=== PATIENT | female | born 1960 | race Caucasian/White ===

== ENCOUNTER → 2019-08-04 17:06 | Outpatient (CLI) | payer MEDICAID, SELFPAY ==
[2019-08-04 19:30] LABS: Amphetamine/Metha Screen,Urine Positive ng/mL (<1000); Barbiturates Screen,Urine Negative ng/mL (<200); Benzodiazepines Screen,Urine Negative ng/mL (<200); Cannabinoid Screen,Urine Negative ng/mL (<50); Cocaine Screen,Urine Negative ng/mL (<300); Methadone Screen,Urine Negative ng/mL (<300); Opiate Screen,Urine Negative ng/mL (<300); Phencyclidine Screen,Urine Negative ng/mL (<25)
== END ==
PROVIDERS: Visit Provider Emergency Medicine
DX: F90.9 Attention-deficit hyperactivity disorder, unspecified type (principal); G62.9 Polyneuropathy, unspecified
CPT/HCPCS: 80305

== ENCOUNTER → 2019-08-08 09:02 | Outpatient (CLI) | payer MEDICAID, OTHER, SELFPAY ==
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
--- NOTE | 2019-08-08 09:04 | MR_ITS ---
PROCEDURE: MR SHOULDER RT WO CON CLINICAL INDICATION: RIGHT SHOULDER PAIN COMPARISON: Plain radiographs 07/07/2019 TECHNIQUE: Routine multiplanar multisequence exam was performed. FINDINGS: There is a full-thickness tear of the supraspinatus tendon of the rotator cuff. A fluid-filled gap within the tendon is seen over an approximately 12 millimeter segment. Signal abnormality is also seen within the infra spinatus tendon for which partial substance tearing should be considered. There is a thin rim of fluid in the subacromial/subdeltoid bursa. A moderate amount of fluid is seen in the glenohumeral joint space. There is moderate acromioclavicular joint arthropathy and bony hypertrophy is seen projecting inferior to the acromioclavicular joint and there is some inferior lateral tilt of the distal acromion with inferior acromial spurring. Thickening and signal abnormality consistent with tendinosis and/or partial substance tearing of the subscapularis tendon is noted. There is medial subluxation of the bicipital tendon with some overlying fluid/edema without ajylin dislocation. This would raise the question of integrity of the transverse humeral ligament. Disrupted transverse humeral ligament is not excluded. The bicipital tendon appears intact. Glenoid Karina appear intact. IMPRESSION: Full-thickness tear of the supraspinatus tendon of rotator cuff. Partial-thickness tear of infraspinatus tendon appears to be present. Subscapularis tendinosis and/or partial substance tearing with probable disruption of transverse humeral ligament and with some medial subluxation of bicipital tendon as it overlies the superior humeral head Moderate joint effusion. Acromioclavicular joint arthropathy and hypertrophic bony changes which have likely contributed to chronic impingement. Dictated by: Luis Eduardo Fuentes 08/08/2019 13:48 Electronically signed by Luis Eduardo Fuentes in [place] 08/08/2019 13:48
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
== END ==
PROVIDERS: PCP Emergency Medicine; Visit Provider Orthopaedic Surgery Adult Reconstructive Orthopaedic Surgery
DX: M25.511 Pain in right shoulder (principal); M25.562 Pain in left knee; M25.561 Pain in right knee
CPT/HCPCS: 73221; 73721

== ENCOUNTER 2019-12-20 21:14 | Emergency (ER) | payer MEDICAID, SELFPAY ==
[2019-12-20 21:41] VITALS: BP 120/81; PULSE 81; RESP 20; TEMP 36.7; O2SAT 99; BMI 22.1
--- NOTE | 2019-12-20 22:04 | HMH.EDNVD ---
ED Disposition Clinical Impression: SBO (small bowel obstruction), Small bowel ischemia, Cocaine use Disposition: Xfer Short-Term Hosp Condition on Discharge: Critical Instructions: DI for Acute Abdomen Referrals: Provider,Referral, MD [Primary Care Provider] - - Critical Care Critical Care Time: Yes Attestation: On 12/20/19, the high probability of a clinically significant, sudden or life threatening deterioration of the following system(s) required my full and direct attention, intervention and personal management. The time I documented below is in addition to time spent performing reported procedures but includes the following listed in this critical care notation. Total Critical Care Time: 120 Vital system(s) involved:: Metabolic Failure My critical care processes included: Assessment & monitoring of V/S, Initial and Re-exams, Coordinating Care, Medication Orders and management, Documentation Medical Decision Making - Medical Records Medical records reviewed: Yes: I reviewed the patient's medical records. - Pb Inquiry Pt receiving controlled substance: No Vital Signs: 12/20/19 21:41 12/20/19 23:07 12/20/19 23:58 Temperature 98.0 F Temperature Source Oral Pulse Rate [Right] 81 63 66 Respiratory Rate 20 18 18 Blood Pressure [Right Arm] 120/81 128/82 162/91 H Blood Pressure Mean [Right Arm] 94 97 114 Blood Pressure Source [Right Arm] Automatic Cuff 02 Sat by Pulse Oximetry 99 99 100 Oxygen Delivery Method Room Air Room Air Room Air 12/21/19 00:23 12/21/19 00:48 Temperature Temperature Source Pulse Rate [Right] 84 84 Respiratory Rate 18 18 Blood Pressure [Right Arm] 171/95 H 126/83 Blood Pressure Mean [Right Arm] 120 97 Blood Pressure Source [Right Arm] 02 Sat by Pulse Oximetry 100 98 Oxygen Delivery Method Room Air Room Air - Lab Data Lab results reviewed: Yes: I reviewed the patient's lab results. Lab Results 12/20/19 22:25: Urine Opiates Screen Negative, Urine Methadone Screen Negative, Ur Barbituates Screen Negative, Ur Phencyclidine Scrn Negative, Ur Amphetamines Screen Not Reportable, U Benzodiazepines Scrn Negative, Urine Cocaine Screen Positive H, U Marijuana (THC) Screen Negative 12/20/19 22:35: Urine Color Yellow, Urine Appearance Clear, Urine pH 6.0, Ur Specific [place] 1.025, Urine Protein Negative, Urine Glucose (UA) Negative, Urine Ketones Trace, Urine Blood Trace-i, Urine Nitrate Negative, Urine Bilirubin Negative, Urine Urobilinogen 1.0, Ur Leukocyte Esterase Negative, Urine WBC Occasional, Ur Squamous Epith Cells Occasional, Calcium Oxalate Crystal Trace, Urine Bacteria Trace 12/20/19 23:00: WBC 6.3, RBC 4.25, Hgb 13.0, Hct 38.4, MCV 90.4, MCH 30.6, MCHC 33.9, RDW 14.3, Plt Count 253, MPV 7.7, Neut % (Auto) 75.9, Lymph % (Auto) 15.3, [place] % (Auto) 4.8, Eos % (Auto) 3.4, Baso % (Auto) 0.7, Neut # (Auto) 4.8, Lymph # (Auto) 1.0, [place] # (Auto) 0.3, Eos # (Auto) 0.2, Baso # (Auto) 0.1, ESR 38 H 12/20/19 23:00: Sodium 136, Potassium 3.2 L, Chloride 101, Carbon Dioxide 23, Anion Gap 15.2 H, BUN 19 H, Creatinine 0.70, Estimated Creat Clear 93, Estimated GFR 86, Est GFR ( Amer) 104, Glucose 100, Calcium 8.9, Total Bilirubin 0.7, AST 30, ALT 16, Alkaline Phosphatase 87, C-Reactive Protein 35.8 H, Total Protein 7.2, Albumin 4.0, Globulin 3.2, Albumin/Globulin Ratio 1.3, Amylase 53, Lipase 169 12/20/19 23:00: Lactate 1.0 12/20/19 23:00: SARS-CoV-2 IgG Ab (Rapid) Negative, SARS-CoV-2 IgM Ab (Rapid) Negative Result diagrams: 12/20/19 23:00 12/20/19 23:00 Orders (Tests/Meds): ED MEDICATIONS Generic Name Dose Route Start Last Admin Trade Name Freq PRN Reason Stop Dose Admin Sodium Chloride 1,000 mls @ 999 mls/hr 12/20/19 22:15 12/20/19 23:11 Sod Chlor 0.9% 1000ml Bag IV 12/20/19 23:15 999 mls/hr .Q1H1M TRAMAINE Administration Discontinued Medications Generic Name Dose Route Start Last Admin Trade Name Freq PRN Reason Stop Dose Admin Butorphanol Tartrate 1
--- NOTE | 2019-12-20 22:18 | PC.NURSE ---
multiple attempts at IV and Blood draw from lab and Nurses without success, Dr Stuart notified.
[2019-12-20 22:37] LABS: Microscopic, Urine URINE MICROSCOPIC (MICROSCOPIC)
[2019-12-20 22:39] LABS: Appearance,Urine CLEAR (Clear); Bilirubin,Urine Negative (Negative); Blood, Urine TRACE-I (Negative); Color,Urine YELLOW (Yellow); Glucose,Urine (UA) Negative (Negative); Ketones,Urine TRACE (Negative); Leukocyte Esterase,Urine Negative (Negative); Nitrate,Urine Negative (Negative); Protein,Urine Negative (Negative); Specific Gravity, Urine 1.025 (1.005-1.030)
--- NOTE | 2019-12-20 22:45 | PC.NURSE ---
Dr Stuart attempted right femoral central line unable to get placed at this time, Left EJ 18 ga placed.
[2019-12-20 22:51] LABS: Benzodiazepines Screen,Urine Negative ng/ml (<200)
[2019-12-20 22:52] LABS: Barbiturates Screen,Urine Negative ng/ml (<200)
[2019-12-20 22:53] LABS: Cannabinoid Screen,Urine Negative ng/ml (<50)
[2019-12-20 22:54] LABS: Cocaine Screen,Urine Positive ng/ml (<300); Methadone Screen,Urine Negative ng/ml (<300)
[2019-12-20 22:55] LABS: Opiate Screen,Urine Negative ng/ml (<300); Phencyclidine Screen,Urine Negative ng/ml (<25)
[2019-12-20 22:57] LABS: Bacteria,Urine Trace /lpf; Calcium Oxalate Crystals,Urine Trace /lpf; Squamous Epithelial Cell,Urine Occasional #/hpf (0-5); WBC,Urine Occasional #/hpf (0-3)
--- NOTE | 2019-12-20 23:00 | PC.NURSE ---
After multiple attempts by ed nurses, supervisor feed house, and lab, requested set up for a femoral line insertion. Pt was changed into a gown, educated on the procedure and signed consent, and moved to trauma bed 1. Dr Chris was consulted per MD. One failed attempt of femoral line insertion per MD. successfully inserted an 18g EJ on the left side.
[2019-12-20 23:07] VITALS: BP 128/82; PULSE 63; RESP 18; O2SAT 99
--- NOTE | 2019-12-20 23:08 | PC.NURSE ---
Femoral line site checked per RN. No bleeding or bruising noted.
[2019-12-20 23:13] LABS: Basophils # 0.1 K/mm3 (0-0.2); Basophils % 0.7 % (0.1-2.0); Eosinophils # 0.2 K/mm3 (0.0-0.4); Eosinophils % 3.4 % (0.1-12.0); Hematocrit 38.4 % (37.0-47.0); Lymphocytes % 15.3 % (10-50); Mean Corpuscular HGB Conc 33.9 g/dL (31.8-35.4); Mean Corpuscular Hemoglobin 30.6 pg (27.0-31.2); Mean Corpuscular Volume 90.4 fl (81-99); Mean Platelet Volume 7.7 fl (7.4-10.4); Monocytes # 0.3 K/mm3 (0.1-1.0); Monocytes % 4.8 % (1.7-9.3); Neutrophils # 4.8 K/mm3 (1.8-7.8); Neutrophils % 75.9 % (37.0-80.0); Platelet Count 253 K/mm3 (142-424); Red Blood Count 4.25 M/mm3 (4.20-5.40); Red Cell Distribution Width 14.3 % (11.5-17.5); White Blood Count 6.3 K/mm3 (4.8-10.8)
--- NOTE | 2019-12-20 23:14 | XR_ITS ---
PROCEDURE: XR CHEST AP CLINICAL HISTORY: chest pain Chest pain COMPARISON: XR CHEST AP from 05/17/2019 XR CHEST PORTABLE from 07/07/2019 CT CHEST WO CON from 07/07/2019 XR CHEST PORTABLE from 10/25/2019 FINDINGS: Unremarkable cardiovascular structures. There is a left external jugular angiocath present. The tip overlies the 1st rib. No evidence of pneumothorax The lungs are clear without infiltrates, suspicious nodules, or pleural effusions. Minimal atelectatic or fibrotic changes are present in the left lung base. Remaining lungs are clear. No acute bony findings. There is an old left 6th rib fracture IMPRESSION: No acute finding. Left external jugular Angiocath present Dictated by: Homer Mayfield MD 12/21/2019 08:42 Electronically signed by Homer Mayfield MD in [place] 12/21/2019 08:42
[2019-12-20 23:17] LABS: Chloride 101 mmol/L (98-107); Potassium 3.2 mmoL/L (3.5-5.1); Sodium 136 mmol/L (136-145)
[2019-12-20 23:19] LABS: Alanine Aminotransferase 16 U/L (12-78); Amylase 53 U/L (30-110); Aspartate Amino Transferase 30 U/L (14-36); Blood Urea Nitrogen 19 mg/dl (7-17); Creatinine Clearance Estimated 93 mL/min (50-200); Estimated Glomerular Filt Rate 86 ml/min (>60); GFR (African American) 104 ML/MIN (>60)
[2019-12-20 23:20] LABS: Albumin/Globulin Ratio 1.3 (1.1-1.8); Alkaline Phosphatase 87 U/L (38-126); Anion Gap 15.2 mEq/L (5-15); Bilirubin,Total 0.7 mg/dl (0.2-1.3); Calcium 8.9 mg/dl (8.4-10.2); Carbon Dioxide 23 mmol/L (22.0-30.0); Globulin 3.2 g/dL (1.3-3.2); Glucose 100 mg/dl (74-100); Lipase 169 U/L (23-300); Total Protein,Serum 7.2 g/dl (6.3-8.2)
--- NOTE | 2019-12-20 23:20 | CT_ITS ---
PROCEDURE: CT ABDOMEN PELVIS WO CON CLINICAL INDICATION: Abd. pain Generalized abdominal pain COMPARISON: No exams were available for comparison TECHNIQUE: Axial images obtained with sagittal and coronal reformats. All CT scans at the facility use one or more dose reduction, viz: automated exposure control, ma/kV adjustment per patient size (including targeted exams where dose is matched to indication, i.e. head), or iterative reconstruction technique. FINDINGS: LOWER THORAX: There is some patchy density in the right middle lobe and right lower lobe posteriorly nonspecific. There is thickening of the distal esophagus with small hiatal hernia noted. ABDOMEN & PELVIS: There is marked gaseous distention of the stomach. Lack of IV and oral contrast decreases sensitivity and specificity of the exam. The liver, spleen, adrenal glands, pancreas, has an unremarkable appearance. There is a 2.5 cm left renal cyst. A a mixed density lesion involves the right kidney with both hyperdensity and low-density at -16 Hounsfield units. This lesion measures 10 mm and may be due to an angio myelolipoma. There is marked gastric distension. There may have been prior gastric fundoplication. The duodenum is also distended to the 3rd portion of the duodenum. Dilated small bowel loops are present in the upper abdomen with air-fluid levels.. Transition point may be in the mid abdominal region. This is difficult to evaluate without oral contrast. There is questionable pneumatosis of the small bowel in the right lower quadrant. There are some mildly thickened small bowel loops. The colon is decompressed. No portal venous gas is evident. No free air is a apparent. No obvious abscess. Schmidt catheter is present. Gas is present within the soft tissues in the right inguinal area and could be due to recent vascular access attempt. Small amount of gas is also noted in the left gluteal region. No acute bony anomalies. IMPRESSION: 1. There is evidence of high-grade small bowel obstruction with possible pneumatosis suspicious for bowel ischemia. The pattern of the obstruction is unusual and could be in the setting of small-bowel non rotation. There is severe gaseous distention of the stomach and duodenum. 2. Multiple unopacified bowel loops in the abdomen or pelvis which could obscure or mimic pathology. If symptoms persist, consider repeat exam with IV and oral contrast. The Dictated by: Homer Mayfield MD 12/21/2019 10:31 Electronically signed by Homer Mayfield MD in [place] 12/21/2019 10:31
[2019-12-20 23:25] LABS: C-Reactive Protein 35.8 mg/L (0-4)
--- NOTE | 2019-12-20 23:34 | PC.NURSE ---
pt to Radiology.
[2019-12-20 23:53] LABS: Coronavirus 19 IgG Antibody Negative (Negative); Coronavirus 19 IgM Antibody Negative (Negative)
[2019-12-20 23:58] VITALS: BP 162/91; PULSE 66; RESP 18; O2SAT 100
[2019-12-21] LABS: Erythrocyte Sedimentation Rate 38 mm/hr (0-30)
--- NOTE | 2019-12-21 00:07 | ECG_ITS ---
APPROVED REPORT Exam: Resting ECG HR:69 bpm ECG Measurements Heart Rate 69 AXES VT 160 P 65 QRSd 94 QRS 33 QT 442 T 60 QTc 473 <Conclusion> Normal sinus rhythm Prolonged QT NDST-T Changes Abnormal ECG Electronically signed by : Luciano García, 12/22/2019 17:13:40
[2019-12-21 00:23] VITALS: BP 171/95; PULSE 84; RESP 18; O2SAT 100
--- NOTE | 2019-12-21 00:31 | PC.NURSE ---
Pt refused NG tube
[2019-12-21 00:48] VITALS: BP 126/83; PULSE 84; RESP 18; O2SAT 98
--- NOTE | 2019-12-21 01:06 | PC.NURSE ---
Dr Stuart on phone with [facility] for transfer
--- NOTE | 2019-12-21 01:14 | PC.NURSE ---
dr haile accepted pt to . [facility] called for transport. edith,aly calling report at this time
[2019-12-21 01:19] VITALS: BP 104/65; PULSE 78; RESP 18; O2SAT 98
[2019-12-21 02:25] VITALS: BP 113/66; PULSE 78; RESP 14; TEMP 36.7; O2SAT 98
[2019-12-24 17:08] LABS: Amphetamine Positive (.); Amphetamines Positive (.); Methamphetamine Positive (.)
[2019-12-24 20:18] LABS: Amphetamine (GC/MS) 2312 ng/mL (Cutoff=500); Methamphetamine (GC/MS) >4000 ng/mL (Cutoff=500)
== END 2019-12-21 02:28 | disposition short-term general hospital (02) ==
PROVIDERS: Emergency Provider Emergency Medicine
DX: K56.609 Unspecified intestinal obstruction, unspecified as to partial versus complete obstruction (principal); K55.9 Vascular disorder of intestine, unspecified; F14.10 Cocaine abuse, uncomplicated; J44.9 Chronic obstructive pulmonary disease, unspecified; K21.9 Gastro-esophageal reflux disease without esophagitis; F33.1 Major depressive disorder, recurrent, moderate; G43.709 Chronic migraine without aura, not intractable, without status migrainosus; F17.210 Nicotine dependence, cigarettes, uncomplicated; Z88.0 Allergy status to penicillin; Z79.899 Other long term (current) drug therapy; Z90.09 Acquired absence of other part of head and neck
CPT/HCPCS: 36556; 71045; 74176; 80053; 80305; 80324; 81001; 82150; 83605; 83690; 85025; 85651; 86140; 86328; 93005; 96365; 96366; 96372; 96375; 99285; C1751; J0595; J2405

== ENCOUNTER 2020-11-12 11:38 | Emergency (ER) | payer MEDICAID, SELFPAY ==
[2020-11-12 11:41] VITALS: BP 116/70; PULSE 55; RESP 16; TEMP 36.8; O2SAT 99; BMI 19.9
--- NOTE | 2020-11-12 12:02 | PC.NURSE ---
While preparing to start pts IV she asked how long before the Dr would be in and I stated that I did not know. Pt stated she was leaving and going to .
[2020-11-12 12:07] VITALS: BP 112/74; PULSE 74; RESP 16; TEMP 36.8; O2SAT 98
== END 2020-11-12 12:53 | disposition left against medical advice (07) ==
LOC: ER 12:52
PROVIDERS: Emergency Provider Emergency Medicine
DX: Z53.21 Procedure and treatment not carried out due to patient leaving prior to being seen by health care provider (principal)
CPT/HCPCS: 99211

== ENCOUNTER 2021-01-10 15:58 | Emergency (ER) | payer MEDICAID, SELFPAY ==
[2021-01-10 16:03] VITALS: BP 112/68; PULSE 83; RESP 14; TEMP 36.6; O2SAT 100; BMI 19.9
--- NOTE | 2021-01-10 16:24 | XR_ITS ---
PROCEDURE: XR FOREARM RT 2V CLINICAL INDICATION: dog bite COMPARISON: No exams were available for comparison FINDINGS: No fracture or dislocation. No lytic or blastic change. There is normal mineralization. There is extensive soft tissue gas along mostly the lateral aspect of elbow and forearm. No radiopaque foreign bodies are apparent. There is mild spurring along the distal and medial aspect of the ulna. Other findings:None. IMPRESSION: Soft tissue gas. No radiopaque foreign body or fracture. Dictated by: Homer Mayfield MD 01/10/2021 16:47 Homer Mayfield MD in [place] 01/10/2021 16:47
[2021-01-10 17:07] VITALS: BP 119/69; PULSE 85; RESP 16; TEMP 36.6
--- NOTE | 2021-01-10 17:09 | HMH.EDUTC ---
[facility] [place] Clinical Impression: Dog bite of right forearm Qualifiers: Encounter type: initial encounter Qualified Code(s): S51.851A - Open bite of right forearm, initial encounter Disposition: Home, Self-Care Condition on Discharge: Good Instructions: DI for Dog Bite Additional Instructions: Keep the wounds clean and dry. Follow up with your regular doctor. Take the antibiotics as directed and apply the topical antibiotics as directed. Make sure you stay in contact with the health department regarding the health of the dog. Watch the puncture wounds for signs of worsening infection, such as worsening redness, drainage, swelling, etc. GO TO THE ER FOR ANY WORSENING SYMPTOMS Prescriptions: Ibuprofen [Ibuprofen 600mg Tablet] 600 mg PO Q6HP PRN #30 tab PRN Reason: Mild Pain Transmission Status: Received by [employer]: [facility] #[id number] Sulfamethoxazole/Trimethoprim [Bactrim DS tablet] 1 each PO BID 10 Days #20 tab Transmission Status: Received by [employer]: [facility] #[id number] Mupirocin [Bactroban 2% Ointment 22gm tube] 1 applicatio TP TID 7 Days #1 tube Transmission Status: Received by [employer]: [facility] #[id number] clindamycin HCL [Cleocin HCl] 300 mg PO Q8H 10 Days #30 cap Transmission Status: Received by [employer]: [facility] #[id number] Levothyroxine Sodium [Levothyroxine 125mcg (0.125mg) Tab] 125 mcg PO DAILY 30 Days #30 tab Transmission Status: Received by [employer]: [facility] #[id number] Referrals: Marianna James MD [Primary Care Provider] - Time of Disposition: 17:16 Medical Decision Making - Medical Records Medical records reviewed: No: I reviewed the patient's medical records. - Pb Inquiry Pt receiving controlled substance: No Vital Signs: 01/10/21 16:03 01/10/21 17:07 Temperature 98 F 98 F Temperature Source Oral Pulse Rate 85 Pulse Rate [Right] 83 Respiratory Rate 14 16 Blood Pressure 119/69 Blood Pressure [Right Arm] 112/68 Blood Pressure Mean [Right Arm] 82 Blood Pressure Source [Right Arm] Automatic Cuff Blood Pressure Position [Right Arm] Sitting 02 Sat by Pulse Oximetry 100 Oxygen Delivery Method Room Air Orders (Tests/Meds): ED MEDICATIONS Discontinued Medications Generic Name Dose Route Start Last Admin Trade Name Tara PRN Reason Stop Dose Admin Tetanus/Reduced Diphtheria/Acell Pertussis 0.5 ml 01/10/21 16:25 01/10/21 16:37 Tet/Diphth/Pert-Adult 0.5ml Syringe IM 01/10/21 16:26 0.5 ml .ONCE ONE Administration Medical Decision Narrative: It was too late to suture the 2 puncture alex. Antibiotic ointment and a dressing was applied [facility] [place] - General Stated complaint: AO 01/10@0100Bite by dog R Arm Time Seen by Provider: 01/10/21 17:09 Mode of Arrival: Ambulatory Source of Information: Patient Limitations: No Limitations Description of Symptoms (Recalled from Triage Doc. by RN): pt was bit by one of her dogs last night as they were playing. pt has two lacs on her upper R forearm. HEENT Symptoms (Recalled from RN notes): No Resp Symptoms (Recalled from RN notes): No Skin Symptoms (Recalled from RN notes): Yes (lac on upper R forearm) MS Symptoms (Recalled from RN notes): No Functional Status (Recalled from RN notes): na - History of Present Illness Provider Complaint: She states that last night she was accidentily bit by one of her dogs. She has 2 dogs and she is unsure which one bit her. They both have had rabies vaccination. She states that they were beside her play fighting when one of them accidentily bumped into here and she recieved the bite to her right forearm. She has 2 puncture wounds on that arm. She is not sure if her tetanum immunization is up to date. She denies any other injury. - Related Data Home Medications Medication Instructions Recorded Confirmed hydroxyzine pamoate 50 mg capsule 50 mg PO DAILY #60 cap 05/15/19 01/01/20 duloxetine 60 mg capsule,delayed 60 mg PO DAILY #30 cap MDD . 06/09/19
== END 2021-01-10 17:37 | disposition home or self-care (01) ==
PROVIDERS: Emergency Provider Nurse Practitioner Family; PCP Family Medicine
DX: S51.851A Open bite of right forearm, initial encounter; Y92.019 Unspecified place in single-family (private) house as the place of occurrence of the external cause; W54.0XXA Bitten by dog, initial encounter; Z23 Encounter for immunization; J44.9 Chronic obstructive pulmonary disease, unspecified; K21.9 Gastro-esophageal reflux disease without esophagitis; F17.210 Nicotine dependence, cigarettes, uncomplicated; G43.709 Chronic migraine without aura, not intractable, without status migrainosus; Z79.899 Other long term (current) drug therapy; Z88.0 Allergy status to penicillin
CPT/HCPCS: 73090; 90715; 96372; 99202; G0463

== ENCOUNTER 2021-03-10 10:46 | Emergency (ER) | payer MEDICAID, SELFPAY ==
--- NOTE | 2021-03-10 10:31 | ECG_ITS ---
APPROVED REPORT Exam: Resting ECG HR:79 bpm ECG Measurements Heart Rate [address] 158 P 76 QRSd 90 QRS 22 QT 406 T 76 QTc 465 Conclusion Normal sinus rhythm Normal ECG Electronically signed by : Teddy Collier MD 03/10/2021 18:01:24
[2021-03-10 10:47] VITALS: BP 125/84; PULSE 83; RESP 18; TEMP 36.7; O2SAT 97; BMI 20.7
--- NOTE | 2021-03-10 10:48 | XR_ITS ---
PROCEDURE: XR CHEST PORTABLE CLINICAL HISTORY: chest pain COMPARISON: CR XR CHEST PORTABLE from 07/07/[address] CHEST WO CON from 07/07/2019 CR XR CHEST PORTABLE from 10/25/2019 CR XR CHEST AP from 12/20/2019 FINDINGS: The cardiomediastinal silhouette and pulmonary vascularity are within normal limits. There is mild left basilar atelectasis. Remaining lungs are clear. Old left 6th rib fracture. IMPRESSION: Mild left basilar atelectasis Dictated by: Homer Mayfield MD 03/10/2021 11:51 Homer Mayfield MD in [place] 03/10/2021 11:51
[2021-03-10 10:59] LABS: Basophils % 0.7 % (0.1-2.0); Eosinophils # 0.2 K/mm3 (0.0-0.4); Eosinophils % 3.4 % (0.1-12.0); Hematocrit 40.8 % (37.0-47.0); Hemoglobin 13.1 g/dL (12.2-16.2); Lymphocytes # 1.3 K/mm3 (0.7-4.5); Lymphocytes % 25.5 % (10-50); Mean Corpuscular HGB Conc 32.2 g/dL (31.8-35.4); Mean Corpuscular Hemoglobin 30.7 pg (27.0-31.2); Mean Corpuscular Volume 95.2 fl (81-99); Mean Platelet Volume 8.2 fl (7.4-10.4); Monocytes # 0.3 K/mm3 (0.1-1.0); Monocytes % 5.2 % (1.7-9.3); Neutrophils # 3.2 K/mm3 (1.8-7.8); Neutrophils % 65.1 % (37.0-80.0); Platelet Count 234 K/mm3 (142-424); Red Blood Count 4.28 M/mm3 (4.20-5.40); Red Cell Distribution Width 13.6 % (11.5-17.5); White Blood Count 4.9 K/mm3 (4.8-10.8)
[2021-03-10 11:01] LABS: Chloride 103 mmol/L (98-107); Sodium 140 mmol/L (136-145)
[2021-03-10 11:02] LABS: Potassium 3.9 mmoL/L (3.5-5.1)
[2021-03-10 11:04] LABS: Blood Urea Nitrogen 16 mg/dl (7-17); Creatinine Clearance Estimated 59 mL/min (50-200); Estimated Glomerular Filt Rate 102 ml/min (>60); GFR (African American) 123 ML/MIN (>60)
[2021-03-10 11:05] LABS: Anion Gap 13.9 mEq/L (5-15); Calcium 9.2 mg/dl (8.4-10.2); Carbon Dioxide 27 mmol/L (22.0-30.0); Glucose 100 mg/dl (74-100)
--- NOTE | 2021-03-10 11:11 | HMH.EDCP ---
ED Disposition Clinical Impression: Chest wall pain Disposition: Home, Self-Care Condition on Discharge: Good Instructions: DI for Chest Pain Referrals: Monika Garcia [Primary Care Provider] - Noe Zuleta MD [Staff Physician] - - Critical Care Critical Care Time: No Attestation: On 03/10/21, the high probability of a clinically significant, sudden or life threatening deterioration of the following system(s) required my full and direct attention, intervention and personal management. The time I documented below is in addition to time spent performing reported procedures but includes the following listed in this critical care notation. Medical Decision Making - Medical Records Medical records reviewed: Yes: I reviewed the patient's medical records. - Pb Inquiry Pt receiving controlled substance: No Vital Signs: 03/10/21 10:47 03/10/21 11:15 03/10/21 12:00 Temperature 98.1 F Temperature Source Oral Pulse Rate 76 84 Pulse Rate [Right] 83 Respiratory Rate 18 18 18 Blood Pressure 121/82 125/80 Blood Pressure [Right Arm] 125/84 Blood Pressure Mean 93 Blood Pressure Mean [Right Arm] 97 Blood Pressure Source Automatic Cuff Blood Pressure Position Sitting 02 Sat by Pulse Oximetry 97 98 96 Oxygen Delivery Method Room Air Room Air - Lab Data Lab Results 03/10/21 10:50: WBC 4.9, RBC 4.28, Hgb 13.1, Hct 40.8, MCV 95.2, MCH 30.7, MCHC 32.2, RDW 13.6, Plt Count 234, MPV 8.2, Neut % (Auto) 65.1, Lymph % (Auto) 25.5, [place] % (Auto) 5.2, Eos % (Auto) 3.4, Baso % (Auto) 0.7, Neut # (Auto) 3.2, Lymph # (Auto) 1.3, [place] # (Auto) 0.3, Eos # (Auto) 0.2, Baso # (Auto) 0.0 03/10/21 10:50: Sodium 140, Potassium 3.9, Chloride 103, Carbon Dioxide 27, Anion Gap 13.9, BUN 16, Creatinine 0.60, Estimated Creat Clear 59, Estimated GFR 102, Est GFR ( Amer) 123, Glucose 100, Calcium 9.2, Troponin I < 0.01 Result diagrams: 03/10/21 10:50 03/10/21 10:50 Orders (Tests/Meds): ED MEDICATIONS Generic Name Dose Route Start Last Admin Trade Name Freq PRN Reason Stop Dose Admin Sodium Chloride 10 ml 03/10/21 12:42 Sodium Chloride 0.9% 10ml Vial IV 04/09/21 12:41 NEEDED PRN to Dilute Lorazepam inj Discontinued Medications Generic Name Dose Route Start Last Admin Trade Name Freq PRN Reason Stop Dose Admin Hydrocodone Bitart/Acetaminophen 1 tab 03/10/21 11:05 03/10/21 11:19 Hydrocodone/Apap 5/325 Mg Tablet PO 03/10/21 11:06 1 tab ONCE ONE Administration Ketorolac Tromethamine 30 mg 03/10/21 11:04 03/10/21 11:20 Ketorolac 30mg/Ml Vial IV 03/10/21 11:05 30 mg ONCE ONE Administration Lorazepam 1 mg 03/10/21 12:42 03/10/21 12:58 Lorazepam 2mg/Ml Vial IV 03/10/21 12:43 1 mg ONCE ONE Administration ORDERS Category Date Time Status Troponin I Q3H Lab 03/10/21 14:00 Ordered Troponin I Q3H Lab 03/10/21 17:00 Ordered - Radiology Data #1 Image(s): Chest Image Reviewed: Yes I reviewed the patient's radiology results, Yes I reviewed the patient's radiology image, Yes I have reviewed radiologist's interpretation IMPRESSION: Mild left basilar atelectasis - ECG Data Tracing #1 I reviewed this ECG and interpreted as documented below: ECG initial impression date: 03/10/21 ECG initial impression time: 10:31 ECG normal with no acute: arrhythmias, ischemia, conduction abnormalities, chamber hypertrophy Normal Sinus Rhythm: Yes - Reevaluation(s) Time: 13:29 Reevaluation #1: On reevaluation, patient is feeling much better. Pain is improved. EKG normal. No significant changes on physical examination or chest x-ray. Patient will follow up with PCP. Given strict return precautions. Verbalized understanding. - ANGIE Score for Non-Stemi Age of Patient: 60-69 years old Heart Rate: 70-89 bpm Systolic Blood Pressure: 120-139 mmhg Serum Creatinine: <0.40 mg/dl CHF [place] Class: I-No CHF Other Risk Factors: None Non-
[2021-03-10 11:15] VITALS: BP 121/82; PULSE 76; RESP 18; O2SAT 98
[2021-03-10 11:18] LABS: Troponin I < 0.01 ng/ml (0.00-0.034)
[2021-03-10 12:00] VITALS: BP 125/80; PULSE 84; RESP 18; O2SAT 96
[2021-03-10 13:30] VITALS: BP 134/75; PULSE 76; RESP 18; TEMP 36.8; O2SAT 98
== END 2021-03-10 13:40 | disposition home or self-care (01) ==
PROVIDERS: Emergency Provider Emergency Medicine; PCP Family Medicine Sports Medicine
DX: R07.89 Other chest pain (principal); J44.9 Chronic obstructive pulmonary disease, unspecified; K21.9 Gastro-esophageal reflux disease without esophagitis; G43.709 Chronic migraine without aura, not intractable, without status migrainosus; E03.9 Hypothyroidism, unspecified; Z79.899 Other long term (current) drug therapy; Z88.0 Allergy status to penicillin
CPT/HCPCS: 71045; 80048; 84484; 85025; 93005; 99283

== ENCOUNTER 2021-03-24 10:22 | Emergency (ER) | payer MEDICAID, SELFPAY ==
[2021-03-24 10:23] VITALS: BP 116/74; PULSE 97; RESP 14; TEMP 36.9; O2SAT 96; BMI 19.9
--- NOTE | 2021-03-24 10:35 | XR_ITS ---
PROCEDURE INFORMATION: Exam: XR Soft Tissue Neck Exam date and time: 03/24/2021 10:35 AM Age: 61 years old Clinical indication: Other: PT states she swallowed stick pin, alleges that it is lodged in throat. ; Patient HX: Allegedly has stick pin lodged in throat TECHNIQUE: Imaging protocol: XR of the soft tissues of the neck. COMPARISON: CT CERVICAL SPINE WO CON 07/07/2019 1:06 PM FINDINGS: Airway: There is a focal calcification of the thyroid projected over the trachea on the lateral projection. Soft tissues: There is no radiopaque foreign body. Bones/joints: There are degenerative changes throughout the cervical spine. IMPRESSION: There is no retained radiopaque foreign body.
--- NOTE | 2021-03-24 10:36 | HMH.EDSKAF ---
ED Disposition Clinical Impression: Sensation of foreign body Disposition: Home, Self-Care Condition on Discharge: Good Instructions: DI for Skin Abscess Additional Instructions: Please return to the emergency department if you develop a fever or feel worse in any way. Referrals: Provider,Referral, [Primary Care Provider] - As needed - Critical Care Critical Care Time: No Attestation: On , the high probability of a clinically significant, sudden or life threatening deterioration of the following system(s) required my full and direct attention, intervention and personal management. The time I documented below is in addition to time spent performing reported procedures but includes the following listed in this critical care notation. Medical Decision Making - Medical Records Medical records reviewed: Yes: I reviewed the patient's medical records. - Pb Inquiry Pt receiving controlled substance: No Vital Signs: 03/24/21 10:23 03/24/21 11:03 Temperature 98.4 F Temperature Source Oral Pulse Rate 91 H Pulse Rate [Right] 97 H Respiratory Rate 14 16 Blood Pressure 101/46 L Blood Pressure [Right Arm] 116/74 Blood Pressure Mean 69 Blood Pressure Mean [Right Arm] 88 Blood Pressure Source [Right Arm] Automatic Cuff 02 Sat by Pulse Oximetry 96 95 Oxygen Delivery Method Room Air Orders (Tests/Meds): ED MEDICATIONS Discontinued Medications Generic Name Dose Route Start Last Admin Trade Name Freq PRN Reason Stop Dose Admin Diphenhydramine HCl 50 mg 03/24/21 10:56 03/24/21 11:05 Diphenhydramine 25mg Capsule PO 03/24/21 10:57 50 mg ONCE ONE Administration - Radiology Data #1 Image(s): Other (Soft Tissue Neck) Image Reviewed: Yes I reviewed the patient's radiology results, Yes I reviewed the patient's radiology image, Yes I have reviewed radiologist's interpretation Preliminary Findings: Normal/NAD Medical Decision Narrative: The patient presents to the emergency department stating that she inadvertently aspirated a sewing needle yesterday evening. She states that she can feel it in her throat. She states that she could actually touch it with her fingers in her throat. The patient's work-up in the emergency department shows no evidence of foreign body in her neck. Radiographs were obtained. They have been interpreted by the radiologist and looked at by me. I feel that the patient can be safely discharged home with instructions to follow-up with her primary care physician as needed. Skin/Abscess/FB HPI - General Chief complaint: Skin/Abscess/Foreign Body Stated complaint: swallowed pin needle Time Seen by Provider: 03/24/21 10:36 Mode of Arrival: Ambulatory Limitations: No Limitations Description of Symptoms (Recalled from ER Triage Doc. by RN): patient was sewing last night when she placed a stick pen/needle in her mouth and inhaled the needle. patient states that she feels the needle in her throat at this time, but it is not affecting her airway. no SOB at this time - History of Present Illness HPI narrative: Patient presents to the emergency department complaining of having a needle stuck in her throat. This apparently happened last night. The patient states that she had the needle in her hand and was laughing and aspirated it into her throat. She denies any coughing or shortness of breath. Onset (ago): day(s) (1) Tetanus up to date: yes - Related Data Home Medications Medication Instructions Recorded Confirmed hydroxyzine pamoate 50 mg capsule 50 mg PO DAILY #60 cap 05/15/19 01/01/20 duloxetine 60 mg capsule,delayed 60 mg PO DAILY #30 cap MDD . 06/09/19 01/01/20 release Diclofenac Sodium [Voltaren 100gm 2 g TOPICAL QID 10/25/19 01/01/20 Topical Gel] Fluticasone Propionate 2 spray INTRANASAL DAILY 10/25/19 01/01/20 Lidocaine 1 patch TRANSDERMAL DAILY 10/25/19 01/01/20 Omeprazole 20 mg PO DAILY 10/25/19 01/01/20 Topiramate 100 mg PO BID
[2021-03-24 11:03] VITALS: BP 101/46; PULSE 91; RESP 16; O2SAT 95
[2021-03-24 11:30] VITALS: BP 97/56; PULSE 81; RESP 18; O2SAT 98
[2021-03-24 12:01] VITALS: BP 103/74; PULSE 91; RESP 16; TEMP 36.8; O2SAT 98
== END 2021-03-24 12:05 | disposition home or self-care (01) ==
PROVIDERS: Emergency Provider Emergency Medicine
DX: R09.89 Other specified symptoms and signs involving the circulatory and respiratory systems (principal); T17.298A Other foreign object in pharynx causing other injury, initial encounter; J44.9 Chronic obstructive pulmonary disease, unspecified; K21.9 Gastro-esophageal reflux disease without esophagitis; F33.1 Major depressive disorder, recurrent, moderate; F17.210 Nicotine dependence, cigarettes, uncomplicated; Z88.0 Allergy status to penicillin
CPT/HCPCS: 70360; 99282

== ENCOUNTER → 2021-04-14 15:01 | Outpatient (CLI) | payer MEDICAID, SELFPAY | PROVIDERS: Visit Provider Nurse Practitioner | DX: Z20.822 Contact with and (suspected) exposure to COVID-19 (principal); U07.1 COVID-19 | CPT/HCPCS: C9803; U0003; U0005 ==

== ENCOUNTER → 2021-04-21 17:21 | Outpatient (CLI) | payer MEDICAID, SELFPAY | PROVIDERS: Visit Provider Nurse Practitioner | DX: Z20.822 Contact with and (suspected) exposure to COVID-19 (principal) | CPT/HCPCS: C9803; U0003; U0005 ==

== ENCOUNTER 2021-07-25 20:36 | Emergency (ER) | payer MEDICAID, SELFPAY ==
[2021-07-25 20:56] VITALS: BP 141/91; PULSE 67; RESP 19; TEMP 37.1; O2SAT 98; BMI 22.7
--- NOTE | 2021-07-25 21:02 | HMH.EDUTC ---
[facility] – [place], [place] Disposition Clinical Impression: Bronchitis, Medication refill Disposition: Home, Self-Care Condition on Discharge: Good Instructions: Acute Bronchitis, DI for Acute Bronchitis, Azithromycin, DI for COVID-19 (Suspected or Confirmed ) Additional Instructions: *Monitor Temp, Over the counter Motrin or Tylenol as directed/as needed Tylenol every 4 hours and Motrin every 6 hours (as long as your family doctor has told you that you can take it) for fever or pain. and straight to ER if unable to lower temp less than 101.0 after medication given *Warm salt water gargles may help to soothe the throat *Throat Lozenges *Warm fluids like tea with honey may help to soothe the throat *Sleep elevated *Humidifier/Vaporizer *Take medication as prescribed find family doctor to prescribe your daily medications Follow up IMMEDIATELY for new or worsening symptoms or no Noticeable improvement over the next 48-72 hours. 911 for difficulty breathing or swallowing You were tested for today for COVID19 your test result should be back in the next 24-48 hours, you may check the [facility] portal for your results if you have trouble logging on or seeing your results you may call You was given a handout with instructions for Self Quarantine and Self isolation for while you wait on test results and what to do if they are positive If you are positive the Health Dept will be contacting you also Make sure to take your Vitamins Vit. C Vit D and Zinc if you can take them Prescriptions: predniSONE [Deltasone 10mg tablet] 10 mg PO BID 5 Days #10 tab Transmission Status: Pending to [facility] #[id number] Levothyroxine Sodium [Levothyroxine 125mcg (0.125mg) Tab] 125 mcg PO DAILY 30 Days #30 tab Transmission Status: Pending to [facility] #[id number] Azithromycin [Z-Paulino 250mg Tab] 250 mg PO DIRECTED #6 tab Transmission Status: Pending to [facility] #[id number] Ondansetron [Zofran 4mg ODT] 4 mg PO TIDP PRN #12 tab PRN Reason: Nausea Transmission Status: Pending to [facility] #[id number] Referrals: Provider,Referral, MD [Primary Care Provider] - As needed Time of Disposition: 21:16 Medical Decision Making - Pb Inquiry Pt receiving controlled substance: No Pb was queried for this patient: No Vital Signs: 07/25/21 20:56 Temperature 98.7 F Temperature Source Oral Pulse Rate [Right Brachial] 67 Respiratory Rate 19 Blood Pressure [Right Arm] 141/91 H Blood Pressure Mean [Right Arm] 107 Blood Pressure Source [Right Arm] Automatic Cuff Blood Pressure Position [Right Arm] Sitting 02 Sat by Pulse Oximetry 98 Orders (Tests/Meds): ORDERS Category Date Time Status Covid-19 Nasal PCR ([facility]) Routine Lab 07/25/21 21:02 Ordered [facility] [place], [place] HPI - General Stated complaint: cough,congestion Time Seen by Provider: 07/25/21 21:04 Description of Symptoms (Recalled from Triage Doc. by RN): PT STATES THAT SHE STARTED HAVING A PRODUCTIVE COUGH ALONG WITH CHEST CONGESTION X'S 3 DAYS AND STATES SHE ALSO WANTS A MEDICATION REFILL ON HER THYROID MEDICATION HEENT Symptoms (Recalled from RN notes): No Resp Symptoms (Recalled from RN notes): Yes Skin Symptoms (Recalled from RN notes): No MS Symptoms (Recalled from RN notes): No Functional Status (Recalled from RN notes): WNL - History of Present Illness Provider Complaint: Patient states that she gets bronchitis about this time every year and she has to get medication for it before it turns into pneumonia States that she also has COPD States that she was recently around her grandson that was sick and she was wanted to get tested for COVID States also she is out of her thyroid medicaiton and wanted to see if she could get a refill until she can get into see her new PCP - Related Data Home Medications Medication Instructions Recorded Confirmed hydroxyzine pamoate 50 mg capsule 50 mg PO DAILY #60 cap 05/15/19 01/01/20 duloxetine 60 mg capsule,delayed 60 mg PO DAILY #30
[2021-07-25 21:17] VITALS: BP 141/91; PULSE 67; RESP 19; TEMP 37.1; O2SAT 98
== END 2021-07-25 21:28 | disposition home or self-care (01) ==
PROVIDERS: Emergency Provider Nurse Practitioner
DX: J20.9 Acute bronchitis, unspecified (principal); J44.9 Chronic obstructive pulmonary disease, unspecified; K21.9 Gastro-esophageal reflux disease without esophagitis; Z88.0 Allergy status to penicillin; Z76.0 Encounter for issue of repeat prescription
CPT/HCPCS: 99202; C9803; G0463; U0003; U0005

== ENCOUNTER 2021-08-08 19:53 | Emergency (ER) | payer MEDICAID, SELFPAY ==
--- NOTE | 2021-08-08 | CT_ITS ---
PROCEDURE INFORMATION: Exam: CT Angiography Head With Contrast, Arteriography Exam date and time: 08/08/2021 12:00 AM Age: 61 years old Clinical indication: Weakness and other: Lethargic; Additional info: Weakness lethargic TECHNIQUE: Imaging protocol: Computed tomography angiography of the head with contrast. Exam focused on the arteries. 3D rendering (Not supervised by radiologist): MIP and/or 3D reconstructed images were created by the technologist. Radiation optimization: All CT scans at this facility use at least one of these dose optimization techniques: automated exposure control; mA and/or kV adjustment per patient size (includes targeted exams where dose is matched to clinical indication); or iterative reconstruction. Contrast material: ISOVUE 370; Contrast volume: 100 ml; Contrast route: INTRAVENOUS (IV); COMPARISON: CT ANGIO HEAD 08/08/2021 11:05 PM FINDINGS: ANTERIOR CIRCULATION: Right internal carotid artery: Unremarkable. Intracranial segment is patent with no significant stenosis. No aneurysm. Right middle cerebral artery: Unremarkable. No occlusion or significant stenosis. No aneurysm. Right anterior cerebral artery: Unremarkable. No occlusion or significant stenosis. No aneurysm. Left internal carotid artery: Unremarkable. Intracranial segment is patent with no significant stenosis. No aneurysm. Left middle cerebral artery: Unremarkable. No occlusion or significant stenosis. No aneurysm. Left anterior cerebral artery: Unremarkable. No occlusion or significant stenosis. No aneurysm. POSTERIOR CIRCULATION: Right vertebral artery: Unremarkable. No occlusion or significant stenosis. No aneurysm. Left vertebral artery: Unremarkable. No occlusion or significant stenosis. No aneurysm. Basilar artery: Unremarkable. No occlusion or significant stenosis. No aneurysm. Right posterior cerebral artery: Unremarkable. No occlusion or significant stenosis. No aneurysm. Left posterior cerebral artery: Unremarkable. No occlusion or significant stenosis. No aneurysm. Brain: No definite mass, mass effect, or midline shift. Cerebral ventricles: No ventriculomegaly. Bones/joints: Unremarkable. No acute fracture. Soft tissues: Unremarkable. Paranasal sinuses: Small air-fluid level involving the left maxillary sinus. Moderate ethmoid sinus mucosal thickening is present. Lungs: Dependent bilateral lung base opacities favor atelectasis. IMPRESSION: No large vessel stenosis or occlusion.
[2021-08-08 20:25] VITALS: BP 121/57; PULSE 84; RESP 20; TEMP 36.8; O2SAT 95; BMI 25.7
--- NOTE | 2021-08-08 20:42 | HMH.EDUTC ---
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 - Lab Data Lab results reviewed: Yes: I reviewed the patient's lab results. Result diagrams: 08/08/21 20:54 08/08/21 20:54 - Radiology Data #1 Image(s): Chest Image Reviewed: Yes I have reviewed radiologist's interpretation Preliminary Findings: Abnormal - CT Data CT Scan: Head, C-Spine Time Received: 23:[address] Reviewed: Yes: I have viewed the radiologist's interpretation Preliminary Findings: Normal/NAD (cta head/neck -ok ) - ECG Data Tracing #1 Normal Sinus Rhythm: Yes Ischemic changes: non-specific ST-T wave changes <Dakota Stuart - Last Filed: 08/09/21 00:01> Vital Signs: 08/08/21 20:25 08/08/21 20:55 Temperature 98.2 F 98.2 F Temperature Source Oral Oral Pulse Rate [Right Brachial] 84 98 H Respiratory Rate 20 16 Blood Pressure [Right Arm] 121/57 L 127/94 H Blood Pressure Mean [Right Arm] 78 105 Blood Pressure Source [Right Arm] Automatic Cuff Blood Pressure Position [Right Arm] Sitting 02 Sat by Pulse Oximetry 95 97 Oxygen Delivery Method Room Air - Lab Data Lab Results 08/08/21 20:54: WBC 4.7 L, RBC 4.06 L, Hgb 12.5, Hct 40.1, MCV 98.9, MCH 30.9, MCHC 31.2 L, RDW 14.7, Plt Count 231, MPV 7.9, Neut % (Auto) 79.9, Lymph % (Auto) 8.4 L, [place] % (Auto) 5.3, Eos % (Auto) 2.7, Baso % (Auto) 3.8 H, Neut # (Auto) 3.8, Lymph # (Auto) 0.4 L, [place]upe # (Auto) 0.3, Eos # (Auto) 0.1, Baso # (Auto) 0.2, ESR 15 08/08/21 20:54: Sodium 137, Potassium 4.2, Chloride 105, Carbon Dioxide 24, Anion Gap 12.2, BUN 29 H, Creatinine 0.80, Estimated Creat Clear 61, Estimated GFR 73, Est GFR ( Amer) 88, Glucose 96, Calcium 8.9, Magnesium 1.8, Total Bilirubin 0.4, Direct Bilirubin 0.2, Conjugated Bilirubin 0.0, Indirect Bilirubin 0.2, Unconjugated Bilirubin 0.3, AST 41 H, ALT 20, Alkaline Phosphatase 56, Troponin I < 0.01, C-Reactive Protein 0.5, NT-Pro-B Natriuret Pep 79.9, Total Protein 7.7, Albumin 4.6, Procalcitonin 0.052 08/08/21 20:54: TSH 11.30 H, Thyroxine (T4) 12.0 H 08/08/21 20:55: Specimen Source Right radial, O2 % Room air, ABG pH 7.31 L, ABG pCO2 43.3, ABG pO2 84.7, ABG HCO3 21.1 L, ABG Total CO2 22.4 L, ABG O2 Saturation 95, ABG Base Excess -5.3 L, Homer Test Acceptable Orders (Tests/Meds): ED MEDICATIONS Discontinued Medications Generic Name Dose Route Start Last Admin Trade Name Freq PRN Reason Stop Dose Admin Iopamidol 100 ml 08/08/21 23:25 08/08/21 23:26 Iopamidol-370 (76%);100ml Bottle IV 08/08/21 23:26 100 ml ONCE ONE Administration Sodium Chloride 40 ml 08/08/21 23:25 08/08/21 23:26 0.9 % Sodium Chloride 50 Ml Vial IV 08/08/21 23:26 40 ml ONCE ONE Administration Sodium Chloride 10 ml 08/08/21 23:25 08/08/21 23:26 Sodium Chloride 0.9% 10ml Syr (Rad Only) IV 08/08/21 23:26 10 ml ONCE ONE Administration ORDERS Category Date Time Status Drug Screen,Urine Stat Lab 08/08/21 20:55 Ordered Rapid PCR Covid and Flu A/B Stat Lab 08/08/21 20:54 Received Troponin I Q3H Lab 08/09/21 02:56 Ordered Urinalysis and Microscopic Stat Lab 01
[2021-08-08 20:55] VITALS: BP 127/94; PULSE 98; RESP 16; TEMP 36.8; O2SAT 97; BMI 25.7
[2021-08-08 20:57] LABS: ABG Base Excess -5.3 mmol/L (-2.4-2.3); ABG HCO3 21.1 mmhg (22.0-26.0); ABG Oxygen Saturation 95 % (90-100); ABG PCO2 43.3 mmhg (35.0-45.0); ABG PH 7.31 mmol/L (7.35-7.45); ABG PO2 84.7 mmhg (80-100); ABG TCO2 22.4 mmhg (23-27)
[2021-08-08 20:58] LABS: Allen's Test Acceptable; Oxygen ROOM AIR %; Source Right Radial
--- NOTE | 2021-08-08 20:58 | CT_ITS ---
PROCEDURE INFORMATION: Exam: CT Cervical Spine Without Contrast Exam date and time: 08/08/2021 8:58 PM Age: 61 years old Clinical indication: Weakness and other: Lethargic; Additional info: Weakness lethargic TECHNIQUE: Imaging protocol: Computed tomography images of the cervical spine without contrast. Radiation optimization: All CT scans at this facility use at least one of these dose optimization techniques: automated exposure control; mA and/or kV adjustment per patient size (includes targeted exams where dose is matched to clinical indication); or iterative reconstruction. COMPARISON: CT CERVICAL SPINE WO CON 07/07/2019 1:06 PM FINDINGS: Bones/joints: No acute fracture. Normal alignment. Discs/Spinal canal/Neural foramina: Moderate loss of intervertebral disc space with degenerative changes at C3 through C7 greatest at C4-C5 with moderate bilateral neural foraminal stenosis from C3 through C5. Sinuses: Small air-fluid level of the left maxillary sinus. Lungs: Lung apices are normal. Soft tissues: Unremarkable. IMPRESSION: No CT evidence of acute osseous abnormality.
--- NOTE | 2021-08-08 20:58 | CT_ITS ---
PROCEDURE INFORMATION: Exam: CT Head Without Contrast Exam date and time: 08/08/2021 8:58 PM Age: 61 years old Clinical indication: Other: Generalized weakness and lethargic TECHNIQUE: Imaging protocol: Computed tomography of the head without contrast. Radiation optimization: All CT scans at this facility use at least one of these dose optimization techniques: automated exposure control; mA and/or kV adjustment per patient size (includes targeted exams where dose is matched to clinical indication); or iterative reconstruction. COMPARISON: CT HEAD/BRAIN WO CON 07/07/2019 1:06 PM FINDINGS: Brain: Normal. No hemorrhage. Unremarkable white matter. No mass effect. Cerebral ventricles: No ventriculomegaly. Paranasal sinuses: Small air-fluid level involving the left maxillary sinus. Moderate ethmoid sinus mucosal thickening is present. Mastoid air cells: Visualized mastoid air cells are well aerated. Bones/joints: Unremarkable. No acute fracture. Soft tissues: Unremarkable. IMPRESSION: No acute intracranial abnormality.
--- NOTE | 2021-08-08 21:03 | PC.NURSE ---
PATIENT SENT TO ER PER Kavon TROTTER APRN FOR FURTHER EVALUATION. REPORT GIVEN TO Dee ZAVALA RN BY Kavon TROTTER APRN
[2021-08-08 21:07] LABS: Basophils # 0.2 K/mm3 (0-0.2); Basophils % 3.8 % (0.1-2.0); Eosinophils # 0.1 K/mm3 (0.0-0.4); Eosinophils % 2.7 % (0.1-12.0); Hematocrit 40.1 % (37.0-47.0); Hemoglobin 12.5 g/dL (12.2-16.2); Lymphocytes # 0.4 K/mm3 (0.7-4.5); Lymphocytes % 8.4 % (10-50); Mean Corpuscular HGB Conc 31.2 g/dL (31.8-35.4); Mean Corpuscular Hemoglobin 30.9 pg (27.0-31.2); Mean Corpuscular Volume 98.9 fl (81-99); Mean Platelet Volume 7.9 fl (7.4-10.4); Monocytes # 0.3 K/mm3 (0.1-1.0); Monocytes % 5.3 % (1.7-9.3); Neutrophils # 3.8 K/mm3 (1.8-7.8); Neutrophils % 79.9 % (37.0-80.0); Platelet Count 231 K/mm3 (142-424); Red Blood Count 4.06 M/mm3 (4.20-5.40); Red Cell Distribution Width 14.7 % (11.5-17.5); White Blood Count 4.7 K/mm3 (4.8-10.8)
--- NOTE | 2021-08-08 21:09 | ECG_ITS ---
APPROVED REPORT Exam: Resting ECG HR:74 bpm ECG Measurements Heart Rate 74 AXES ME 161 P 63 QRSd 98 QRS 40 QT 404 T 66 QTc 431 Conclusion SINUS RHYTHM NORMAL ECG UNCONFIRMED REPORT Electronically signed by : Teddy Collier MD 08/09/2021 13:45:30
[2021-08-08 21:23] LABS: Alanine Aminotransferase 20 U/L (12-78); Albumin Level 4.6 g/dl (3.5-5.0); Alkaline Phosphatase 56 U/L (38-126); Anion Gap 12.2 mEq/L (5-15); Aspartate Amino Transferase 41 U/L (14-36); Bilirubin,Direct 0.2 mg/dl (0.0-0.4); Bilirubin,Indirect 0.2 mg/dL (0.0-0.9); Bilirubin,Total 0.4 mg/dl (0.2-1.3); Bilirubin,Unconjugated 0.3 mg/dL (0.0-1.1); Blood Urea Nitrogen 29 mg/dl (7-17); Calcium 8.9 mg/dl (8.4-10.2); Carbon Dioxide 24 mmol/L (22.0-30.0); Chloride 105 mmol/L (98-107); Creatinine Clearance Estimated 61 mL/min (50-200); Estimated Glomerular Filt Rate 73 ml/min (>60); GFR (African American) 88 ML/MIN (>60); Glucose 96 mg/dl (74-100); Magnesium 1.8 mg/dl (1.6-2.3); Potassium 4.2 mmoL/L (3.5-5.1); Sodium 137 mmol/L (136-145); Total Protein,Serum 7.7 g/dl (6.3-8.2)
[2021-08-08 21:28] LABS: C-Reactive Protein 0.5 mg/L (0-4)
[2021-08-08 21:31] LABS: Erythrocyte Sedimentation Rate 15 mm/hr (0-30)
--- NOTE | 2021-08-08 21:31 | PC.NURSE ---
Patient taken to restroom for urine sample, unable to void. Patient refused both in and out catheter and rivera catheter.
[2021-08-08 21:37] LABS: NT Pro Brain Natriuretic Pep. 79.9 pg/mL (0-125)
[2021-08-08 21:38] LABS: Troponin I < 0.01 ng/ml (0.00-0.034)
[2021-08-08 21:42] LABS: Procalcitonin 0.052 ng/mL (0.0-2.0)
--- NOTE | 2021-08-08 22:01 | XR_ITS ---
PROCEDURE INFORMATION: Exam: XR Chest Exam date and time: 08/08/2021 10:01 PM Age: 61 years old Clinical indication: Other: Weakness, lethargic; Additional info: Weak lethargic TECHNIQUE: Imaging protocol: XR of the chest. Views: 1 view. COMPARISON: CR XR CHEST PORTABLE 03/10/2021 10:50 AM FINDINGS: Lungs: Irregular densities in the left lower lobe and minimally in the right lung base. These findings could indicate atelectasis or pneumonia. Emphysema. Pleural spaces: Unremarkable. No pleural effusion. No pneumothorax. Heart/Mediastinum: Unremarkable. No cardiomegaly. Bones/joints: Unremarkable. IMPRESSION: Atelectasis versus developing pneumonia in the lung bases.
--- NOTE | 2021-08-08 22:47 | CT_ITS ---
PROCEDURE INFORMATION: Exam: CT Angiography Neck With Contrast Exam date and time: 08/08/2021 10:47 PM Age: 61 years old Clinical indication: Weakness and other: Lethargic; Additional info: Weakness lethargic TECHNIQUE: Imaging protocol: Computed tomography angiography of the neck with contrast. 3D rendering (Not supervised by radiologist): MIP and/or 3D reconstructed images were created by the technologist. Radiation optimization: All CT scans at this facility use at least one of these dose optimization techniques: automated exposure control; mA and/or kV adjustment per patient size (includes targeted exams where dose is matched to clinical indication); or iterative reconstruction. Contrast material: ISOVUE 370; Contrast volume: 100 ml; Contrast route: INTRAVENOUS (IV); COMPARISON: CT CERVICAL SPINE WO CON 08/08/2021 10:04 PM FINDINGS: Right common carotid artery: No stenosis. No dissection or occlusion. Right internal carotid artery: No stenosis of the extracranial segment. No dissection or occlusion. Right external carotid artery: No occlusion or stenosis of the origin. Left common carotid artery: No stenosis. No dissection or occlusion. Left internal carotid artery: No stenosis of the extracranial segment. No dissection or occlusion. Left external carotid artery: No occlusion or stenosis of the origin. Right vertebral artery: No stenosis. No dissection or occlusion. Left vertebral artery: No stenosis. No dissection or occlusion. Aortic arch: Aberrant right subclavian incidentally noted. Soft tissues: Normal. No significant soft tissue swelling. Bones/joints: No acute fracture. IMPRESSION: No stenosis or occlusion. REFERENCES: NASCET CRITERIA. The degree of internal carotid artery stenosis is based on NASCET criteria. Normal is no stenosis. Mild is less than 50% stenosis. Moderate is 50-69% stenosis. Severe is 70% to 99% stenosis. Total occlusion is no detectable patent lumen.
[2021-08-08 23:05] LABS: Influenza A, PCR Not Detected (NotDetected); Influenza B, PCR Not Detected (NotDetected)
[2021-08-08 23:55] LABS: Coronavirus 19, PCR Detected (NotDetected)
[2021-08-09 02:54] VITALS: BP 125/95; PULSE 95; RESP 20; TEMP 36.8; O2SAT 99
== END 2021-08-09 02:57 | disposition home or self-care (01) ==
LOC: UTC 20:50 → ER 20:54
PROVIDERS: Emergency Provider Emergency Medicine
DX: U07.1 COVID-19 (principal); G47.429 Narcolepsy in conditions classified elsewhere without cataplexy; K21.9 Gastro-esophageal reflux disease without esophagitis; J45.909 Unspecified asthma, uncomplicated; J44.9 Chronic obstructive pulmonary disease, unspecified
CPT/HCPCS: 70450; 70496; 70498; 71045; 72125; 80048; 80076; 82803; 83735; 83880; 84145; 84436; 84443; 84484; 85025; 85651; 86140; 93005; 99283; C9803; Q9967; U0003; U0005

== ENCOUNTER → 2021-08-15 16:17 | Outpatient (CLI) | payer MEDICAID, SELFPAY | PROVIDERS: Visit Provider Nurse Practitioner | DX: U07.1 COVID-19 (principal) | CPT/HCPCS: C9803; U0003; U0005 ==

== ENCOUNTER 2021-10-30 20:04 | Emergency (ER) | payer MEDICAID, SELFPAY ==
--- NOTE | 2021-10-30 20:01 | ECG_ITS ---
APPROVED REPORT Exam: Resting ECG HR:80 bpm ECG Measurements Heart Rate 80 AXES LA 167 P 74 QRSd 103 QRS 24 QT 385 T 59 QTc 421 Conclusion SINUS RHYTHM NORMAL ECG UNCONFIRMED REPORT Electronically signed by : Teddy Collier MD 10/31/2021 16:20:40
[2021-10-30 20:06] VITALS: BP 115/72; PULSE 83; RESP 18; TEMP 36.9; O2SAT 97; BMI 20.5
--- NOTE | 2021-10-30 20:16 | HMH.EDCP ---
ED Disposition Clinical Impression: Pleurisy Contusion of rib on left side Qualifiers: Encounter type: initial encounter Qualified Code(s): S20.212A - Contusion of left front wall of thorax, initial encounter Disposition: Home, Self-Care Condition on Discharge: Good Instructions: DI for Rib Contusion Additional Instructions: use meds and call pcp for follow up Prescriptions: predniSONE [Prednisone 20mg Tab] 20 mg PO BID #10 tab Transmission Status: Pending to [id number] Referrals: Provider,Referral, [Referring] - - Critical Care Critical Care Time: No Attestation: On 10/30/21, the high probability of a clinically significant, sudden or life threatening deterioration of the following system(s) required my full and direct attention, intervention and personal management. The time I documented below is in addition to time spent performing reported procedures but includes the following listed in this critical care notation. Medical Decision Making - Medical Records Medical records reviewed: Yes: I reviewed the patient's medical records. - Pb Inquiry Pt receiving controlled substance: No Vital Signs: 10/30/21 20:06 10/30/21 21:01 10/30/21 21:30 Temperature 98.4 F Temperature Source Oral Pulse Rate 73 70 Pulse Rate [Left Radial] 83 Respiratory Rate 18 15 15 Blood Pressure 98/57 L 105/67 L Blood Pressure [Right Arm] 115/72 Blood Pressure Mean [Right Arm] 86 Blood Pressure Position [Right Arm] Sitting 02 Sat by Pulse Oximetry 97 97 99 Oxygen Delivery Method Room Air Room Air Room Air - Lab Data Lab results reviewed: Yes: I reviewed the patient's lab results. Lab Results 10/30/21 20:00: WBC 5.3, RBC 3.76 L, Hgb 11.5 L, Hct 36.3 L, MCV 96.5, MCH 30.7, MCHC 31.8, RDW 14.3, Plt Count 248, MPV 8.2, Neut % (Auto) 46.3, Lymph % (Auto) 39.9, [place] % (Auto) 6.7, Eos % (Auto) 5.1, Baso % (Auto) 2.0, Neut # (Auto) 2.5, Lymph # (Auto) 2.1, [place] # (Auto) 0.4, Eos # (Auto) 0.3, Baso # (Auto) 0.1 10/30/21 20:00: Sodium 139, Potassium 3.7, Chloride 110 H, Carbon Dioxide 24, Anion Gap 8.7, BUN 11, Creatinine 0.90, Estimated Creat Clear 57, Estimated GFR 64, Est GFR ( Amer) 77, Glucose 53 L, Calcium 8.1 L, Total Bilirubin 0.5, Direct Bilirubin 0.5 H, Conjugated Bilirubin 0.0, Indirect Bilirubin 0.0, Unconjugated Bilirubin 0.0, AST 39 H, ALT 24, Alkaline Phosphatase 57, Troponin I < 0.01, Total Protein 6.8, Albumin 4.0 Result diagrams: 10/30/21 20:00 10/30/21 20:00 Orders (Tests/Meds): ED MEDICATIONS Generic Name Dose Route Start Last Admin Trade Name Freq PRN Reason Stop Dose Admin Sodium Chloride 1,000 mls @ 999 mls/hr 10/30/21 20:45 10/30/21 20:39 Sod Chlor 0.9% 1000ml Bag IV 10/30/21 21:45 999 mls/hr .Q1H1M TRAMAINE Administration Discontinued Medications Generic Name Dose Route Start Last Admin Trade Name Freq PRN Reason Stop Dose Admin Iopamidol 70 ml 10/30/21 21:11 10/30/21 21:17 Iopamidol-370 (76%);100ml Bottle IV 10/30/21 21:12 70 ml ONCE ONE Administration Ketorolac Tromethamine 30 mg 10/30/21 22:21 Ketorolac 30mg/Ml Vial IV 10/30/21 22:22 ONCE ONE Methylprednisolone Sodium Succinate 125 mg 10/30/21 22:20 Methylprednisolone Sod Succ 125mg Vial IV 10/30/21 22:21 ONCE ONE Sodium Chloride 50 ml 10/30/21 21:11 10/30/21 21:17 0.9 % Sodium Chloride 50 Ml Vial IV 10/30/21 21:12 50 ml ONCE ONE Administration Sodium Chloride 10 ml 10/30/21 21:11 10/30/21 21:17 Sodium Chloride 0.9% 10ml Syr (Rad Only) IV 10/30/21 21:12 10 ml ONCE ONE Administration ORDERS Category Date Time Status Troponin I Q3H Lab 10/30/21 23:30 Ordered Troponin I Q3H Lab 10/31/21 02:30 Ordered - Radiology Data #1 Image(s): Chest Image Reviewed: Yes I have reviewed radiologist's interpretation Preliminary Findings: Normal/NAD - CT Data CT Scan: Chest Time Received: 22:[address] Reviewed: Yes: I have
--- NOTE | 2021-10-30 20:20 | XR_ITS ---
PROCEDURE INFORMATION: Exam: XR Chest Exam date and time: 10/30/2021 8:17 PM Age: 61 years old Clinical indication: Other: Lethargic; Sternal or substernal pain; Additional info: Chest pain TECHNIQUE: Imaging protocol: XR of the chest. Views: 2 views. COMPARISON: CR XR CHEST PORTABLE 08/08/2021 10:10 PM FINDINGS: Lungs: Streaky basilar airspace opacities likely atelectatic. No lobar consolidation. Pleural spaces: Unremarkable. No pleural effusion. No pneumothorax. Heart/Mediastinum: Unremarkable. No cardiomegaly. Bones/joints: Unremarkable. IMPRESSION: No acute cardiopulmonary process.
--- NOTE | 2021-10-30 20:26 | PC.NURSE ---
PT TO RADIOLOGY VIA WHEELCHAIR.
--- NOTE | 2021-10-30 20:51 | CT_ITS ---
PROCEDURE INFORMATION: Exam: CTA Chest With Contrast Exam date and time: 10/30/2021 9:10 PM Age: 61 years old Clinical indication: Sternal or substernal pain; Patient HX: Chest pain, left arm pain, former smoker. TECHNIQUE: Imaging protocol: Computed tomographic angiography of the chest with contrast. 3D rendering (Not supervised by radiologist): MIP and/or 3D reconstructed images were created by the technologist. Radiation optimization: All CT scans at this facility use at least one of these dose optimization techniques: automated exposure control; mA and/or kV adjustment per patient size (includes targeted exams where dose is matched to clinical indication); or iterative reconstruction. Contrast material: ISOVUE 370; Contrast volume: 70 ml; Contrast route: INTRAVENOUS (IV); COMPARISON: CT CHEST WO CON 07/07/2019 10:27 AM FINDINGS: Pulmonary arteries: Normal. No pulmonary emboli. Aorta: Calcified atherosclerosis. No aortic aneurysm. No aortic dissection. Thyroid: Multiple coarse thyroid calcifications measuring to 8 mm. Lungs: There are hypoventalitory changes at the lung bases. Pleural spaces: No pneumothorax. No pleural effusion. Heart: No cardiomegaly. No pericardial effusion. Lymph nodes: No enlarged lymph nodes. Diaphragm: Small hiatal hernia. Liver: Scattered hepatic calcifications. Spleen: There are multiple splenic calcifications likely on the basis of prior granulomatous exposure. Kidneys and ureters: Renal cysts measuring up to 3 cm. 7 mm right renal hyperdensity which is indeterminate and for which ultrasound was previously recommended. Bones/joints: No acute fracture. Soft tissues: No significant swelling. IMPRESSION: No acute cardiopulmonary process. Multiple coarse thyroid calcifications measuring to 8 mm which can be further evaluated with ultrasound on a nonemergent basis if it has not been previously. 7 mm right renal hyperdensity which is indeterminate and for which ultrasound was previously recommended also on a nonemergent basis.
--- NOTE | 2021-10-30 20:51 | PC.NURSE ---
ASSISTED PATIENT TO BATHROOM
[2021-10-30 20:52] LABS: Basophils # 0.1 K/mm3 (0-0.2); Eosinophils # 0.3 K/mm3 (0.0-0.4); Eosinophils % 5.1 % (0.1-12.0); Hematocrit 36.3 % (37.0-47.0); Hemoglobin 11.5 g/dL (12.2-16.2); Lymphocytes # 2.1 K/mm3 (0.7-4.5); Lymphocytes % 39.9 % (10-50); Mean Corpuscular HGB Conc 31.8 g/dL (31.8-35.4); Mean Corpuscular Hemoglobin 30.7 pg (27.0-31.2); Mean Corpuscular Volume 96.5 fl (81-99); Mean Platelet Volume 8.2 fl (7.4-10.4); Monocytes # 0.4 K/mm3 (0.1-1.0); Monocytes % 6.7 % (1.7-9.3); Neutrophils # 2.5 K/mm3 (1.8-7.8); Neutrophils % 46.3 % (37.0-80.0); Platelet Count 248 K/mm3 (142-424); Red Blood Count 3.76 M/mm3 (4.20-5.40); Red Cell Distribution Width 14.3 % (11.5-17.5); White Blood Count 5.3 K/mm3 (4.8-10.8)
[2021-10-30 20:53] LABS: Chloride 110 mmol/L (98-107); Potassium 3.7 mmoL/L (3.5-5.1); Sodium 139 mmol/L (136-145)
[2021-10-30 20:55] LABS: Blood Urea Nitrogen 11 mg/dl (7-17); Creatinine Clearance Estimated 57 mL/min (50-200); Estimated Glomerular Filt Rate 64 ml/min (>60); GFR (African American) 77 ML/MIN (>60)
[2021-10-30 20:56] LABS: Alanine Aminotransferase 24 U/L (12-78); Alkaline Phosphatase 57 U/L (38-126); Anion Gap 8.7 mEq/L (5-15); Aspartate Amino Transferase 39 U/L (14-36); Bilirubin,Direct 0.5 mg/dl (0.0-0.4); Bilirubin,Total 0.5 mg/dl (0.2-1.3); Calcium 8.1 mg/dl (8.4-10.2); Carbon Dioxide 24 mmol/L (22.0-30.0); Glucose 53 mg/dl (74-100); Total Protein,Serum 6.8 g/dl (6.3-8.2)
[2021-10-30 21:01] VITALS: BP 98/57; PULSE 73; RESP 15; O2SAT 97
[2021-10-30 21:15] LABS: Troponin I < 0.01 ng/ml (0.00-0.034)
[2021-10-30 21:30] VITALS: BP 105/67; PULSE 70; RESP 15; O2SAT 99
[2021-10-30 22:00] VITALS: BP 94/59; PULSE 70; RESP 12; O2SAT 94
[2021-10-30 22:35] VITALS: BP 93/57; PULSE 88; RESP 18; TEMP 36.6; O2SAT 95
== END 2021-10-30 22:39 | disposition home or self-care (01) ==
PROVIDERS: Emergency Provider Emergency Medicine; PCP Emergency Medicine
DX: S20.212A Contusion of left front wall of thorax, initial encounter (principal); R07.81 Pleurodynia; K21.9 Gastro-esophageal reflux disease without esophagitis; M54.9 Dorsalgia, unspecified; G89.29 Other chronic pain; G43.909 Migraine, unspecified, not intractable, without status migrainosus; J44.9 Chronic obstructive pulmonary disease, unspecified; F32.A Depression, unspecified; Z79.51 Long term (current) use of inhaled steroids; Z79.52 Long term (current) use of systemic steroids; Z79.899 Other long term (current) drug therapy; Z88.0 Allergy status to penicillin; Z80.9 Family history of malignant neoplasm, unspecified; Z82.49 Family history of ischemic heart disease and other diseases of the circulatory system; Z83.3 Family history of diabetes mellitus
CPT/HCPCS: 71046; 71275; 80048; 80076; 84484; 85025; 93005; 96361; 96365; 96374; 96375; 99285; Q9967

== ENCOUNTER 2022-03-16 13:55 | Emergency (ER) | payer MEDICAID, SELFPAY ==
--- NOTE | 2022-03-16 14:05 | PC.NURSE ---
Pt reporting R shoulder pain, reports pain began after lifting a gallon of milk. Pt reports she felt something pop in her shoulder. No obvious deformity noted. Pt reports has hx of torn rotator cuff on in R shoulder and is supposed to be having surgery on it. BP 104/70 HR 91 SaO2 98% RA RR 18 Temp 98.4 oral
--- NOTE | 2022-03-16 14:07 | PC.NURSE ---
pt in lobby waiting room at this time until a bed in ER is available. Pt notified of this and verbalized understanding.
[2022-03-16 14:17] VITALS: BMI 19.9
--- NOTE | 2022-03-16 14:18 | XR_ITS ---
FINAL REPORT CLINICAL HISTORY: pain when picking up a gallon of milk COMPARISON: July 07, 2019 FINDINGS: RIGHT SHOULDER: 3 views of the right shoulder were obtained. There is no acute fracture or dislocation. There are mild degenerative changes of the acromioclavicular and the glenohumeral joints. There is no soft tissue abnormality. IMPRESSION: Mild degenerative change, worse. Reviewed, Interpreted and Dictated by Freddy Amaya III, MD Transcribed by Nj Epperson Authenticated and [facility]
--- NOTE | 2022-03-16 14:19 | PC.NURSE ---
rad notified of xray order.
--- NOTE | 2022-03-16 14:22 | PC.NURSE ---
pt to xray
[2022-03-16 16:01] VITALS: BP 103/74; PULSE 64; RESP 16; TEMP 37; O2SAT 98; BMI 19.9
--- NOTE | 2022-03-16 16:37 | PC.NURSE ---
RICH ROE at
--- NOTE | 2022-03-16 16:50 | HMH.EDGENADL ---
Discharge Plan Disposition Patient Disposition: Home, Self-Care Condition: Good Chief Complaint: PAIN Prescriptions Prescriptions: No Action albuterol sulfate [Ventolin HFA] 90 mcg/actuation HFA aerosol inhaler 2 puff INHALATION Q6H PRN (Reason: shortness of breath or wheezing) Qty: 18 2RF levothyroxine 125 mcg capsule 125 mcg PO DAILY Qty: 90 0RF topiramate 100 mg tablet 100 mg PO BID Qty: 60 2RF Breo Ellipta 100-25 mcg/dose blister with device 1 inh IH DAILY Qty: 60 2RF bupropion HCl 75 mg tablet 75 mg PO BID Qty: 60 2RF duloxetine [Cymbalta] 60 mg capsule,delayed release(DR/EC) 60 mg PO DAILY Qty: 30 2RF buprenorphine-naloxone 8-2 mg tablet, sublingual 2 tab SL Label Comments: PLACE 2 TABLETS UNDER THE TONGUE DAILY. naloxone 4 mg/actuation spray,non-aerosol 4 mg NS buspirone 5 mg tablet 5 mg PO BID Qty: 60 1RF ibuprofen 600 mg tablet 600 mg PO BID PRN (Reason: pain) Qty: 60 0RF lidocaine 5 % adhesive patch,medicated 1 patch TP DAILY Qty: 30 0RF Rx Instructions: leave on most painful area for up to 12 hrs diclofenac sodium 1 % gel 2 gm TP QID Qty: 100 0RF Rx Instructions: apply to single elbow, wrist or hand; for hand includes palm/fingers/back of hand gabapentin 600 mg tablet 600 mg PO QID Qty: 120 1RF dextroamphetamine-amphetamine [Adderall] 20 mg tablet 20 mg PO BID Qty: 60 0RF Rx Instructions: administer doses at least 4-6 hours apart loratadine 10 MG tablet 10 mg PO DAILY Referrals Follow up/Referrals: Dakota Stuart MD [Primary Care Provider] - See instructions Activity Restrictions/Add. Instructions Additional Instructions/Restrictions: Follow-up for your MRI as scheduled. If you have any other trauma, numbness/tingling/weakness in your arm, or any other concerning history, return to the emergency department for further evaluation. Clinical Impressions Clinical Impression: Injury of right shoulder Stand Alone Forms Stand Alone Forms: Work/School Release Instructions Patient Instructions: DI for Acute Pain -- Adult Discharge ED Provider: Ankit Strong General Adult HPI General Chief complaint: PAIN Stated complaint: pain in R arm Time Seen by Provider: 03/16/22 14:10 Mode of Arrival: Ambulatory Source of Information: Patient Limitations: No Limitations Description of Symptoms (Recalled from ER Triage Doc. 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 History of Present Illness HPI narrative: This is a 62-year-old female with history of right rotator cuff injury, right biceps tendon injury who is presenting with right shoulder pain. Patient states that approximately 3 hours prior to arrival, she was picking up a gallon of milk when she heard a pop and pain in her right shoulder. Since that time, she has had difficulty moving it in all planes with significant pain, 8 out of 10 pain when she is moving, 4 out of 10 at rest. She has not tried any Tylenol, ibuprofen, or noticed any interventions that make it better. Nothing in particular other than movement makes it worse. Denies any acute trauma, numbness/tingling/weakness in the upper extremity, or any other concerning symptoms. Related Data Home Medications Medication Instructions Recorded Confirmed loratadine 10 mg tablet 10 mg PO DAILY ALLERGIES 10/30/21 02/27/22 buprenorphine 8 mg-naloxone 2 mg 2 tab sublingual 02/27/22 02/27/22 sublingual tablet naloxone 4 mg/actuation nasal spray 4 mg intranasal 02/27/22 02/27/22 Previous Rx's Medication Instructions Recorded albuterol sulfate 90 mcg/actuation 2 puff inhalation Q6H PRN 12/02/21 aerosol inhaler (Ventolin HFA) shortness of breath or wheezing #18 grams bupropion HCl 75 mg tablet 75 mg PO BID #60 tabs 12/02/21 duloxetine 60 mg capsule,delayed 60 mg P
[2022-03-16 18:39] VITALS: BP 112/74; PULSE 98; RESP 16; TEMP 36.6; O2SAT 98
== END 2022-03-16 17:45 | disposition home or self-care (01) ==
PROVIDERS: Emergency Provider Emergency Medicine; PCP Emergency Medicine
DX: M25.511 Pain in right shoulder (principal)
CPT/HCPCS: 73030; 96372; 99283

== ENCOUNTER → 2022-04-06 14:11 | Outpatient (CLI) | payer MEDICAID, SELFPAY ==
--- NOTE | 2022-04-06 14:11 | MR_ITS ---
FINAL REPORT CLINICAL HISTORY: neck pain. right shoulder pain. symptoms xyears. no recent injury or trauma. intermittent right arm pain, numbness, and tingling, headache. patient had a hard time staying still. repeated scans and sent best images. FINDINGS: Multiplanar MR imaging of the cervical spine was performed without contrast. On the sagittal T2-weighted images, decreased signal seen throughout. There is moderate loss of height at C4-5, C5-6 and C6-7. There is no evidence of fracture. The vertebral alignment is normal. The cervical spinal cord has an unremarkable appearance without evidence of mass, edema or syrinx. The cervicomedullary junction is normal. C2-3: There is no significant canal stenosis or neural foraminal narrowing. C3-4: Moderate diffuse disc bulge with endplate hypertrophy and moderate bilateral neural foraminal narrowing. C4-5: Moderate diffuse disc bulge with endplate hypertrophy. There is moderate central canal stenosis and high-grade bilateral neural foraminal narrowing. C5-6: Moderate diffuse disc bulge with endplate hypertrophy. There is moderate central canal stenosis and high-grade bilateral neural foraminal narrowing. C6-7: Endplate hypertrophy, eccentric to the left with moderate to high-grade left neural foraminal narrowing. C7-T1: There is no significant canal stenosis or neural foraminal narrowing. IMPRESSION: Multilevel degenerative disc disease with disc bulges and endplate hypertrophy most evident at C4-5, C5-6 and C6-7 with high-grade neural foraminal narrowing. Reviewed, Interpreted and Dictated by Kobe Ackerman MD Transcribed by Mora Armendariz Authenticated and [facility]
== END ==
PROVIDERS: PCP Emergency Medicine; Visit Provider Emergency Medicine
DX: M54.2 Cervicalgia (principal)
CPT/HCPCS: 72141; 76376

== ENCOUNTER → 2022-04-15 12:55 | Outpatient (POV) | payer MEDICAID, SELFPAY ==
[2022-04-15 13:10] VITALS: BP 127/88; PULSE 91; RESP 18; TEMP 36.8; O2SAT 99; BMI 19.9
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
== END ==
PROVIDERS: PCP Emergency Medicine; Visit Provider Nurse Practitioner Family
DX: M50.30 Other cervical disc degeneration, unspecified cervical region (principal); M54.16 Radiculopathy, lumbar region; M25.551 Pain in right hip; M79.604 Pain in right leg; M25.511 Pain in right shoulder
CPT/HCPCS: 99202; G0463

== ENCOUNTER → 2022-04-29 10:27 | Outpatient (CLI) | payer MEDICAID, SELFPAY ==
[2022-04-29 18:31] LABS: Barbiturates Screen,Urine Negative ng/ml (<200); Benzodiazepines Screen,Urine Negative ng/ml (<200)
[2022-04-29 18:32] LABS: Cannabinoid Screen,Urine Negative ng/ml (<50)
[2022-04-29 18:33] LABS: Cocaine Screen,Urine Negative ng/ml (<300); Methadone Screen,Urine Negative ng/ml (<300)
[2022-04-29 18:34] LABS: Opiate Screen,Urine Negative ng/ml (<300)
[2022-04-29 18:35] LABS: Phencyclidine Screen,Urine Negative ng/ml (<25)
[2022-04-29 19:48] LABS: Amphetamine/Metha Screen,Urine Positive ng/ml (<1000)
== END ==
PROVIDERS: PCP Emergency Medicine; Visit Provider Emergency Medicine
DX: Z79.899 Other long term (current) drug therapy (principal)
CPT/HCPCS: 80305

== ENCOUNTER → 2022-06-23 11:00 | Outpatient (CLI) | payer MEDICAID, SELFPAY ==
[2022-06-23 15:19] LABS: Amphetamine/Metha Screen,Urine Negative ng/ml (<1000)
[2022-06-23 15:20] LABS: Barbiturates Screen,Urine Negative ng/ml (<200)
[2022-06-23 15:21] LABS: Benzodiazepines Screen,Urine Negative ng/ml (<200); Cannabinoid Screen,Urine Negative ng/ml (<50)
[2022-06-23 15:22] LABS: Cocaine Screen,Urine Negative ng/ml (<300); Methadone Screen,Urine Negative ng/ml (<300)
[2022-06-23 15:23] LABS: Opiate Screen,Urine Negative ng/ml (<300)
[2022-06-23 15:24] LABS: Phencyclidine Screen,Urine Negative ng/ml (<25)
== END ==
PROVIDERS: PCP Emergency Medicine; Visit Provider Emergency Medicine
DX: Z79.899 Other long term (current) drug therapy (principal)
CPT/HCPCS: 80305

== ENCOUNTER → 2022-08-25 23:00 | Outpatient (CLI) | payer BC, SELFPAY ==
[2022-08-26 16:58] LABS: Amphetamine/Metha Screen,Urine Negative ng/ml (<1000); Barbiturates Screen,Urine Negative ng/ml (<200); Benzodiazepines Screen,Urine Negative ng/ml (<200); Cannabinoid Screen,Urine Negative ng/ml (<50); Cocaine Screen,Urine Negative ng/ml (<300); Methadone Screen,Urine Negative ng/ml (<300); Opiate Screen,Urine Negative ng/ml (<300); Phencyclidine Screen,Urine Negative ng/ml (<25)
== END ==
PROVIDERS: PCP Emergency Medicine; Visit Provider Emergency Medicine
DX: Z79.899 Other long term (current) drug therapy (principal)
CPT/HCPCS: 80305

== ENCOUNTER → 2022-09-04 15:37 | Outpatient (CLI) | payer BC, SELFPAY ==
[2022-09-07 09:18] LABS: Amphetamine/Metha Screen,Urine Negative ng/ml (<1000); Barbiturates Screen,Urine Negative ng/ml (<200)
[2022-09-07 09:19] LABS: Benzodiazepines Screen,Urine Negative ng/ml (<200)
[2022-09-07 09:20] LABS: Cocaine Screen,Urine Negative ng/ml (<300)
[2022-09-07 09:21] LABS: Methadone Screen,Urine Negative ng/ml (<300)
[2022-09-07 09:22] LABS: Cannabinoid Screen,Urine Negative ng/ml (<50); Opiate Screen,Urine Negative ng/ml (<300)
[2022-09-07 09:23] LABS: Phencyclidine Screen,Urine Negative ng/ml (<25)
== END ==
PROVIDERS: PCP Emergency Medicine; Visit Provider Emergency Medicine
DX: Z79.899 Other long term (current) drug therapy (principal)
CPT/HCPCS: 80305

== ENCOUNTER → 2022-10-21 23:34 | Outpatient (CLI) | payer BC, SELFPAY ==
[2022-10-21 19:56] LABS: Amphetamine/Metha Screen,Urine Negative ng/ml (<1000)
[2022-10-21 19:57] LABS: Barbiturates Screen,Urine Negative ng/ml (<200); Benzodiazepines Screen,Urine Negative ng/ml (<200)
[2022-10-21 19:58] LABS: Cannabinoid Screen,Urine Negative ng/ml (<50)
[2022-10-21 19:59] LABS: Cocaine Screen,Urine Negative ng/ml (<300); Methadone Screen,Urine Negative ng/ml (<300)
[2022-10-21 20:00] LABS: Opiate Screen,Urine Negative ng/ml (<300)
[2022-10-21 20:01] LABS: Phencyclidine Screen,Urine Negative ng/ml (<25)
== END ==
PROVIDERS: PCP Emergency Medicine; Visit Provider Emergency Medicine
DX: F90.9 Attention-deficit hyperactivity disorder, unspecified type (principal)
CPT/HCPCS: 80305

== ENCOUNTER 2022-12-04 17:03 | Emergency (ER) | payer BC, SELFPAY ==
--- NOTE | 2022-12-04 17:03 | ECG_ITS ---
APPROVED REPORT Exam: Resting ECG HR:85 bpm ECG Measurements Heart Rate 85 AXES SC 165 P 55 QRSd 90 QRS 21 QT 371 T 77 QTc 413 Conclusion SINUS RHYTHM NORMAL ECG UNCONFIRMED REPORT Electronically signed by : Teddy Collier MD 12/05/2022 07:44:25
[2022-12-04 17:07] VITALS: BP 112/71; PULSE 88; RESP 17; TEMP 37; O2SAT 97; BMI 19.2
--- NOTE | 2022-12-04 17:21 | HMH.EDGENADL ---
Discharge Plan Disposition Patient Disposition: Home, Self-Care Prescriptions Prescriptions: New doxycycline hyclate 100 mg capsule 100 mg PO BID 10 Days Qty: 20 0RF prednisone 20 mg tablet 60 mg PO DAILY 7 Days Qty: 21 0RF albuterol sulfate 90 mcg/actuation HFA aerosol inhaler 4 inh inhalation Q4H PRN (Reason: shortness of breath or wheezing) Qty: 8.5 0RF Rx Instructions: 4 puffs every 4 hours for 48 hours then as needed for shortness of breath or wheezing following No Action naloxone 4 mg/actuation spray,non-aerosol 4 mg NS NEEDED PRN (Reason: N/A) diclofenac sodium 1 % gel See Rx Instructions .ROUTE .COMPLEX Qty: 100 0RF Dose Instruction: APPLY 2 GRAMS TOPICALLY TO SINGLE ELBOW, WRIST OR HAND; HAND INCLUDES PALM/FINGERS/BACK OF HAND ONCE A DAY Rx Instructions: APPLY 2 GRAMS TOPICALLY TO SINGLE ELBOW, WRIST OR HAND; HAND INCLUDES PALM/FINGERS/BACK OF HAND ONCE A DAY gabapentin 600 mg tablet 600 mg PO QID Qty: 120 1RF acetaminophen-codeine 300-30 mg tablet 1 tab PO BID Qty: 20 0RF fluticasone propionate [Flonase Allergy Relief] 50 mcg/actuation spray,suspension 1 spray intranasal DAILY Qty: 16 2RF Rx Instructions: administer into each nostril dextroamphetamine-amphetamine [Adderall] 20 mg tablet 20 mg PO BID Qty: 60 0RF Rx Instructions: administer doses at least 4-6 hours apart topiramate 100 mg tablet 100 mg PO BID 90 Days Qty: 180 0RF lidocaine 5 % adhesive patch,medicated See Rx Instructions .ROUTE .COMPLEX Qty: 30 1RF Dose Instruction: APPLY 1 PATCH TOPICALLY TO THE SKIN DAILY. LEAVE ON MOST PAINFUL AREA FOR UP TO 12 HOURS THEN REMOVE FOR 12 HOURS Rx Instructions: APPLY 1 PATCH TOPICALLY TO THE SKIN DAILY. LEAVE ON MOST PAINFUL AREA FOR UP TO 12 HOURS THEN REMOVE FOR 12 HOURS ibuprofen 600 mg tablet See Rx Instructions .ROUTE .COMPLEX Qty: 60 0RF Dose Instruction: TAKE ONE TABLET BY MOUTH 2 TIMES A DAY NEEDED FOR PAIN Rx Instructions: TAKE ONE TABLET BY MOUTH 2 TIMES A DAY NEEDED FOR PAIN ondansetron 8 mg tablet,disintegrating See Rx Instructions .ROUTE .COMPLEX Qty: 30 1RF Dose Instruction: DISSOLVE 1 TABLET ON THE TONGUE EVERY 12 HOURS NEEDED FOR NAUSEA OR VOMITING Rx Instructions: DISSOLVE 1 TABLET ON THE TONGUE EVERY 12 HOURS NEEDED FOR NAUSEA OR VOMITING buspirone 10 mg tablet See Rx Instructions .ROUTE .COMPLEX Qty: 90 1RF Dose Instruction: TAKE ONE TABLET BY MOUTH 3 TIMES A DAY Rx Instructions: TAKE ONE TABLET BY MOUTH 3 TIMES A DAY loratadine 10 mg tablet See Rx Instructions .ROUTE .COMPLEX Qty: 30 1RF Dose Instruction: TAKE ONE TABLET BY MOUTH ONCE A DAY FOR ALLERGIES Rx Instructions: TAKE ONE TABLET BY MOUTH ONCE A DAY FOR ALLERGIES levothyroxine 125 mcg tablet See Rx Instructions .ROUTE .COMPLEX Qty: 30 1RF Dose Instruction: TAKE 1 TABLET BY MOUTH DAILY FOR THYROID Rx Instructions: TAKE 1 TABLET BY MOUTH DAILY FOR THYROID bupropion HCl 75 mg tablet See Rx Instructions .ROUTE .COMPLEX Qty: 60 1RF Dose Instruction: TAKE ONE TABLET BY MOUTH 2 TIMES A DAY FOR MOOD Rx Instructions: TAKE ONE TABLET BY MOUTH 2 TIMES A DAY FOR MOOD albuterol sulfate 90 mcg/actuation HFA aerosol inhaler See Rx Instructions .ROUTE .COMPLEX Qty: 18 1RF Dose Instruction: INHALE 2 PUFFS BY MOUTH EVERY6 HOURS NEEDED FOR SHORTNESS OF BREATH OR WHEEZING Rx Instructions: INHALE 2 PUFFS BY MOUTH EVERY6 HOURS NEEDED FOR SHORTNESS OF BREATH OR WHEEZING nystatin 100,000 unit/gram cream See Rx Instructions .ROUTE .COMPLEX Qty: 30 1RF Dose Instruction: APPLY TOPICALLY TO AFFECTED AREA(S) 2 TIMES A DAY FOR 10 DAYS Rx Instructions: APPLY TOPICALLY TO AFFECTED AREA(S) 2 TIMES A DAY FOR 10 DAYS duloxetine [Cymbalta] 60 mg capsule,delayed release(DR/EC) 60 mg PO DAILY flu
--- NOTE | 2022-12-04 17:23 | PC.NURSE ---
Dr. Conde at BS
--- NOTE | 2022-12-04 17:25 | XR_ITS ---
PROCEDURE INFORMATION: Exam: XR Chest Exam date and time: 12/04/2022 5:36 PM Age: 62 years old Clinical indication: Shortness of breath; Additional info: Dyspnea TECHNIQUE: Imaging protocol: Radiologic exam of the chest. Views: 1 view. COMPARISON: 1. CR XR CHEST 2V and CT 2. 10/30/2021 8:17 PM FINDINGS: Lungs: Interval development of left basilar and retrocardiac opacities and associated volume loss with elevation left hemidiaphragm. Lungs otherwise clear. Pleural spaces: Unremarkable. No pleural effusion. No pneumothorax. Heart/Mediastinum: Unremarkable. No cardiomegaly. Bones/joints: Unremarkable. IMPRESSION: 1. Left basilar opacities with associated elevation left hemidiaphragm suggesting volume loss. Findings may reflect a combination of pneumonic infiltrates and atelectasis.. The possibility of a occult central obstructing mass or lesion can not be totally excluded on this single view portable chest. 2. If clinical findings are consistent with infection then follow-up chest x-ray in 4-6 weeks advised to ensure improvement with continued follow-up until completely resolved. If clinical findings are not consistent with infection then CT scan of the chest with contrast at the current time to assess for possible occult obstructing mass or lesion should be considered.
[2022-12-04 17:30] VITALS: BP 109/65; PULSE 85; O2SAT 97
[2022-12-04 17:40] LABS: Coronavirus 19, PCR Not Detected (NotDetected); Influenza A, PCR Not Detected (NotDetected); Influenza B, PCR Not Detected (NotDetected)
[2022-12-04 17:44] LABS: Basophils % 0.3 % (0.1-2.0); Chloride 92 mmol/L (98-107); Eosinophils # 0.1 K/mm3 (0.0-0.4); Eosinophils % 1.9 % (0.1-12.0); Hematocrit 39.1 % (37.0-47.0); Hemoglobin 13.2 g/dL (12.2-16.2); Lymphocytes # 1.1 K/mm3 (0.7-4.5); Lymphocytes % 15.7 % (10-50); Mean Corpuscular HGB Conc 33.8 g/dL (31.8-35.4); Mean Corpuscular Hemoglobin 31.7 pg (27.0-31.2); Mean Corpuscular Volume 93.8 fl (81-99); Mean Platelet Volume 8.5 fl (7.4-10.4); Monocytes # 0.5 K/mm3 (0.1-1.0); Monocytes % 6.6 % (1.7-9.3); Neutrophils # 5.2 K/mm3 (1.8-7.8); Neutrophils % 75.6 % (37.0-80.0); Platelet Count 168 K/mm3 (142-424); Red Blood Count 4.17 M/mm3 (4.20-5.40); Red Cell Distribution Width 13.3 % (11.5-17.5); Sodium 132 mmol/L (136-145); White Blood Count 6.8 K/mm3 (4.8-10.8)
[2022-12-04 17:46] LABS: Alanine Aminotransferase 24 U/L (12-78); Aspartate Amino Transferase 30 U/L (14-36); Blood Urea Nitrogen 10 mg/dl (7-17); Creatinine Clearance Estimated 54 mL/min (50-200); Estimated Glomerular Filt Rate 101 ml/min (>60); GFR (African American) 123 ML/MIN (>60)
[2022-12-04 17:47] LABS: Albumin Level 4.1 g/dl (3.5-5.0); Albumin/Globulin Ratio 1.3 (1.1-1.8); Alkaline Phosphatase 64 U/L (38-126); Bilirubin,Total 0.5 mg/dl (0.2-1.3); Calcium 9.1 mg/dl (8.4-10.2); Carbon Dioxide 29 mmol/L (22.0-30.0); Globulin 3.1 g/dL (1.3-3.2); Glucose 89 mg/dl (74-100); Total Protein,Serum 7.2 g/dl (6.3-8.2)
[2022-12-04 18:00] VITALS: BP 117/78; PULSE 81; O2SAT 99
[2022-12-04 18:01] LABS: Troponin I < 0.01 ng/ml (0.00-0.034)
[2022-12-04 18:49] VITALS: BP 117/78; PULSE 81; RESP 16; TEMP 36.6
== END 2022-12-04 18:53 | disposition home or self-care (01) ==
PROVIDERS: Emergency Provider Student in an Organized Health Care Education/Training Program; PCP Emergency Medicine
DX: J44.1 Chronic obstructive pulmonary disease with (acute) exacerbation (principal); R07.89 Other chest pain; R50.9 Fever, unspecified
CPT/HCPCS: 71045; 80053; 84484; 85025; 87635; 87636; 93005; 96361; 96374; 99285; C9803; U0003; U0005

== ENCOUNTER → 2023-01-05 08:28 | Outpatient (CLI) | payer BC, SELFPAY ==
--- NOTE | 2023-01-05 08:38 | CA_ITS ---
FINAL REPORT TECHNIQUE: Multiple transverse and longitudinal images were performed of right the femoral-popliteal deep venous system with augmentation and compression maneuvers. CLINICAL HISTORY: RLE edema, erythema, ASA 81mg FINDINGS: Right lower extremity duplex ultrasound demonstrates normal flow in the deep venous system. There is no abnormal echogenicity to suggest thrombus. There is normal compression and augmentation. IMPRESSION: No evidence of right lower extremity DVT. Reviewed, Interpreted and Dictated by Kobe Ackerman MD Transcribed by Nj Epperson Authenticated and [facility]
== END ==
PROVIDERS: PCP Emergency Medicine; Visit Provider Student in an Organized Health Care Education/Training Program
DX: L53.9 Erythematous condition, unspecified (principal); R60.0 Localized edema
CPT/HCPCS: 93971

== ENCOUNTER → 2023-03-24 12:00 | Outpatient (CLI) | payer BC, SELFPAY ==
[2023-03-24 20:18] LABS: Amphetamine/Metha Screen,Urine Positive ng/ml (<1000)
[2023-03-24 20:20] LABS: Barbiturates Screen,Urine Negative ng/ml (<200); Cannabinoid Screen,Urine Negative ng/ml (<50)
[2023-03-24 20:21] LABS: Benzodiazepines Screen,Urine Negative ng/ml (<200)
[2023-03-24 20:22] LABS: Opiate Screen,Urine Negative ng/ml (<300)
[2023-03-24 20:23] LABS: Cocaine Screen,Urine Negative ng/ml (<300)
[2023-03-24 20:24] LABS: Methadone Screen,Urine Negative ng/ml (<300)
[2023-03-24 20:25] LABS: Phencyclidine Screen,Urine Negative ng/ml (<25)
== END ==
PROVIDERS: PCP Emergency Medicine; Visit Provider Emergency Medicine
DX: Z79.899 Other long term (current) drug therapy (principal)
CPT/HCPCS: 80305

== ENCOUNTER → 2023-04-01 15:05 | Outpatient (CLI) | payer BC, SELFPAY | PROVIDERS: PCP Emergency Medicine | DX: J44.9 Chronic obstructive pulmonary disease, unspecified (principal); R06.02 Shortness of breath | CPT/HCPCS: 94060; 94618; 94726; 94729 ==

== ENCOUNTER → 2023-04-01 15:58 | Outpatient (CLI) | payer BC, SELFPAY ==
[2023-04-01 14:27] LABS: Amphetamine/Metha Screen,Urine Negative ng/ml (<1000); Barbiturates Screen,Urine Negative ng/ml (<200)
[2023-04-01 14:28] LABS: Benzodiazepines Screen,Urine Negative ng/ml (<200)
[2023-04-01 14:29] LABS: Cannabinoid Screen,Urine Negative ng/ml (<50)
[2023-04-01 14:30] LABS: Cocaine Screen,Urine Negative ng/ml (<300)
[2023-04-01 14:31] LABS: Methadone Screen,Urine Negative ng/ml (<300)
[2023-04-01 14:32] LABS: Opiate Screen,Urine Negative ng/ml (<300)
[2023-04-01 14:34] LABS: Phencyclidine Screen,Urine Negative ng/ml (<25)
== END ==
PROVIDERS: PCP Emergency Medicine; Visit Provider Emergency Medicine
DX: M54.16 Radiculopathy, lumbar region (principal)
CPT/HCPCS: 80305

== ENCOUNTER → 2023-05-05 23:11 | Outpatient (CLI) | payer BC, SELFPAY ==
[2023-05-05 21:00] LABS: Barbiturates Screen,Urine Negative ng/ml (<200)
[2023-05-05 21:01] LABS: Amphetamine/Metha Screen,Urine Negative ng/ml (<1000)
[2023-05-05 21:02] LABS: Benzodiazepines Screen,Urine Negative ng/ml (<200); Cannabinoid Screen,Urine Negative ng/ml (<50)
[2023-05-05 21:07] LABS: Methadone Screen,Urine Negative ng/ml (<300)
[2023-05-05 21:08] LABS: Cocaine Screen,Urine Negative ng/ml (<300)
[2023-05-05 21:09] LABS: Opiate Screen,Urine Negative ng/ml (<300); Phencyclidine Screen,Urine Negative ng/ml (<25)
== END ==
PROVIDERS: PCP Emergency Medicine; Visit Provider Emergency Medicine
DX: Z79.899 Other long term (current) drug therapy (principal)
CPT/HCPCS: 80305

== ENCOUNTER → 2023-06-02 08:36 | Outpatient (CLI) | payer BC, SELFPAY ==
[2023-06-02 23:49] LABS: Amphetamine/Metha Screen,Urine Positive ng/ml (<1000)
[2023-06-02 23:50] LABS: Barbiturates Screen,Urine Negative ng/ml (<200); Benzodiazepines Screen,Urine Negative ng/ml (<200)
[2023-06-02 23:51] LABS: Cannabinoid Screen,Urine Negative ng/ml (<50)
[2023-06-02 23:52] LABS: Cocaine Screen,Urine Negative ng/ml (<300)
[2023-06-02 23:53] LABS: Opiate Screen,Urine Negative ng/ml (<300); Phencyclidine Screen,Urine Negative ng/ml (<25)
[2023-06-03 00:06] LABS: Methadone Screen,Urine Negative ng/ml (<300)
== END ==
PROVIDERS: PCP Emergency Medicine; Visit Provider Emergency Medicine
DX: Z79.899 Other long term (current) drug therapy (principal)
CPT/HCPCS: 80305

== ENCOUNTER 2023-07-27 18:34 | Outpatient (CLI) | payer BC, SELFPAY ==
[2023-07-27 20:10] LABS: Barbiturates Screen,Urine Negative ng/ml (<200); Benzodiazepines Screen,Urine Negative ng/ml (<200); Cannabinoid Screen,Urine Negative ng/ml (<50); Cocaine Screen,Urine Negative ng/ml (<300); Methadone Screen,Urine Negative ng/ml (<300); Opiate Screen,Urine Negative ng/ml (<300); Phencyclidine Screen,Urine Negative ng/ml (<25)
[2023-07-28 15:13] LABS: Amphetamine/Metha Screen,Urine Positive ng/ml (<1000)
[2023-07-31 08:44] LABS: Amphetamine Positive (.); Amphetamine (GC/MS) >3000 ng/mL (Cutoff=500); Amphetamines Positive (.); Methamphetamine Negative (Cutoff=500)
[2023-08-01 19:25] LABS: Gabapentin,Urine 54.8 ug/mL (.)
== END 2023-07-27 23:59 ==
LOC: LAB.DROPOF 18:35
PROVIDERS: PCP Nurse Practitioner Family; Visit Provider Nurse Practitioner Family
DX: F41.9 Anxiety disorder, unspecified (principal); Z79.899 Other long term (current) drug therapy
CPT/HCPCS: 80307; 80324

== ENCOUNTER 2023-10-05 20:34 | Outpatient (CLI) | payer BC, SELFPAY ==
[2023-10-05 21:00] LABS: Basophils % 1.1 % (0.1-2.0); Eosinophils # 0.3 K/mm3 (0.0-0.4); Eosinophils % 6.2 % (0.1-12.0); Hematocrit 42.6 % (37.0-47.0); Hemoglobin 13.6 g/dL (12.2-16.2); Lymphocytes # 1.5 K/mm3 (0.7-4.5); Lymphocytes % 37.4 % (10-50); Mean Corpuscular Volume 96.9 fl (81-99); Mean Platelet Volume 9.6 fl (7.4-10.4); Monocytes # 0.3 K/mm3 (0.1-1.0); Monocytes % 7.1 % (1.7-9.3); Neutrophils # 1.9 K/mm3 (1.8-7.8); Neutrophils % 48.2 % (37.0-80.0); Platelet Count 221 K/mm3 (142-424); Red Cell Distribution Width 13.6 % (11.5-17.5)
[2023-10-05 21:09] LABS: Albumin Level 4.4 g/dl (3.5-5.0); Albumin/Globulin Ratio 1.8 (1.1-1.8); Blood Urea Nitrogen 10 mg/dl (7-17); Calcium 9.3 mg/dl (8.4-10.2); Chloride 102 mmol/L (98-107); Estimated Glomerular Filt Rate 101 ml/min (>60); GFR (African American) 122 ML/MIN (>60); Globulin 2.5 g/dL (1.3-3.2); Glucose 110 mg/dl (74-100); HDL Cholesterol 70 mg/dl (40-60); Potassium 3.7 mmoL/L (3.5-5.1); Sodium 138 mmol/L (136-145); Total Protein,Serum 6.9 g/dl (6.3-8.2)
[2023-10-05 21:11] LABS: Alanine Aminotransferase 43 U/L (12-78); Alkaline Phosphatase 61 U/L (38-126); Anion Gap 12.7 mEq/L (5-15); Aspartate Amino Transferase 43 U/L (14-36); Bilirubin,Total 0.2 mg/dl (0.2-1.3); Carbon Dioxide 27 mmol/L (22.0-30.0); Chol/HDL Ratio 2.7 (1-3.5); Cholesterol 186 mg/dl (140-200); Triglycerides 65 mg/dl (30-150); VLDL Cholesterol 13 mg/dL (0-40)
[2023-10-05 21:26] LABS: 25-OH Vitamin D, Total 22.7 ng/mL (30-100)
[2023-10-05 21:38] LABS: Hemoglobin A1C 5.7 % (4.0-6.0)
[2023-10-05 21:39] LABS: Thyroid Stimulating Hormone < 0.02 uIU/mL (0.465-4.68)
== END 2023-10-05 23:59 ==
PROVIDERS: PCP Internal Medicine; Visit Provider Internal Medicine
DX: R53.83 Other fatigue (principal); G47.30 Sleep apnea, unspecified; Z79.899 Other long term (current) drug therapy; E03.9 Hypothyroidism, unspecified; J44.9 Chronic obstructive pulmonary disease, unspecified
CPT/HCPCS: 80053; 80061; 82306; 83036; 84443; 85025

== ENCOUNTER 2023-11-30 18:59 | Emergency (ER) | payer BC, SELFPAY ==
[2023-11-30 19:20] VITALS: BP 129/81; PULSE 91; RESP 19; TEMP 37.2; O2SAT 99; BMI 22.4
[2023-11-30 19:48] LABS: UTC Strep Screen (Rapid) Negative (Negative)
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
[2023-11-30 20:09] VITALS: BP 129/81; PULSE 91; RESP 18; TEMP 37.2; O2SAT 99
== END 2023-11-30 20:09 | disposition home or self-care (01) ==
PROVIDERS: Emergency Provider Nurse Practitioner Family; PCP Internal Medicine
DX: J44.1 Chronic obstructive pulmonary disease with (acute) exacerbation (principal); J02.9 Acute pharyngitis, unspecified; R51.9 Headache, unspecified; R11.0 Nausea; R09.81 Nasal congestion; R53.83 Other fatigue; F17.210 Nicotine dependence, cigarettes, uncomplicated
CPT/HCPCS: 87880; 99212; 99214; G0463

== ENCOUNTER 2023-12-26 03:42 | Emergency (ER) | payer BC, SELFPAY ==
[2023-12-26 03:42] VITALS: BP 131/94; PULSE 88; RESP 18; TEMP 36.5; O2SAT 98; BMI 19.5
--- NOTE | 2023-12-26 03:55 | PC.NURSE ---
Pt has no medical concerns with the exception of right shoulder pain from injury that required surgery on her bicep tendon. Hand cuffs are currently in position behind her back, asked officer to reposition them to the front to see if pain subsides.
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
[2023-12-26] MEDS: ACETAMINOPHEN 500MG TAB 1000 MG PO (04:01)
[2023-12-26 04:02] VITALS: BP 131/94; PULSE 84; RESP 16; TEMP 36.5; O2SAT 98
== END 2023-12-26 04:06 ==
PROVIDERS: Emergency Provider Emergency Medicine
DX: M25.511 Pain in right shoulder (principal); F17.210 Nicotine dependence, cigarettes, uncomplicated
CPT/HCPCS: 99283

== ENCOUNTER 2024-01-25 15:00 | Outpatient (CLI) | payer BC, SELFPAY ==
[2024-01-25 19:43] LABS: Thyroid Stimulating Hormone 7.64 uIU/mL (0.465-4.68)
== END 2024-01-25 23:59 | disposition home or self-care (01) ==
LOC: LAB.DROPOF 01-26 10:48
PROVIDERS: PCP Internal Medicine; Visit Provider Internal Medicine
DX: R53.83 Other fatigue (principal)
CPT/HCPCS: 84443

== ENCOUNTER 2024-10-01 04:40 | Emergency (ER) | payer MEDICAID, SELFPAY ==
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
[2024-10-01 04:50] VITALS: BP 119/84; PULSE 80; RESP 16; TEMP 36.6; O2SAT 98; BMI 22.1
[2024-10-01] MEDS: BELLADONNA ALKALOIDS 60 ML ML PO (04:58)
[2024-10-01] MEDS: ONDANSETRON 4MG ODT 4 MG SL (04:59)
[2024-10-01 05:14] VITALS: PULSE 69; PULSE 74
[2024-10-01] MEDS: IPRATROPIUM/ALBUTEROL 3 ML NEB IH (05:14)
[2024-10-01 05:30] VITALS: BP 90/57; PULSE 75; O2SAT 93
[2024-10-01 05:36] LABS: Coronavirus 19, PCR Not Detected (NotDetected); Influenza A, PCR Not Detected (NotDetected); Influenza B, PCR Not Detected (NotDetected)
[2024-10-01] MEDS: OXYMETAZOLINE NASAL SPRAY 0.05% 15ML NS (06:31)
[2024-10-01] MEDS: SODIUM CHLORIDE 0.9% 3ML NEB SOLN 3 ML IH (06:32)
[2024-10-01 06:34] VITALS: BP 101/64; PULSE 76; RESP 18; TEMP 36.7; O2SAT 95
== END 2024-10-01 06:36 | disposition home or self-care (01) ==
PROVIDERS: Emergency Provider Emergency Medicine; PCP Internal Medicine
DX: R11.2 Nausea with vomiting, unspecified (principal)
CPT/HCPCS: 87636; 99283; J7620; Q0162

== ENCOUNTER 2025-01-05 13:00 | Emergency (ER) | payer MEDICAID, SELFPAY ==
--- NOTE | 2025-01-05 13:07 | ECG_ITS ---
APPROVED REPORT Exam: Resting ECG HR:98 bpm ECG Measurements Heart Rate 98 AXES MI 153 P 43 QRSd 90 QRS -7 QT 365 T 43 QTc 420 Conclusion SINUS RHYTHM NORMAL ECG UNCONFIRMED REPORT Electronically signed by : Bessy Alexander, 01/05/2025 15:39:28
--- OUTSIDE RECORDS SUMMARY | 2025-01-05 13:07 | XMS_ITS | Encounter Summary ---
Author Organization [employer] Address [address] [place] [id number] Care Team Providers Care Laundry Operator Finishing Name Role Phone Unavailable Primary Care Provider Unavailabl e Encounter Details Date Type Department Care Team (Late st Contact Info) Description 04/18/2021 Transcribed Document [facility] [place] [address] [place] [address] ProviderKentrell MD [address] [place] [address] Social History Tobacco Use Types Packs/Day Years Used Date Smoking Tobacco: Never Assessed Comments Unknown Sex and Gender Information Value Date Recorded Sex Assigned at Female 01/13/2022 1:46 PM CDT Legal Sex Female 1:46 PM CDT Gender Identity Female 01/13/2022 1:46 PM CDT Sexual Orientation Not on file documented as of this encounter Miscellaneous Notes * Cerner Conversion Note - Historical ProviderMD - 04/18/2021 8:57 PM CDT Broset Violence Assessment Entered On: 04/18/2021 21:51 EDT Performed On: 04/18/2021 21:49 EDT by DIXON CARDENAS RN Broset Violence Assessment Broset Violence Checklist of Symptoms : None Broset Violence Symptoms Subtotal : 0 Broset Violence Symptoms Indicator : Low risk (0) DIXON CARDENAS RN - 04/18/2021 21:49 EDT documented in this encounter Plan of Treatment Not on file documented as of this encounter Visit Diagnoses Not on filedocumented in this encounter
--- OUTSIDE RECORDS SUMMARY | 2025-01-05 13:07 | XMS_ITS | Encounter Summary ---
Author Organization [employer] Address [address] [place] [address] Care Team Providers Care Fire Tower Keeper Name Role Phone Unavailable Primary Care Provider Unavailabl e Encounter Details Date Type Department Care Team (Late st Contact Info) Description 06/20/2021 Transcribed Document [facility] [place] [facility] [place] [address] ProviderKentrell MD [facility] [place] [id number] Social History Tobacco Use Types Packs/Day Years Used Date Smoking Tobacco: Never Assessed Comments Unknown Sex and Gender Information Value Date Recorded Sex Assigned at Female 01/13/2022 1:46 PM CDT Legal Sex Female 1:46 PM CDT Gender Identity Female 01/13/2022 1:46 PM CDT Sexual Orientation Not on file documented as of this encounter Miscellaneous Notes * Cerner Conversion Note - Historical ProviderMD - 06/20/2021 10:45 PM [facility] ED Discharge Entered On: 06/20/2021 22:51 EST Performed On: 06/20/2021 22:45 EST by PENNY MICHELE RN Discharge Process Patient Disposition : Discharge Personal Belongings With Patient : Yes Patient Education Completed : Yes Teaching Evaluation : Verbalizes understanding Link to Valuables and Belongings form : No IV Discontinued : Not applicable Nursing Documentation Completed : Yes PENNY MICHELE RN - 06/20/2021 22:49 EST ED Discharge Discharge To : Home with ambulatory/outpatient follow-up Mode Of Departure : Ambulatory Accompanied By : Responsible adult Discharge Instructions Reviewed With, Opportunity For Questions Given : Patient Prescriptions Given to Patient : Electronically sent PENNY MICHELE RN - 06/20/2021 22:49 EST documented in this encounter Plan of Treatment Not on file documented as of this encounter Visit Diagnoses Not on filedocumented in this encounter
--- OUTSIDE RECORDS SUMMARY | 2025-01-05 13:07 | XMS_ITS | Encounter Summary ---
Author Organization [employer] Address [address] [place] [address] Care Team Providers Care Casino Operations Supervisor Name Role Phone Unavailable Primary Care Provider Unavailabl e Encounter Details Date Type Department Care Team (Late st Contact Info) Description 04/18/2021 Transcribed Document [facility] [place] [facility] [place] [address] ProviderKentrell MD [address] [id number] Social History Tobacco Use Types Packs/Day Years [...] Historical ProviderMD - 04/18/2021 8:57 PM CDT ED Assessment Entered On: 04/18/2021 21:51 EDT Performed On: 04/18/2021 21:49 EDT by DIXON CARDENAS RN ED Quick Look Assessment Level of Consciousness : Alert, Awake Affect/Behavior : Appropriate, Calm, Cooperative Orientation : Oriented x 4 Skin Temperature : Warm Skin Description : Normal for ethnicity, Dry DIXON CARDENAS RN - 04/18/2021 21:49 EDT ED General-Functional Assess Information Obtained From : Patient Communication Barrier : None Primary Language : Moroccan Any Spiritual/Cultural Needs or Requests : No Currently in Unsafe Situation : No DIXON CARDENAS RN - 04/18/2021 21:49 EDT Social Habits Smoking Status : 10 or more cigarettes (1/2 pack or more)/day in last 30 days Smokeless Tobacco Status : Never Desires Tobacco Cessation Medication : No Reason for No Tobacco Cessation Medication : ED/procedural patient only Desires Tobacco Cessation Calc : 1 DIXON CARDENAS RN - 04/18/2021 21:49 EDT Social History (As Of: 04/18/2021 21:51:29 EDT) Tobacco: Smoking Status Current every day smoker. (Last Updated: 09/26/2016 16:47:35 EST by JESSICA AGUILAR PA) Alcohol: Alcohol Use History Yes. Use in Last 12 Months: Yes. Alcohol Use Frequency Rarely. (Last Updated: 04/18/2021 21:09:21 EDT by INGRIS CARVER RN) Substance Abuse: Drug Use Hx: No. Use in Last 12 Months: No. (Last Updated: 04/18/2021 21:10:24 EDT by INGRIS CARVER RN) Home/Environment: Living situation: Home/Independent. (Last Updated: 09/26/2016 16:47:40 EST by JESSCIA AGUILAR PA) Cardiovascular ASMT, ED Cardiovascular Assessment WDL : WDL with exceptions (Comment: pt. stated COVID + dx on 04/15/2021. stated for last few weeks hasnt been able to take previously prescribed medications due to being out of medications and having no PCP. currently c/o fatigue, lethargy, headache, chills, SOA with exertion. [DIXON CARDENAS RN - 04/18/2021 21:49 EDT] ) Cardiovascular Symptoms : Dyspnea with activity, Fatigue at rest, Fatigue with activity Heart Rhythm : Regular Nail Bed Color : Alvan Chest Pain : No DIXON CARDENAS RN - 04/18/2021 21:49 EDT Pulses Grid Brachial Pulse, Left : 2+ normal Brachial Pulse, Right : 2+ normal Carotid Pulse, Left : 2+ normal Carotid Pulse, Right : 2+ normal Radial Pulse, Left : 2+ normal Radial Pulse, Right : 2+ normal DIXON CARDENAS RN - 04/18/2021 21:49 EDT Capillary Refill, Left Hand : Less than/Equal to (</=) 2 seconds Capillary Refill, Right Hand : Less than/Equal to (</=) 2 seconds Clubbing Present : No Heart Sounds : S1/S2 PETTELL, DIXON P, RN - 04/18/2021 21:49 EDT Respiratory Breath Sounds Auscultated : Posterior, Anterior Respiratory Assessment WDL : WDL with exceptions (Comment: COVID + dx on 04/15/2021 [DIXON CARDENAS RN - 04/18/2021 21:49 EDT] ) Cough : None DIXON CARDENAS RN - 04/18/2021 21:49 EDT Breath Sounds Assessment Grid All Lobes Breath Sounds : Clear KRAIG : Clear LLL : Clear RUL : Clear RML : Clear RLL : Clear DIXON CARDENAS RN - 04/18/2021 21:49 EDT Respiratory Pattern Description : Regular DIXON CARDENAS RN - 04/18/2021 21:49 EDT Oxygen Therapy Oxygen Therapy Mode : Room air DIXON CARDENAS RN - 04/18/2021 21:49 EDT Neurologic ASMT, ED Neurologic Assessment WDL : WDL DIXON CARDENAS RN - 04/18/2021 21:49 EDT documented in this encounter Plan of Treatment Not on file documented as of this encounter Visit Diagnoses Not on filedocumented in this encounter
--- OUTSIDE RECORDS SUMMARY | 2025-01-05 13:07 | XMS_ITS | Encounter Summary ---
Author Organization [employer] Address [address] [place] [id number] Care Team Providers Care Console Manager Name Role Phone Unavailable Primary Care Provider Unavailabl e Encounter Details Date Type Department Care Team (Late st Contact Info) Description 04/18/2021 Transcribed Document [facility] Family Medicine [facility] [place] [address] ProviderKentrell MD [address], [place] [id number] Social History Tobacco Use Types Packs/Day Years [...] ProviderMD - 04/18/2021 8:57 PM CDT ED Triage Entered On: 04/18/2021 21:09 EDT Performed On: 04/18/2021 21:04 EDT by INGRIS CARVER RN ED Triage Across the Room Chief Complaint : c/o ran out of her medications (thyroid meds and the rest); states she switched PMD. also c/o SOA since yesterday- dx with Covid19 this past Wednesday- thinks it was a false positive. Triage Date/Time : 04/18/2021 21:04 EDT INGRIS CARVER RN - 04/18/2021 21:04 EDT DCP GENERIC CODE Tracking Acuity : 3 - Urgent Tracking Group : [facility] [place] INGRIS CARVER RN - 04/18/2021 21:04 EDT Mode of Arrival : Ambulatory Transported to ED by : Private vehicle To Room Via : Ambulate Accompanied By : Significant other ED Vital Signs : Document Height & Weight : Document ED Allergies : Document ED Reason for Visit : Document INGRIS CARVER RN - 04/18/2021 21:04 EDT Infectious Disease History Does patient have symptoms of COVID-19? : No Has the Patient Been Tested for COVID-19 in the last 14 days? : Yes, Patient stated results Positive Where and When was COVID19 testing completed? : this past Wednesday Does the Patient state known exposure to a COVID-19 positive case in the last 14 days? : Yes, under quarantine Patient Vaccinated for COVID-19 : Fully vaccinated INGRIS CARVER RN - 04/18/2021 21:04 EDT Infectious Disease Risk Screening Grid Cough < 2 wks of unknown origin : NO Cough > 2 weeks : NO Blood in Sputum : NO Fever or self-reported Fever : NO Rash of unknown origin : NO Headache : NO Stiff neck : NO Night Sweats : NO Unexplained Weight Loss : NO Diarrhea (3 episode per day) : NO INGRIS CARVER RN - 04/18/2021 21:04 EDT Physical contact outside [place] in the last 30 days : No Hospitalized in Foreign Country : No Infectious Disease History : Chicken pox/Shingles, Hepatitis C, Influenza, Measles INF Disease TB Screening Calc : 0 INF Disease Recent Travel Calc : 0 INGRIS CARVER RN - 04/18/2021 21:04 EDT Vital Signs ED Temperature Source : Oral Temperature Mode : Fahrenheit Temperature, Fahrenheit : 97 Deg F ED Pain : Yes Clinical Temperature, C : 36.1 Deg C Oxygen Therapy Mode : Room air Peripheral Pulse Rate : 84 bpm Respiratory Rate : 19 Breaths/Min Blood Pressure Location : Arm, left upper Blood Pressure Source : Non-Invasive BP Device Systolic Blood Pressure : 130 mmHg Diastolic Blood Pressure : 66 mmHg INGRIS CARVER RN - 04/18/2021 21:04 EDT Allergy (As Of: 04/18/2021 21:09:01 EDT) Allergies (Active) codeine Estimated Onset Date: Unspecified ; Created By: Contributor_system, HIST_CERAARON; Reaction Status: Active ; Category: Drug ; Substance: codeine ; Type: Allergy ; Updated By: Contributor_system, HIST_CERAARON; Reviewed Date: 04/18/2021 21:04 EDT penicillin Estimated Onset Date: Unspecified ; Created By: Contributor_systemARLEN; Reaction Status: Active ; Category: Drug ; Substance: penicillin ; Type: Allergy ; Updated By: ARLEN Kaplan; Reviewed Date: 04/18/2021 21:04 EDT Diagnosis Control ED (As Of: 04/18/2021 21:09:01 EDT) Problems(Active) GERD (gastroesophageal reflux disease) (SNOMED CT :3020462494 ) Name of Problem: GERD (gastroesophageal reflux disease) ; Recorder: JESSICA AGUILAR PA; Confirmation: Confirmed ; Classification: Medical ; Code: [id number] ; Contributor System: [employer] ; Last Updated: 09/26/2016 16:47 EST ; Life Cycle Date: 09/26/2016 ; Life Cycle Status: Active ; Responsible Provider: JESSICA AGUILAR PA; Vocabulary: SNOMED CT Hepatitis C (SNOMED CT :3852762142 ) Name of Problem: Hepatitis C ; Recorder: JESSICA AGUILAR PA; Confirmation: Confirmed ; Classification: Medical ; Code: [id number] ; Contributor System: [employer] ; Last Updated: 09/26/2016 16:48 EST ; Life Cycle Date: 09/26/2016 ; Life Cycle Status: Active ; Responsible Provider: JESSICA AGUILAR PA; Vocabulary: SNOMED CT Nausea (SNOMED CT :2433094995 ) Name of Problem: Nausea ; Recorder: CARLOS WEIR RN; Confirmation: Confirmed ; Classification: Medical ; Code: [id number] ; Contributor System: [employer] ; Last Updated: 09/26/2016 16:28 EST ; Life Cycle Date: 09/26/2016 ; Life Cycle Status: Active ; Vocabulary: SNOMED CT Peripheral neuropathy (SNOMED CT :9479606023 ) Name of Problem: Peripheral neuropathy ; Recorder: JESSICA AGUILAR PA; Confirmation: Confirmed ; Classification: Medical ; Code: [id number] ; Contributor System: [employer] ; Last Updated: 09/26/2016 16:48 EST ; Life Cycle Date: 09/26/2016 ; Life Cycle Status: Active ; Responsible Provider: JESSICA AGUILAR PA; Vocabulary: SNOMED CT Diagnoses(Active) Medication refill Date: 04/18/2021 ; Diagnosis Type: Reason For Visit ; Confirmation: Complaint of ; Clinical Dx: Medication refill ; Classification: Medical ; Clinical Service: Emergency medicine ; Code: PNED ; Probability: 0 ; Diagnosis Code: [id number] SOA - Shortness of Air Date: 04/18/2021 ; Diagnosis Type: Reason For Visit ; Confirmation: Complaint of ; Clinical Dx: SOA - Shortness of Air ; Classification: Medical ; Clinical Service: Emergency medicine ; Code: PNED ; Probability: 0 ; Diagnosis Code: [id number] ED Height and Weight Height Source : Measured Height Entry Format : [place] Height, Feet : 5 ft(Converted to: 152 cm, 60 Inch) Height, Inches : 9 Inch(Converted to: 0 ft 9 Inch, 22.86 cm) Clinical Height : 175.26 cm Weight Source, ED : Standing scale Weight Entry Format : [place] Weight, Pounds : 135 lb Clinical Dosing Weight : 61.36 kg Body Surface Area (BSA) : 1.75 m2 Body Mass Index : 20 kg/m2 [place] Body Weight (IBW) : 65.73 kg INGRIS CARVER RN - 04/18/2021 21:04 EDT Pain Assessment Pain Assessment : Initial assessment Pain Scale Used : 0-10 Scale Location : Neck Quality : Aching INGRIS CARVER RN - 04/18/2021 21:04 EDT Pain Scale Intensity : 5 INGRIS CARVER RN - 04/18/2021 21:04 EDT Image 4 - Images currently included in the form version of this document have not been included in the text rendition version of the form. ED Influenza/Pneumoccocal Vaccine Influenza Immunization, Current Season : No Previous Vaccines from Immunization Schedule : No qualifying data available. INGRIS CARVER RN - 04/18/2021 21:04 EDT documented in this encounter Plan of Treatment Not on file documented as of this encounter Visit Diagnoses Not on filedocumented in this encounter
--- OUTSIDE RECORDS SUMMARY | 2025-01-05 13:07 | XMS_ITS | Encounter Summary ---
Author Organization [employer] Address [address] [place] [id number] Care Team Providers Care Relationship Advisor Name Role Phone Unavailable Primary Care Provider Unavailabl e Encounter Details Date Type Department Care Team (Late st Contact Info) Description 04/18/2021 Transcribed Document [facility] Family Medicine [facility] [place] [address] ProviderKentrell MD [address] [place] [address] Social History Tobacco Use Types Packs/Day Years Used Date Smoking Tobacco: Never Assessed Comments Unknown Sex and Gender Information Value Date Recorded Sex Assigned at Female 01/13/2022 1:46 PM CDT Legal Sex Female 1:46 PM CDT Gender Identity Female 01/13/2022 1:46 PM CDT Sexual Orientation Not on file documented as of this encounter Miscellaneous Notes * Cerner Conversion Note - Kentrell ProviderMD - 04/18/2021 10:48 PM CDT [place] [id number] ESSENCE ANDUJAR :1960 Visit Time:04/18/2021 Your Visit Summary Your Care Team Primary Provider: ANDRIA RIVAS APRN Secondary Provider: Your Diagnosis Cough COVID Medication refill Medication refill SOA - Shortness of Air Medical Information You may obtain a copy of your Emergency Department visit from Medical Records by calling the hospital phone number listed above and asking to be directed to the Medical Records Department. If you had special tests, such as EKG???s or X-rays, the interpretation of your tests given to you by the Emergency Department Physician is a preliminary report. Some fractures and illnesses fail to show up on preliminary tests. These will be reviewed again and we will call you if there are any new suggestions. If your symptoms continue notify your physician. After you leave, you should follow the instructions provided. What to do next Follow-Up Appointments Follow Up with DAPHNIE ARGUETA When Within 2 to 3 days Comments Keep your appointment with your PCP. Return to ER to any new or worsening symptoms: Chest pain, increasing shortness of breath, dizziness, fainting etc. Prescriptions (1) Active levothyroxine 125 mcg (0.125 mg) oral tablet 125 mcg = 1 Tab, Tab, Daily, Oral, 30 Day(s), 30 Tab, 0 refill(s), Route to Pharmacy Electronically, [facility]/pharmacy #[id number] Where: [address] [place] [address]- Business (1) Follow Up with Return to emergency department When Within 2 to 3 days Follow Up with [facility] (Find a Doc) When Within 2 to 3 days Where: [address] [place] [address]- Business (1) Allergies codeine penicillin Immunizations This Visit No Immunizations Found Medications What How Much When Instructions Next Dose levothyroxine (levothyroxine 125 mcg (0.125 mg) oral tablet) 1 Tablet(s) Oral Every Day Duration: 30 Day(s) Pickup at [facility]/pharmacy #[id number] albuterol (albuterol 90 mcg/ inh inhalation powder) 2 Puff(s) Inhalation Every 6 Hours amphetamine-dextroamphetamine (Adderall 30 mg oral tablet) 2 Tablet(s) Oral Two Times A Day gabapentin (gabapentin 800 mg oral tablet) 1 Tablet(s) Oral Four Times A Day lidocaine topical (lidocaine 1.8% patch) 1 Patch(es) Topical Every 12 hours loratadine (loratadine 10 mg oral tablet) 1 Tablet(s) Oral Every Day meclizine (meclizine 25 mg oral tablet) 1 Tablet(s) Oral Every Day omeprazole 40 Milligram(s) Oral Every Day ondansetron (Zofran 8 mg oral tablet) 1 Tablet(s) Oral Three Times A Day as needed for Nausea topiramate (Topamax 100 mg oral tablet) 1 Tablet(s) Oral Two Times A Day Pharmacy Information [facility]/pharmacy #[id number]: [address] [place], [place] [id number] [phone] The home medications listed are only as accurate as the information you provided. Please continue taking all of your medications prescribed by your Primary Care Provider unless specifically told to change or discontinue the medication. Please direct any questions regarding your home medications to your Primary Care Provider. Take your medications faithfully. Do NOT skip medication. Do NOT stop taking medications without the direction of a physician. Carry a list of your medications with you at all times, and take this medication list with you to your first follow up visit. Report any side effects. Avoid herbal remedies unless discussed with your physician. As part of your treatment plan, your physician may have prescribed a limited course of a controlled substance. This medication may be given to help people with moderate or severe pain or for other medical conditions, but there are risks involved with treatment. Common side effects may include nausea, constipation, drowsiness, sweating, itching, dry mouth, and rash. More serious side effects may include cognitive and motor impairment, like problems with thinking, concentrating, alertness, and movement (e.g. slowed reflexes), and driving and operating heavy machinery can be dangerous. It is important for you to talk to your physician if you have these side effects or questions. These controlled substances can produce physical dependence and be habit-forming if taken for an extended period of time, which means that the body has gotten used to them and may experience withdrawal symptoms if they are abruptly stopped. Withdrawal symptoms can include runny nose, sweating, goose bumps, diarrhea, abdominal cramping, rapid heartbeat, difficulty sleeping, and nervousness. Please dispose of unused and medications per pharmacy guidance. Test Results Laboratory or Other Results This Visit (last charted value for your 04/18/2021 visit) No Laboratory or Other Results This Visit Education Materials COVID-19: What to Do if You Are Sick If you have a fever, cough or other symptoms, you might have COVID-19. Most people have mild illness and are able to recover at home. If you think you may have been exposed to COVID-19, contact your healthcare provider. ??? Keep track of your symptoms. ??? If you have an emergency warning sign (including trouble breathing), get emergency medical care immediately. Self-hot box checker A tool to help you make decisions and seek appropriate medical care About the Tool Steps to help prevent the spread of COVID-19 if you are sick If you are sick with COVID-19 or think you might have COVID-19, follow the steps below to care for yourself and to help protect other people in your home and community. Stay home except to get medical care ??? Stay home. Most people with COVID-19 have mild illness and can recover at home without medical care. Do not leave your home, except to get medical care. Do not visit public areas. ??? Take care of yourself. Get rest and stay hydrated. Take pwvv-xlo-ezcjxux medicines, such as acetaminophen, to help you feel better. ??? Stay in touch with your doctor. Call before you get medical care. Be sure to get care if you have trouble breathing, or have any other emergency warning signs, or if you think it is an emergency. ??? Avoid public transportation, ride-sharing, or taxis. Separate yourself from other people As much as possible, stay in a specific room and away from other people and pets in your home. If possible, you should use a separate bathroom. If you need to be around other people or animals in or outside of the home, wear a mask. Tell your close contacts that they may have been exposed to COVID-19. An infected person can spread COVID-19 starting 48 hours (or 2 days) before the person has any symptoms or tests positive. By letting your close contacts know they may have been exposed to COVID-19, you are helping to protect everyone. ??? Additional guidance is available for those living in close quarters and shared housing. ??? See COVID-19 and Animals if you have questions about pets. ??? If you are diagnosed with COVID-19, someone from the health department may call you. Answer the call to slow the spread. Monitor your symptoms ??? Symptoms of COVID-19 include fever, cough, or other symptoms. ??? Follow care instructions from your healthcare provider and local health department. Your local health authorities may give instructions on checking your symptoms and reporting information. When to seek emergency medical attention Look for emergency warning signs* for COVID-19. If someone is showing any of these signs, seek emergency medical care immediately: ??? Trouble breathing ??? Persistent pain or pressure in the chest ??? New confusion ??? Inability to wake or stay awake ??? Bluish lips or face *This list is not all possible symptoms. Please call your medical provider for any other symptoms that are severe or concerning to you. Call 911 or call ahead to your local emergency facility: Notify the charger operator that you are seeking care for someone who has or may have COVID-19. Call ahead before visiting your doctor ??? Call ahead. Many medical visits for routine care are being postponed or done by phone or telemedicine. ??? If you have a medical appointment that cannot be postponed, call your doctor's office, and tell them you have or may have COVID-19. This will help the office protect themselves and other patients. If you are sick, wear a mask over your nose and mouth ??? You should wear a mask over your nose and mouth if you must be around other people or animals, including pets (even at home). ??? You don't need to wear the mask if you are alone. If you can't put on a mask (because of trouble breathing, for example), cover your coughs and sneezes in some other way. Try to stay at least 6 feet away from other people. This will help protect the people around you. ??? Masks should not be placed on young children under age 2 years, anyone who has trouble breathing, or anyone who is not able to remove the mask without help. Note: During the COVID-19 pandemic, medical grade facemasks are reserved for healthcare workers and some first responders. Cover your coughs and sneezes ??? Cover your mouth and nose with a tissue when you cough or sneeze. ??? Throw away used tissues in a lined trash can. ??? Immediately wash your hands with soap and water for at least 20 seconds. If soap and water are not available, clean your hands with an alcohol-based hand night coordinator that contains at least 60% alcohol. Clean your hands often ??? Wash your hands often with soap and water for at least 20 seconds. This is especially important after blowing your nose, coughing, or sneezing; going to the bathroom; and before eating or preparing food. ??? Use hand night coordinator if soap and water are not available. Use an alcohol-based hand night coordinator with at least 60% alcohol, covering all surfaces of your hands and rubbing them together until they feel dry. ??? Soap and water are the best option, especially if hands are visibly dirty. ??? Avoid touching your eyes, nose, and mouth with unwashed hands. ??? Handwashing Tips Avoid sharing personal household items ??? Do not share dishes, drinking glasses, cups, eating utensils, towels, or bedding with other people in your home. ??? Wash these items thoroughly after using them with soap and water or put in the literacy tutor. Clean all high-touch surfaces everyday ??? Clean and disinfect high-touch surfaces in your sick room and bathroom; wear disposable gloves. Let someone else clean and disinfect surfaces in common areas, but you should clean your bedroom and bathroom, if possible. ??? If a caregiver or other person needs to clean and disinfect a sick person's bedroom or bathroom, they should do so on an as-needed basis. The caregiver/other person should wear a mask and disposable gloves prior to cleaning. They should wait as long as possible after the person who is sick has used the bathroom before coming in to clean and use the bathroom. High-touch surfaces include phones, remote controls, counters, tabletops, doorknobs, bathroom fixtures, toilets, keyboards, tablets, and bedside tables. ??? Clean and disinfect areas that may have blood, stool, or body fluids on them. ??? Use household stage setting painter apprentice and disinfectants. Clean the area or item with soap and water or another detergent if it is dirty. Then, use a household disinfectant. ? Be sure to follow the instructions on the label to ensure safe and effective use of the product. Many products recommend keeping the surface wet for several minutes to ensure germs are killed. Many also recommend precautions such as wearing gloves and making sure you have good ventilation during use of the product. ? Use a product from EPA's List N: Disinfectants for Coronavirus (COVID-19). ? Complete Disinfection Guidance When you can be around others after being sick with COVID-19 Deciding when you can be around others is different for different situations. Find out when you can safely end home isolation. For any additional questions about your care, contact your healthcare provider or state or local health department. 07/18/2020 Content source: National Center for Immunization and Respiratory Diseases (NCIRD),Division of Viral Diseases This information is not intended to replace advice given to you by your health care provider. Make sure you discuss any questions you have with your health care provider. Document Revised: 10/31/2020 Document Reviewed: 10/31/2020 Elsevier Patient Education ?? 2020 [employer] Cough, Adult Coughing is a reflex that clears your throat and your airways (respiratory system). Coughing helps to heal and protect your lungs. It is normal to cough occasionally, but a cough that happens with other symptoms or lasts a long time may be a sign of a condition that needs treatment. An acute cough may only last 2???3 weeks, while a chronic cough may last 8 or more weeks. Coughing is commonly caused by: ??? Infection of the respiratory systemby viruses or bacteria. ??? Breathing in substances that irritate your lungs. ??? Allergies. ??? Asthma. ??? Mucus that runs down the back of your throat (postnasal drip). ??? Smoking. ??? Acid backing up from the stomach into the esophagus (gastroesophageal reflux). ??? Certain medicines. ??? Chronic lung problems. ??? Other medical conditions such as heart failure or a blood clot in the lung (pulmonary embolism). Follow these instructions at home: Medicines ??? Take suzl-hyl-anatwrd and prescription medicines only as told by your health care provider. ??? Talk with your health care provider before you take a cough suppressant medicine. Lifestyle ??? Avoid cigarette smoke. Do not use any products that contain nicotine or tobacco, such as cigarettes, e-cigarettes, and chewing tobacco. If you need help quitting, ask your health care provider. ??? Drink enough fluid to keep your urine pale yellow. ??? Avoid caffeine. ??? Do not drink alcohol if your health care provider tells you not to drink. General instructions ??? Pay close attention to changes in your cough. Tell your health care provider about them. ??? Always cover your mouth when you cough. ??? Avoid things that make you cough, such as perfume, candles, cleaning products, or campfire or tobacco smoke. ??? If the air is dry, use a cool mist vaporizer or humidifier in your bedroom or your home to help loosen secretions. ??? If your cough is worse at night, try to sleep in a semi-upright position. ??? Rest as needed. ??? Keep all follow-up visits as told by your health care provider. This is important. Contact a health care provider if you: ??? Have new symptoms. ??? Cough up pus. ??? Have a cough that does not get better after 2???3 weeks or gets worse. ??? Cannot control your cough with cough suppressant medicines and you are losing sleep. ??? Have pain that gets worse or pain that is not helped with medicine. ??? Have a fever. ??? Have unexplained weight loss. ??? Have night sweats. Get help right away if: ??? You cough up blood. ??? You have difficulty breathing. ??? Your heartbeat is very fast. These symptoms may represent a serious problem that is an emergency. Do not wait to see if the symptoms will go away. Get medical help right away. Call your local emergency services (911 in the [place] Do not drive yourself to the hospital. Summary ??? Coughing is a reflex that clears your throat and your airways. It is normal to cough occasionally, but a cough that happens with other symptoms or lasts a long time may be a sign of a condition that needs treatment. ??? Take rsnd-vnk-xjdgvdw and prescription medicines only as told by your health care provider. ??? Always cover your mouth when you cough. ??? Contact a health care provider if you have new symptoms or a cough that does not get better after 2???3 weeks or gets worse. This information is not intended to replace advice given to you by your health care provider. Make sure you discuss any questions you have with your health care provider. Document Revised: 07/24/2019 Document Reviewed: 07/24/2019 [employer] Patient Education ?? 2020 [employer] Hypothyroidism Hypothyroidism is when the thyroid gland does not make enough of certain hormones (it is underactive). The thyroid gland is a small gland located in the lower front part of the neck, just in front of the windpipe (trachea). This gland makes hormones that help control how the body uses food for energy (metabolism) as well as how the heart and brain function. These hormones also play a role in keeping your bones strong. When the thyroid is underactive, it produces too little of the hormones thyroxine (T4) and triiodothyronine (T3). What are the causes? This condition may be caused by: ??? Cleveland's disease. This is a disease in which the body's disease-fighting system (immune system) attacks the thyroid gland. This is the most common cause. ??? Viral infections. ??? . ??? Certain medicines. ??? defects. ??? Past radiation treatments to the head or neck for cancer. ??? Past treatment with radioactive iodine. ??? Past exposure to radiation in the environment. ??? Past surgical removal of part or all of the thyroid. ??? Problems with a gland in the center of the brain (pituitary gland). ??? Lack of enough iodine in the diet. What increases the risk? You are more likely to develop this condition if: ??? You are female. ??? You have a family history of thyroid conditions. ??? You use a medicine called lithium. ??? You take medicines that affect the immune system (immunosuppressants). What are the signs or symptoms? Symptoms of this condition include: ??? Feeling as though you have no energy (lethargy). ??? Not being able to tolerate cold. ??? Weight gain that is not explained by a change in diet or exercise habits. ??? Lack of appetite. ??? Dry skin. ??? Coarse hair. ??? Menstrual irregularity. ??? Slowing of thought processes. ??? Constipation. ??? Sadness or depression. How is this diagnosed? This condition may be diagnosed based on: ??? Your symptoms, your medical history, and a physical exam. ??? Blood tests. You may also have imaging tests, such as an ultrasound or MRI. How is this treated? This condition is treated with medicine that replaces the thyroid hormones that your body does not make. After you begin treatment, it may take several weeks for symptoms to go away. Follow these instructions at home: ??? Take cnco-hbr-cvxbthm and prescription medicines only as told by your health care provider. ??? If you start taking any new medicines, tell your health care provider. ??? Keep all follow-up visits as told by your health care provider. This is important. ? As your condition improves, your dosage of thyroid hormone medicine may change. ? You will need to have blood tests regularly so that your health care provider can monitor your condition. Contact a health care provider if: ??? Your symptoms do not get better with treatment. ??? You are taking thyroid replacement medicine and you: ? Sweat a lot. ? Have tremors. ? Feel anxious. ? Lose weight rapidly. ? Cannot tolerate heat. ? Have emotional swings. ? Have diarrhea. ? Feel weak. Get help right away if you have: ??? Chest pain. ??? An irregular heartbeat. ??? A rapid heartbeat. ??? Difficulty breathing. Summary ??? Hypothyroidism is when the thyroid gland does not make enough of certain hormones (it is underactive). ??? When the thyroid is underactive, it produces too little of the hormones thyroxine (T4) and triiodothyronine (T3). ??? The most common cause is Cleveland's disease, a disease in which the body's disease-fighting system (immune system) attacks the thyroid gland. The condition can also be caused by viral infections, medicine, , or past radiation treatment to the head or neck. ??? Symptoms may include weight gain, dry skin, constipation, feeling as though you do not have energy, and not being able to tolerate cold. ??? This condition is treated with medicine to replace the thyroid hormones that your body does not make. This information is not intended to replace advice given to you by your health care provider. Make sure you discuss any questions you have with your health care provider. Document Revised: 06/17/2018 Document Reviewed: 06/15/2018 Elsevier Patient Education ?? 2020 [employer] Emergency Awareness and Preventative Care STROKE is an EMERGENCY Every Minute Counts Act FAST and Check for these signs: FACE Does the face look uneven? ARM Does one arm drift down? SPEECH Does their speech sound strange? TIME Call at any sign of stroke Stroke Risk Factors Atrial Fibrillation (irregular heartbeat) Diabetes Family history of stroke Heart Disease Heavy alcohol use High Blood Pressure High Cholesterol Physical inactivity and obesity Smoking Cigarette Smoking The facts are clear, cigarette smoking will shorten your life. Smoking can cause many illnesses along the way. As a healthcare provider, we recommend that you stop smoking. Assistance with quitting is available by contacting 5-032-YCPRNOW. This is a free resource providing counseling, support, and referral. Or you may contact your personal physician. [place] Suicide Prevention Lifeline: The National Suicide Prevention Lifeline is a national network of local crisis centers that provides free and confidential emotional support to people in suicidal crisis or emotional distress 24 hours a day, 7 days a week. Don't Wait! Stop a Heart Attack Before it Starts What is a heart attack? A heart attack is damage or to a part of the heart from severely decreased or lack of blood flow to the heart. Over time, arteries can become narrow from the buildup of fat and cholesterol, which is called plaque. The plaque can rupture causing a blood clot to form. When the blood clot forms, the artery can become severely narrowed or completely blocked, causing a heart attack. Heart attack is the leading cause of in the [place]. 85% of muscle damage occurs within the first 2 hours. Delay in the recognition of heart attack symptoms increases the chances of . Know the early symptoms of a heart attack: Nausea Feeling of fullness in chest Jaw Pain Pain that travels down one or both arms Fatigue/being tired Anxiety Back Pain Chest pressure, squeezing, or discomfort Shortness of breath Sweating, or a cold sweat Feeling of impending doom There are unusual signs of a heart attack, too! Women, the elderly, and diabetics may present with atypical symptoms: Fainting/dizziness Weakness Confusion Risk Factors for a Heart Attack Some heart disease risk factors, such as age and family history, cannot be changed. Others, like smoking and lack of exercise, can be changed. Smoking High Cholesterol High Blood Pressure Family History Obesity Age Gender (Males are at higher risk) Lack of Exercise Diabetes Diet Stress Excessive Alcohol Intake If you or someone you know is experiencing the signs and symptoms of a heart attack, DON???T DELAY. Call immediately and seek help. If someone collapses, perform CPR! Do not attempt to drive if you are having symptoms of heart attack. Hands-Only CPR Why Hands-Only CPR? Hands-Only CPR has been shown to be as effective as conventional CPR for cardiac arrests that occur outside of a hospital. Survival depends on immediately receiving CPR from someone nearby. How do you perform Hands-Only CPR? There are two easy steps: Call 9-1-1 if you see a teen or adult collapse Push hard and fast in the center of the chest at a beat of 100 beats per minute. Save a life! 4 WAYS TO GET AHEAD OF SEPSIS SEPSIS is a MEDICAL EMERGENCY. Time matters! Infections put you and your family at risk for a life-threatening condition called sepsis. Sepsis is the body's extreme response to an infection. It is life-threatening, and without timely treatment, sepsis can rapidly lead to tissue damage, organ failure, and . Sepsis happens when an infection you already have-in your skin, lungs, urinary tract or somewhere else-triggers a chain reaction throughout your body. 1 PREVENT INFECTIONS Take good care of chronic conditions. Talk to your doctor about getting the recommended vaccines. 2 PRACTICE GOOD HYGIENE Wash your hands frequently. Keep cuts or open sores clean and covered until they are healed. 3 KNOW THE SYMPTOMS Confusion or disorientation Shortness of breath High heart rate Fever, shivering, or feeling very cold Extreme pain or discomfort Clammy or sweaty skin 4 ACT FAST Get medical care IMMEDIATELY if you suspect sepsis or if you have an infection that is not getting better or is getting worse. To learn more about sepsis and how to prevent infections, visit www.cdc.gov/sepsis. The examination and treatment you have received in the Emergency Department has been done to provide an appropriate evaluation and stabilizing treatment on an emergency basis only. Given the limited resources, it is not meant to be a substitute for complete medical care. The follow-up doctor you named will receive a copy of your records and all test reports. IT IS IMPORTANT THAT YOU SCHEDULE A FOLLOW-UP APPOINTMENT AND ARE RE-EVALUATED. You should report any new complaints, symptoms, or remaining problems at that time. IT IS IMPOSSIBLE FOR THE EMERGENCY DEPARTMENT TO RECOGNIZE AND TREAT ALL ELEMENTS OF INJURY OR ILLNESS IN A SINGLE VISIT. If you have been referred to a specialist physician, it means that we believe you may have a condition that requires the expertise of a specialist. These physicians work in partnership with the hospital and have agreed to see referred patients in their office for further evaluation. KEEP IN MIND THAT THE SPECIALIST HAS HIS/HER OWN OFFICE POLICIES WHICH MAY REQUIRE PROPER INSURANCE OR PAYMENT UP FRONT BEFORE THE SPECIALIST WILL SEE YOU. It is your responsibility to call the specialist physician to make an appointment. We do not have the ability to refer patients to specialists/physicians that work with specific insurance companies. Please be advised that all financial charges or billing practices are determined by that practice, not the hospital. If your insurance company requires that you see a specialist from their approved list, it is your responsibility to contact your insurance company to make those arrangements. It is also your responsibility to follow any other requirements of your insurance company necessary to obtain coverage for claims submitted. We will bill your insurance; however, you are responsible today for any co-pay amounts. You will receive a separate bill for any services you may have received including: emergency, radiology, or pathology physicians. Patient Name:ESSENCE ANDUJAR I have received this information and was given the opportunity to ask questions. Patient/Trimmer Meat Name: Patient/Trimmer Meat Signature: Relationship to Patient: Clinician/Hospital Trimmer Meat Signature: Please Provide a Telephone Number Where You Can Be Reached: Is it Permissible To Leave a Message? Date: Electronically signed by Interface, [facility] Conversion Body Shop Supervisor Any at 11/06/2022 10:41 AM CDT documented in this encounter Plan of Treatment Not on file documented as of this encounter Visit Diagnoses Not on filedocumented in this encounter
--- OUTSIDE RECORDS SUMMARY | 2025-01-05 13:07 | XMS_ITS | Encounter Summary ---
Author Organization [facility] [employer] [employer] Address [address] [place] [address] Care Team Providers Care Virology Teacher Name Role Phone Unavailable Primary Care Provider Unavailabl e Encounter Details Date Type Department Care Team (Late st Contact Info) Description 04/18/2021 Transcribed Document [facility] [place] Medicine [address] [place] [address] ProviderKentrell MD [address] [place] [address] Social History Tobacco Use Types Packs/Day Years [...] Historical ProviderMD - 04/18/2021 8:57 PM CDT Dickson Suicide Severity Rating Scale (C-SSRS) Entered On: 04/18/2021 21:51 EDT Performed On: 04/18/2021 21:49 EDT by DIXON CARDENAS RN Dickson Suicide Severity Rating Scale (C-SSRS) CSSRS Past Month Wish to be : No CSSRS Past Month Suicidal Thoughts : No CSSRS Lifetime Suicide Behavior : No Suicide Severity Rating Score : 0 Suicide Severity Rating : No Additional Care Required at this time DIXON CARDENAS RN - 04/18/2021 21:49 EDT Electronically signed by Helen Sorensen Conversion Window Unit Air Conditioning Mechanic Cerner at 11/06/2022 10:41 AM CDT documented in this encounter Plan of Treatment Not on file documented as of this encounter Visit Diagnoses Not on filedocumented in this encounter
--- OUTSIDE RECORDS SUMMARY | 2025-01-05 13:07 | XMS_ITS | Encounter Summary ---
Author Organization [employer] Address [address] [place] [address] Care Team Providers Care Package Wrapper Name Role Phone Unavailable Primary Care Provider Unavailabl e Encounter Details Date Type Department Care Team (Late st Contact Info) Description 04/18/2021 Transcribed Document [facility] [place] Medicine [facility] [place] [address] ProviderKentrell MD [address] [place] [address] Social History Tobacco Use Types Packs/Day Years [...] Conversion Note - Historical ProviderMD - 04/18/2021 10:45 PM CDT Electronically signed by Franchesca [facility] Conversion Cvt Rn Cerner at 11/06/2022 10:38 AM CDT documented in this encounter Plan of Treatment Not on file documented as of this encounter Visit Diagnoses Not on filedocumented in this encounter
--- OUTSIDE RECORDS SUMMARY | 2025-01-05 13:07 | XMS_ITS | Encounter Summary ---
Author Organization [employer] [facility] Address [address] [place] [address] Care Team Providers Care Water Resources Technical Officer Name Role Phone Unavailable Primary Care Provider Unavailabl e Encounter Details Date Type Department Care Team (Late st Contact Info) Description 06/20/2021 Transcribed Document [facility] [place] [facility] [place] [address] ProviderKentrell MD [address] [place] [address] Social History Tobacco Use Types [...] Cerner Conversion Note - Kentrell ProviderMD - 06/20/2021 10:29 PM CREWMAN ARMOURED PERSONNEL CARRIER [address] [place] [id number] ESSENCE ANDUJAR :1960 Visit Time:06/20/2021 Your Visit Summary Your Care Team Primary Provider: ANDRIA RIVAS APRN Secondary Provider: Your Diagnosis Dental abscess Dental caries Dental pain Medical Information You may obtain a copy [...] do next Follow-Up Appointments Follow Up with Pete Balderas When Within 2 to 3 days Comments Call in the AM follow-up with dentist, return to ER for increasing pain, fever, facial swelling, difficulty swallowing Where: [address] [place] [address]- [facility] (1) Follow Up with NO [facility] DR VU When Within 2 to 3 days Allergies codeine penicillin Immunizations This Visit No Immunizations Found Medications What How Much When Instructions Next Dose clindamycin (clindamycin 150 mg oral capsule) 3 Capsule(s) Oral Every 8 Hours Duration: 10 Day(s) Pickup at [facility][id number] saccharomyces boulardii lyo (Florastor 250 mg oral capsule) 1 Capsule(s) Oral Every Day Duration: 10 Day(s) Pickup at [facility] #[id number] albuterol (albuterol 90 mcg/ inh inhalation powder) 2 Puff(s) Inhalation Every 6 Hours amphetamine-dextroamphetamine (Adderall 30 mg oral tablet) 2 Tablet(s) Oral Two Times A Day gabapentin (gabapentin 800 mg oral tablet) 1 Tablet(s) Oral Four Times A Day levothyroxine (levothyroxine 125 mcg (0.125 mg) oral tablet) 1 Tablet(s) Oral Every Day Duration: 30 Day(s) lidocaine topical (lidocaine 1.8% patch) 1 Patch(es) [...] Oral Two Times A Day Pharmacy Information [facility][id number]: [address], [place] [id number] [phone] The home medications listed are only as [...] This Visit (last charted value for your 06/20/2021 visit) No Laboratory or Other Results This Visit Education Materials Dental Pain Dental pain may be caused by many things, including: ??? Tooth decay (cavities or caries). Cavities expose the nerve of your tooth to air and to hot or cold temperatures. This can cause pain or discomfort. ??? Abscess or infection. A dental abscess is a collection of pus from a bacterial infection in the inner part of the tooth (pulp). It usually occurs at the end of the root of a tooth. ??? Injury. ??? An unknown reason (idiopathic). Your pain may be mild or severe. It may occur when you are: ??? Chewing. ??? Exposed to hot or cold temperatures. ??? Eating or drinking sugary foods or beverages, such as soda or candy. Your pain may be constant, or it may come and go without cause. Follow these instructions at home: Watch your dental pain for any changes. The following actions may help to lessen any discomfort that you are feeling: Medicines ??? Take ggvn-dqk-cqyeffx and prescription medicines only as told by your health care provider. ??? If you were prescribed an antibiotic medicine, take it as told by your health care provider. Do not stop taking the antibiotic even if you start to feel better. Eating and drinking ??? Avoid foods or drinks that cause you pain, such as: ? Very hot or very cold foods or drinks. ? Sweet or sugary foods or drinks. Managing pain and swelling ??? Apply ice to the painful area of your face: ? Put ice in a plastic bag. ? Place a towel between your skin and the bag. ? Leave the ice on for 20 minutes, 2???3 times a day. Brushing your teeth ??? To keep your mouth and gums healthy, use fluoride toothpaste to brush your teeth twice a day. Floss once a day. ??? Use a toothpaste made for sensitive teeth if directed by your health care provider. ??? Catlett your teeth with a soft-bristled toothbrush. General instructions ??? Do not apply heat to the outside of your face. ??? Gargle with a salt-water mixture 3???4 times a day or as needed. To make a salt-water mixture, completely dissolve ?1 tsp of salt in 1 cup of warm water. ??? Keep all follow-up visits as told by your health care provider. This is important. ??? Apply ice to the outside of your jaw if there is swelling. Do not put ice directly on the skin. Contact a health care provider if: ??? Your pain is not controlled with medicines. ??? Your symptoms get worse. ??? You have new symptoms. Get help right away if you: ??? Are unable to open your mouth. ??? Are having trouble breathing or swallowing. ??? Have a fever. ??? Notice that your face, neck, or jaw is swollen. Summary ??? Dental pain may be caused by many things, including tooth decay and infection. ??? Your pain may be mild or severe. ??? Take wehj-rxg-kmkdiog and prescription medicines only as told by your health care provider. ??? Watch your dental pain for any changes. Let your health care provider know if symptoms get worse. This information is not intended to replace advice given to you by your health care provider. Make sure you discuss any questions you have with your health care provider. Document Revised: 10/31/2019 Document Reviewed: 05/26/2018 Elsevier Patient Education ?? 2020 [employer]. Emergency Awareness and Preventative Care STROKE is [...] Assistance with quitting is available by contacting 5-460-LDIN-NOW. This is a free resource providing counseling, support, and referral. Or you may contact your personal physician. National Suicide Prevention Lifeline: The National Suicide Prevention [...] CPR? There are two easy steps: Call if you see a teen or adult [...] including: emergency, radiology, or pathology physicians. Patient Name:JUSTOHerbertESSENCE ANDINO I have received this information and was given the opportunity to ask questions. Patient/Regulatory Internship Name: Patient/Regulatory Internship Signature: Relationship to Patient: Clinician/Hospital Regulatory Internship Signature: Please Provide a Telephone Number Where You Can Be Reached: Is it Permissible To Leave a Message? Date: documented in this encounter Plan of Treatment Not on file documented as of this encounter Visit Diagnoses Not on filedocumented in this encounter
--- OUTSIDE RECORDS SUMMARY | 2025-01-05 13:07 | XMS_ITS | Encounter Summary ---
Author Organization [employer] Address [address] [place] [address] Care Team Providers Care Carrier Associate Name Role Phone Unavailable Primary Care Provider Unavailabl e Encounter Details Date Type Department Care Team (Late st Contact Info) Description 06/20/2021 Transcribed Document [facility] [place] Family Medicine [facility] [place] [address] ProviderKentrell MD [address] [place] [address] Social History Tobacco Use Types Packs/Day Years [...] Conversion Note - Historical ProviderMD - 06/20/2021 10:18 PM MANIFOLD BUILDER Electronically signed by Franchesca [facility] Conversion Blind Hooker Cerner at 11/06/2022 10:24 AM CDT documented in this encounter Plan of Treatment Not on file documented as of this encounter Visit Diagnoses Not on filedocumented in this encounter
--- OUTSIDE RECORDS SUMMARY | 2025-01-05 13:07 | XMS_ITS | Encounter Summary ---
Author Organization [employer] Address [address] [place] [address] Care Team Providers Care Security Intelligence Analyst Name Role Phone Unavailable Primary Care Provider Unavailabl e Encounter Details Date Type Department Care Team (Late st Contact Info) Description 06/20/2021 Transcribed Document [facility] [place] [facility] [place] [address] ProviderKentrell MD [address] [id number] Social History Tobacco Use Types Packs/Day Years [...] Conversion Note - Historical ProviderMD - 06/20/2021 7:42 PM BOILER OPERATOR HELPER ED Triage Entered On: 06/20/2021 20:16 EST Performed On: 06/20/2021 20:13 EST by Jannette Bennett RN ED Triage Across the Room Chief Complaint : I broke a tooth off 2 wks ago and since 6:00 tonight it has been excruciating. States pain is right lower jaw. Ibuprofen 1800. Triage Date/Time : 06/20/2021 20:13 EST Jannette Bennett RN - 06/20/2021 20:13 EST DCP GENERIC CODE Tracking Acuity : 4 - Non - Urgent Tracking Group : [facility] Jannette Bennett RN - 06/20/2021 20:13 EST Mode of Arrival : Ambulatory Transported to ED by : Walk in To Room Via : Ambulate Accompanied By : Unaccompanied ED Vital Signs : Document Height & Weight : Document ED Allergies : Document ED Reason for Visit : Document ED Triage Treatments : Document Jannette Bennett RN - 06/20/2021 20:13 EST Infectious Disease History Does patient have symptoms of COVID-19? : No Has the Patient Been Tested for COVID-19 in the last 14 days? : No, Patient stated Does the Patient state known exposure to a COVID-19 positive case in the last 14 days? : No Patient Vaccinated for COVID-19 : Fully vaccinated Jannette Bennett RN - 06/20/2021 20:13 EST Infectious Disease Risk Screening Grid Cough < 2 wks of unknown origin : NO Cough > 2 weeks : NO Blood in Sputum : NO Fever or self-reported Fever : NO Rash of unknown origin : NO Headache : NO Stiff neck : NO Night Sweats : NO Unexplained Weight Loss : NO Diarrhea (3 episode per day) : NO Jannette Bennett RN - 06/20/2021 20:13 EST Physical contact outside [place] in the last 30 days : No Hospitalized in [place] : No Infectious Disease History : Chicken pox/Shingles, Hepatitis C, Influenza, Measles INF Disease TB Screening Calc : 0 INF Disease Recent Travel Calc : 0 Jannette Bennett RN - 06/20/2021 20:13 EST Vital Signs ED Temperature Source : Temporal artery scanning Temperature Mode : Fahrenheit Temperature, Fahrenheit : 97.2 Deg F Clinical Temperature, C : 36.2 Deg C Oxygen Therapy Mode : Room air Peripheral Pulse Rate : 94 bpm Respiratory Rate : 20 Breaths/Min Systolic Blood Pressure : 108 mmHg Diastolic Blood Pressure : 62 mmHg Oxygen Saturation : 96 % Jannette Bennett RN - 06/20/2021 20:13 EST Allergy (As Of: 06/20/2021 20:16:57 EST) Allergies (Active) codeine Estimated Onset Date: Unspecified ; Created By: Contributor_system HIST_SUSAN; Reaction Status: Active ; Category: Drug ; Substance: codeine ; Type: Allergy ; Updated By: ARLEN Kaplan; Reviewed Date: 06/20/2021 20:16 EST penicillin Estimated Onset Date: Unspecified ; Created By: Contributor_figueroa HISTGUCCI; Reaction Status: Active ; Category: Drug ; Substance: penicillin ; Type: Allergy ; Updated By: Contributor_system, AUTUMN_SUSAN; Reviewed Date: 06/20/2021 20:16 EST Diagnosis Control ED (As Of: 06/20/2021 20:16:57 EST) Problems(Active) Anxiety (SNOMED CT :04795683 ) Name of Problem: Anxiety ; Recorder: DIXON CARDENAS RN; Confirmation: Confirmed ; Classification: Medical ; Code: [id number] ; Contributor System: [employer] ; Last Updated: 04/18/2021 21:48 EDT ; Life Cycle Date: 04/18/2021 ; Life Cycle Status: Active ; Vocabulary: SNOMED CT Bipolar disorder (SNOMED CT :53978988 ) Name of Problem: Bipolar disorder ; Recorder: DIXON CARDENAS RN; Confirmation: Confirmed ; Classification: Medical ; Code: [id number] ; Contributor System: [employer]Chart ; Last Updated: 04/18/2021 21:48 EDT ; Life Cycle Date: 04/18/2021 ; Life Cycle Status: Active ; Vocabulary: SNOMED CT COPD (chronic obstructive pulmonary disease) (SNOMED CT :23608780 ) Name of Problem: COPD (chronic obstructive pulmonary disease) ; Recorder: DIXON CARDENAS RN; Confirmation: Confirmed ; Classification: Medical ; Code: [id number] ; Contributor System: [employer]Chart ; Last Updated: 04/18/2021 21:48 EDT ; Life Cycle Date: 04/18/2021 ; Life Cycle Status: Active ; Vocabulary: SNOMED CT Depression (SNOMED CT :15487803 ) Name of Problem: Depression ; Recorder: DIXON CARDENAS RN; Confirmation: Confirmed ; Classification: Medical ; Code: [id number] ; Contributor System: Power[employer] ; Last Updated: 04/18/2021 21:48 EDT ; Life Cycle Date: 04/18/2021 ; Life Cycle Status: Active ; Vocabulary: SNOMED CT GERD (gastroesophageal reflux disease) (SNOMED CT :1105470488 ) Name of Problem: GERD (gastroesophageal reflux disease) ; Recorder: JESSICA AGUILAR PA; Confirmation: Confirmed ; Classification: Medical ; Code: [id number] ; Contributor System: [employer]Chart ; Last Updated: 09/26/2016 16:47 EST ; Life Cycle Date: 09/26/2016 ; Life Cycle Status: Active ; Responsible Provider: JESSICA AGUILAR PA; Vocabulary: SNOMED CT Hepatitis C (SNOMED CT :3049243497 ) Name of Problem: Hepatitis C ; Recorder: JESSICA AGUILAR PA; Confirmation: Confirmed ; Classification: Medical ; Code: [id number] ; Contributor System: [employer]Chart ; Last Updated: 09/26/2016 16:48 EST ; Life Cycle Date: 09/26/2016 ; Life Cycle Status: Active ; Responsible Provider: JESSICA AGUILAR PA; Vocabulary: SNOMED CT Narcolepsy (SNOMED CT :610809223 ) Name of Problem: Narcolepsy ; Recorder: DIXON CARDENAS RN; Confirmation: Confirmed ; Classification: Medical ; Code: [id number] ; Contributor System: [employer] ; Last Updated: 04/18/2021 21:48 EDT ; Life Cycle Date: 04/18/2021 ; Life Cycle Status: Active ; Vocabulary: SNOMED CT Nausea (SNOMED CT :7424246463 ) Name of Problem: Nausea ; Recorder: CARLOS WEIR RN; Confirmation: Confirmed ; Classification: Medical ; Code: [id number] ; Contributor System: [employer]Chart ; Last Updated: 09/26/2016 16:28 EST ; Life Cycle Date: 09/26/2016 ; Life Cycle Status: Active ; Vocabulary: SNOMED CT Peripheral neuropathy (SNOMED CT :2579248475 ) Name of Problem: Peripheral neuropathy ; Recorder: JESSICA AGUILAR PA; Confirmation: Confirmed ; Classification: Medical ; Code: [id number] ; Contributor System: PowerChart ; Last Updated: 09/26/2016 16:48 EST ; Life Cycle Date: 09/26/2016 ; Life Cycle Status: Active ; Responsible Provider: JESSICA AGUILAR PA; Vocabulary: SNOMED CT Diagnoses(Active) Dental pain Date: 06/20/2021 ; Diagnosis Type: Reason For Visit ; Confirmation: Complaint of ; Clinical Dx: Dental pain ; Classification: Medical ; Clinical Service: Emergency medicine ; Code: PNED ; Probability: 0 ; Diagnosis Code: [id number] ED Height and Weight Height Source : Stated Height Entry Format : Jarratt Height, Feet : 5 ft(Converted to: 152 cm, 60 Inch) Height, Inches : 9 Inch(Converted to: 0 ft 9 Inch, 22.86 cm) Clinical Height : 175.26 cm Weight Source, ED : Standing scale Weight Entry Format : Jarratt Weight, Pounds : 140 lb Clinical Dosing Weight : 63.64 kg Body Surface Area (BSA) : 1.78 m2 Body Mass Index : 20.7 kg/m2 Mobile Body Weight (IBW) : 65.73 kg Jannette Bennett RN - 06/20/2021 20:13 EST Triage Initial Exam and Interventions, ED Level of Consciousness : Alert, Awake Affect/Behavior : Cooperative Orientation : Oriented x 4 Skin Temperature : Warm Skin Description : Normal for ethnicity Jannette Bennett RN - 06/20/2021 20:13 EST documented in this encounter Plan of Treatment Not on file documented as of this encounter Visit Diagnoses Not on filedocumented in this encounter
--- OUTSIDE RECORDS SUMMARY | 2025-01-05 13:07 | XMS_ITS | Encounter Summary ---
Author Organization [employer] Address [address] [place] [address] Care Team Providers Care Engineering Production Worker Name Role Phone Unavailable Primary Care Provider Unavailabl e Encounter Details Date Type Department Care Team (Late st Contact Info) Description 06/20/2021 Transcribed Document [facility] [place] [address] [place] [address] ProviderKentrell MD [address] [place] [address] Social History Tobacco Use Types Packs/Day Years [...] - Historical ProviderMD - 06/20/2021 7:42 PM GAS ROLLER OPERATOR Arab Suicide Severity Rating Scale (C-SSRS) Entered On: 06/20/2021 22:19 EST Performed On: 06/20/2021 22:19 EST by PENNY MICHELE RN Arab Suicide Severity Rating Scale (C-SSRS) CSSRS Past Month Wish to be : No CSSRS Past Month Suicidal Thoughts : No CSSRS Lifetime Suicide Behavior : No Suicide Severity Rating Score : 0 Suicide Severity Rating : No Additional Care Required at this time Thoughts of Harming/Killing Others : No PENNY MICHELE RN - 06/20/2021 22:19 EST Electronically signed by Franchesca [facility] Conversion Webbing Seamer Pound Net Cerner at 11/06/2022 10:40 AM CDT documented in this encounter Plan of Treatment Not on file documented as of this encounter Visit Diagnoses Not on filedocumented in this encounter
--- OUTSIDE RECORDS SUMMARY | 2025-01-05 13:07 | XMS_ITS | Clinical Summary ---
Author Organization [facility] Address [address] [place] [address] Care Team Providers Care All Around Gear Machine Operator Name Role Phone Unavailable Primary Care Provider Unavailabl e Family History Medical History Relation Name Comments Diabetes Brother Diabetes Father Bone cancer Maternal Grandmother Conversions - Other Mother malignan t neoplasm of ovary Leukemia Paternal Grandfather Relation Name Status Comments Brother Father Maternal Grandmother Mother Paternal Grandfather Social History Tobacco Use Types Packs/Day Years Used Date Smoking Tobacco: Every Day Comments Unknown Sex and Gender Information Value Date Recorded Sex Assigned at Not on file Legal Sex Female 7:47 PM EDT Gender Identity Not on file Sexual Orientation Not on file Last Filed Vital Signs Vital Sign Reading Time Taken Comments Blood Pressure 100/70 03/27/2020 4:11 PM EDT Pulse 82 03/27/2020 4:11 PM EDT Temperature - - Respiratory Rate 14 03/27/2020 4:11 PM EDT Oxygen Saturation - - Inhaled Oxygen Concentration - - Weight 63.5 kg (139 lb 15.5 oz) 03/27/2020 4:11 PM EDT Height 175.3 cm (5' 9 ) 03/27/2020 4:11 PM EDT Body Mass Index 20.67 03/27/2020 4:11 PM EDT Plan of Treatment Health Maintenance Due Date Last Done Comments Dental Oral Exam 1960 Dental Prophylaxis 1960 Dental X-Ray: Bitewings 1960 Dental X-Ray: Full Mouth 1960 [facility]-Depression Screening 1960 [facility]-/Child/Adol SDOH Screenings 1960 [facility]- SDOH Screenings 01/20/1978 [facility]-Adult SDOH Screenings 01/20/1978 [facility]-DTaP,Tdap,and Td Vaccine s (1 - Tdap) 01/20/1979 [facility]-Pap Smear 01/20/1981 [facility]-Cervical Cancer Screening 01/20/1990 [facility]-HPV/Cotest 01/20/1990 CT Colonography 01/20/2005 Colonoscopy 01/20/2005 FIT-DNA 01/20/2005 FIT 01/20/2005 FOBT 01/20/2005 Sigmoidoscopy 01/20/2005 [facility]-Colorectal Cancer Screening 01/20/2005 [facility]-Pneumococcal Vaccine: 50 + Years (1 of 1 - PCV) 01/20/2010 [facility]-Zoster Vaccines (1 of 2) 01/20/2010 GVX-ANHVD-27 Vaccine (1 - 20 24-25 season) 2024 [facility]-Influenza Vaccine (Seaso n Ended) 2025 [facility]-RSV Vaccine: 60+ Years o r (1 - 1-dose 75+ series) 01/20/2035 HPV Vaccines Aged Out No longer eligi ble based on patient's age to complete this topic [facility]-HIB Vaccines Aged Out No longer e ligible based on patient's age to complete this topic [facility]-Hepatitis A Vaccines Aged Out No longer eligible based on patient's age to complete this topic [facility]-IPV Vaccines Aged Out No longer e ligible based on patient's age to complete this topic [facility]-Rotavirus Vaccines Aged Out No lo nger eligible based on patient's age to complete this topic Insurance [facility] MEDICAID
--- OUTSIDE RECORDS SUMMARY | 2025-01-05 13:07 | XMS_ITS | Encounter Summary ---
Author Organization [employer] Address [address] [place] [address] Care Team Providers Care Supervisor Grinding Name Role Phone Unavailable Primary Care Provider Unavailabl e Encounter Details Date Type Department Care Team (Late st Contact Info) Description 06/20/2021 Transcribed Document [facility] [place] Family Medicine [facility] [place] [address] ProviderKentrell MD [address] [place], [place] [id number] Social History Tobacco Use Types Packs/Day Years [...] - Historical ProviderMD - 06/20/2021 7:42 PM PRIVATE SECURITY GUARD ED Assessment Entered On: 06/20/2021 22:19 EST Performed On: 06/20/2021 22:18 EST by PENNY MICHELE RN ED Quick Look Assessment Level of Consciousness : Alert, Awake Affect/Behavior : Appropriate Orientation : Oriented x 4 Skin Color : Other: wnl Skin Temperature : Warm Skin Description : Dry PENNY MICHELE RN - 06/20/2021 22:18 EST ED General-Functional Assess Information Obtained From : Patient Preferred Communication Mode : Verbal Communication Barrier : None Primary Language : Guamanian Any Spiritual/Cultural Needs or Requests : No Currently in Unsafe Situation : No PENNY MICHELE RN - 06/20/2021 22:18 EST Social Habits Smoking Status : 10 or more cigarettes (1/2 pack or more)/day in last 30 days Smokeless Tobacco Status : Never Desires Tobacco Cessation Medication : No Reason for No Tobacco Cessation Medication : ED/procedural patient only Desires Tobacco Cessation Calc : 1 PENNY MICHELE RN - 06/20/2021 22:18 EST Social History (As Of: 06/20/2021 22:19:30 EST) Tobacco: Smoking Status Current every day smoker. [...] Home/Independent. (Last Updated: 09/26/2016 16:47:40 EST by JESSICA AGUILAR PA) EENT Assessment Mouth/Throat Assessment Comment : reports here for tooth/jaw pain, provider assessment PENNY MICHELE RN - 06/20/2021 22:18 EST documented in this encounter Plan of Treatment Not on file documented as of this encounter Visit Diagnoses Not on filedocumented in this encounter
--- OUTSIDE RECORDS SUMMARY | 2025-01-05 13:07 | XMS_ITS | Encounter Summary ---
Author Organization [employer] Address [address] [place] [address] Care Team Providers Care Customer Service Correspondence Clerk Name Role Phone Unavailable Primary Care Provider Unavailabl e Encounter Details Date Type Department Care Team (Late st Contact Info) Description 04/18/2021 Transcribed Document [facility] Radiology [address] [place] [address] Vasquez Danielle MD [address] [place] [address] Dept. [place] [address] Social History Tobacco Use Types Packs/Day Years Used Date Smoking Tobacco: Never Assessed Comments Unknown Sex and Gender Information Value Date Recorded Sex Assigned at Female 01/13/2022 1:46 PM CDT Legal Sex Female 1:46 PM CDT Gender Identity Female 01/13/2022 1:46 PM CDT Sexual Orientation Not on file documented as of this encounter Miscellaneous Notes * Cerner Conversion Note - Vasquez Danielle MD - 04/18/2021 11:08 PM EDT Patient: ESSENCE ANDUJAR Age: 61 years Sex: Female : 1960 Associated Diagnoses: Medication refill; Cough; COVID Author: ANDRIA RIVAS APRN Basic Information Time seen: Date & time 04/18/2021 22:08:00. History source: Patient. Arrival mode: Private vehicle. History limitation: None. Additional information: Chief Complaint from Nursing Triage Note : Chief Complaint 04/18/2021 21:04 EDT Chief Complaint c/o ran out of her medications (thyroid meds and the rest); states she switched PMD. also c/o SOA since yesterday- dx with Covid19 this past Wednesday- thinks it was a false positive. . History of Present Illness The patient presents with difficulty breathing and respiratory problem. The onset was 1 days ago. The course/duration of symptoms is fluctuating in intensity. Degree at onset mild. Degree at present mild. The Exacerbating factors is none. The Relieving factors is none. Risk factors consist of Recent diagnosis with Covid. Prior episodes: none. Associated symptoms: cough, denies chest pain, denies fever and denies chills. The patient presents with medication refill request. Medication(s) requested: Levothyroxine 125 mcg. The last dose was 3 weeks prior to arrival. Indication for the medication: Hypothyroid. The prescribing physician is DIANDRA KERR [facility]. Prior episodes: none. Therapy today: none. Associated symptoms: shortness of breath. Patient is a 61-year-old female with history of hypothyroid, narcolepsy, peripheral neuropathy presents today for medication refill. She removed and does not have primary healthcare provider. She states she out of her levothyroxine 125 mcg about 3 weeks ago. She has an appointment with a physician in [place] in about 3 weeks. She is tearful and asking about her thyroid medications to be refilled. She states she had her thyroid removed several years ago and being on levothyroxine for many years. She denies chest pain or palpitations. She was recently diagnosed with Covid, reports no symptoms until 2 days ago, she feels slightly short of breath.. Review of Systems Constitutional symptoms: No fever, no chills, no decreased activity. Skin symptoms: No rash, Eye symptoms: Vision unchanged. ENMT symptoms: No sore throat, Respiratory symptoms: No shortness of breath, no cough. Cardiovascular symptoms: No chest pain, no syncope. Gastrointestinal symptoms: No abdominal pain, no vomiting, no diarrhea. Genitourinary symptoms: No dysuria, Musculoskeletal symptoms: No back pain, Neurologic symptoms: No headache, Psychiatric symptoms: Anxiety. Endocrine symptoms: No polyuria, Hematologic/Lymphatic symptoms: Bleeding tendency negative, Allergy/immunologic symptoms: No recurrent infections, Health Status Allergies: Allergic Reactions (All) Severity Not Documented Codeine- No reactions were documented. Penicillin- No reactions were documented.. Medications: (Selected) Documented Medications Documented Adderall 30 mg oral tablet: 2 Tab, Oral, BID, 0 Refill(s) Topamax 100 mg oral tablet: 1 Tab, Oral, BID, 0 Refill(s) Zofran 8 mg oral tablet: 1 Tab, Oral, TID, PRN: Nausea, 0 Refill(s) albuterol 90 mcg/inh inhalation powder: 2 Puff, Inhalation, Q6H, 0 Refill(s) gabapentin 800 mg oral tablet: 1 Tab, Oral, QID, 0 Refill(s) lidocaine 1.8% patch: 1 Patch, Topical, Q12H, 0 Refill(s) loratadine 10 mg oral tablet: 1 Tab, Oral, Daily, 0 Refill(s) meclizine 25 mg oral tablet: 1 Tab, Oral, Daily, 0 Refill(s) omeprazole: 40 mg, Oral, Daily, 0 Refill(s). Past Medical/ Family/ Social History Medical history Reviewed as documented in chart. Endocrine: hypothyroid. Neurological: migraine. Surgical history: Stomach surgery. Bilateral tubal ligation ([id number]). Hernia repair ([id number])., Reviewed as documented in chart. Family history: No family history items have been selected or recorded., Reviewed as documented in chart. Social history: Social & Psychosocial Habits Alcohol 04/18/2021 Alcohol Use History, Social Habits Yes Alcohol Use in Last Twelve Months Yes Alcohol Use Frequency Rarely Home/Environment 09/26/2016 Living situation: Home/Independent Substance Abuse 04/18/2021 Recreational Drug Use History No Recreational Drug Use Last 12 Months No Tobacco 09/26/2016 Smoking Status Current every day smoker , Reviewed as documented in chart. Problem list: Active Problems (9) Anxiety Bipolar disorder COPD (chronic obstructive pulmonary disease) Depression GERD (gastroesophageal reflux disease) Hepatitis C Narcolepsy Nausea Peripheral neuropathy , per nurse's notes. Physical Examination Vital Signs Vital Signs/Vital Measures 04/18/2021 21:49 EDT Oxygen Therapy Mode Room air 04/18/2021 21:47 EDT Systolic Blood Pressure 108 mmHg Diastolic Blood Pressure 70 mmHg Mean Arterial Pressure (MAP)-BMDI 84 Heart Rate Monitored 76 bpm Respiratory Rate 16 Breaths/Min Oxygen Saturation 100 % Oxygen Therapy Mode Room air 04/18/2021 21:04 EDT Blood Pressure Location Arm, left upper Blood Pressure Source Non-Invasive BP Device Systolic Blood Pressure 130 mmHg Diastolic Blood Pressure 66 mmHg Temperature Source Oral Temperature Mode Fahrenheit Temperature, Fahrenheit 97 Deg F Clinical Temperature, C 36.1 Deg C Peripheral Pulse Rate 84 bpm Respiratory Rate 19 Breaths/Min Oxygen Therapy Mode Room air . Measurements 04/18/2021 21:04 EDT Height Source Measured Height Entry Format [place] Height/Length, ROMANIAN (ft) 5 ft Height/Length ROMANIAN 9 Inch CLINICALHEIGHT 175.26 cm [facility] Body Weight 65.73 kg Weight Source, ED Standing scale Weight Entry Format [place] Weight Gabonese lb 135 lb CLINICALWEIGHT 61.36 kg Body Surface Area (BSA) 1.75 m2 Body Mass Index 20 kg/m2 . Oxygen Saturation 04/18/2021 21:47 EDT Oxygen Saturation 100 % . General: Alert, no acute distress, Tearful. Skin: Warm, dry, intact. Head: Normocephalic, atraumatic. Neck: Supple, no tenderness. Eye: Pupils are equal, round and reactive to light, extraocular movements are intact, normal conjunctiva. Ears, nose, mouth and throat: Tympanic membranes clear, oral mucosa moist. Cardiovascular: Regular rate and rhythm, No murmur. Respiratory: Lungs are clear to auscultation, respirations are non-labored, breath sounds are equal. Chest wall: No tenderness. Back: Nontender. Gastrointestinal: Soft, Nontender. Genitourinary Neurological: Alert and oriented to person, place, time, and situation. Psychiatric: Cooperative. Medical Decision Making Differential Diagnosis: Pneumonia, chronic obstructive pulmonary disease, upper respiratory infection, anxiety, Covid. Differential Diagnosis: Medication refill request, issue of repeat prescriptions. Radiology results: X-ray, reveals no acute disease process. Reexamination/ Reevaluation Time: 04/18/2021 22:43:00 . Course: improving. Impression and Plan Diagnosis Medication refill - Discharge, Medical Cough - Discharge, Medical COVID - Discharge, Medical Plan Condition: Stable. Disposition: Discharged Admit/Transfer/Discharge: Discharge (Order): Start: 04/18/2021 22:45 EDT, Discharge to: Home. Prescriptions: Prescription Satellite Television Installer Pharmacy: levothyroxine 125 mcg (0.125 mg) oral tablet (Prescribe): 1 Tab, Oral, Daily, for 30 Day(s), 30 Tab, 0 Refill(s). Patient was given the following educational materials: Hypothyroidism, Cough, Adult, COVID-19: What to Do if You Are Sick - CDC (07/18/2020), COVID-19: What to Do if You Are Sick - CDC (07/18/2020), Cough, Adult, Hypothyroidism, COVID-19: What to Do if You Are Sick - CDC (07/18/2020), Cough, Adult, Hypothyroidism. Follow up with: Return to emergency department Within 2 to 3 days; [place] [facility] (Find a Doc) Within 2 to 3 days; [facility] Within 2 to 3 days Keep your appointment with your PCP. Return to ER to any new or worsening symptoms: Chest pain, increasing shortness of breath, dizziness, fainting etc. Prescriptions (1) Active levothyroxine 125 mcg (0.125 mg) oral tablet 125 mcg = 1 Tab, Tab, Daily, Oral, 30 Day(s), 30 Tab, 0 refill(s), Route to Pharmacy Electronically, [facility]/pharmacy #[id number] . Counseled: Patient, Regarding diagnosis, Regarding diagnostic results, Regarding treatment plan, Regarding prescription, Patient indicated understanding of instructions. documented in this encounter Plan of Treatment Not on file documented as of this encounter Visit Diagnoses Not on filedocumented in this encounter
--- OUTSIDE RECORDS SUMMARY | 2025-01-05 13:07 | XMS_ITS | Encounter Summary ---
Author Organization [employer] Address [address] [place] [address] Care Team Providers Care Tunnel Drier Operator Name Role Phone Unavailable Primary Care Provider Unavailabl e Encounter Details Date Type Department Care Team (Late st Contact Info) Description 06/20/2021 Transcribed Document [facility] [place] Family Medicine [address] [place] [address] ProviderKentrell MD [address] [place] [address] Social History Tobacco Use Types Packs/Day Years [...] - Historical ProviderMD - 06/20/2021 7:42 PM CONSTRUCTION INSPECTOR Broset Violence Assessment Entered On: 06/20/2021 22:19 EST Performed On: 06/20/2021 22:19 EST by PENNY MICHELE RN Broset Violence Assessment Broset Violence Checklist of Symptoms : None Broset Violence Symptoms Subtotal : 0 Broset Violence Symptoms Indicator : Low risk (0) Broset Interventions : Deloit precautions for safety used PENNY MICHELE RN - 06/20/2021 22:19 EST documented in this encounter Plan of Treatment Not on file documented as of this encounter Visit Diagnoses Not on filedocumented in this encounter
--- OUTSIDE RECORDS SUMMARY | 2025-01-05 13:07 | XMS_ITS | Referral Summary ---
Author Organization [employer] Address [address] [place] [address] Care Team Providers Care Blue Line Hanger Name Role Phone Unavailable Primary Care Provider Unavailabl e Social History Tobacco Use Types Packs/Day Years Used Date Smoking Tobacco: Never Assessed Comments Unknown Sex and Gender Information Value Date Recorded Sex Assigned at Female 01/13/2022 1:46 PM CDT Legal Sex Female 1:46 PM CDT Gender Identity Female 01/13/2022 1:46 PM CDT Sexual Orientation Not on file Plan of Treatment Not on file
--- OUTSIDE RECORDS SUMMARY | 2025-01-05 13:07 | XMS_ITS | Encounter Summary ---
Author Organization [employer] Address [address] [place] [address] Care Team Providers Care Clinical Pharmacy Manager Name Role Phone Unavailable Primary Care Provider Unavailabl e Encounter Details Date Type Department Care Team (Late st Contact Info) Description 06/20/2021 Transcribed Document [facility] [place] Family Medicine [facility] [place] [address] ProviderKentrell MD [address], [place] [id number] Social History Tobacco Use Types Packs/Day Years [...] Conversion Note - Historical ProviderMD - 06/20/2021 10:11 PM MARKETING TECHNOLOGY SPECIALIST Patient: ESSENCE ANDUJAR Age: 61 years Sex: Female : 1960 Associated Diagnoses: Dental abscess; Dental caries Author: ANDRIA RIVAS APRN Basic Information Time seen: Date & time 06/20/2021 22:00:00. History source: Patient. Arrival mode: Private vehicle. History limitation: None. Additional information: Chief Complaint from Nursing Triage Note : Chief Complaint 06/20/2021 20:13 EST Chief Complaint I broke a tooth off 2 wks ago and since 6:00 tonight it has been excruciating. States pain is right lower jaw. Ibuprofen 1800. . Patient is 61-year-old female with past history of GERD and hepatitis C presented today with complaint of dental pain in the right lower jaw. Pain started 2 weeks ago but got worse today. Has a follow-up appointment with dentist in 2 weeks History of Present Illness The patient presents with dental pain. The onset was 3 hours ago. The course/duration of symptoms is worsening. Type of injury: none. The character of symptoms is swelling. The degree of pain is moderate. There are exacerbating factors including drinking and eating. The relieving factor is non-steroidal anti-inflammatory. Risk factors consist of Poor dental hygiene. Therapy today: over the counter medications. Associated symptoms: denies fever and denies chills. Additional history: bridge. Review of Systems Constitutional symptoms: No fever, no chills, no decreased activity. Skin symptoms: No rash, Eye symptoms: Vision unchanged. ENMT symptoms: dental pain, No sore throat, Respiratory symptoms: No shortness of breath, no cough. Cardiovascular symptoms: No chest pain, no syncope. Gastrointestinal symptoms: No abdominal pain, no vomiting, no diarrhea. Genitourinary symptoms: No dysuria, Musculoskeletal symptoms: No back pain, Neurologic symptoms: No headache, no dizziness, no altered level of consciousness. Psychiatric symptoms: No anxiety, Endocrine symptoms: No polyuria, Hematologic/Lymphatic symptoms: Bleeding tendency negative, Allergy/immunologic symptoms: No recurrent infections, Health Status Allergies: Allergic Reactions (All) Severity Not Documented Codeine- No reactions were documented. Penicillin- No reactions were documented.. Medications: (Selected) Inpatient Medications Ordered [place] 5 mg-325 mg oral tablet: 1 Tab, Oral, 1-Time clindamycin: 300 mg, Oral, 1-Time ondansetron 4 mg oral tablet, disintegratin mg, Oral, 1-Time Prescriptions Prescribed Florastor 250 mg oral capsule: 1 Cap, Oral, Daily, for 10 Day(s), 10 Cap, 0 Refill(s) clindamycin 150 mg oral capsule: 3 Cap, Oral, Q8H, for 10 Day(s), 90 Cap, 0 Refill(s) ibuprofen 600 mg oral tablet: 1 Tab, Oral, Q6H, 40 Tab, 0 Refill(s) levothyroxine 125 mcg (0.125 mg) oral tablet: 1 Tab, Oral, Daily, for 30 Day(s), 30 Tab, 0 Refill(s) Documented Medications Documented Adderall 30 mg oral [...] omeprazole: 40 mg, Oral, Daily, 0 Refill(s). Immunizations: Per nurse's notes. Menstrual history: Per nurse's notes. Past Medical/ Family/ Social History Medical history Reviewed as documented in chart. Surgical history: Stomach surgery. Bilateral tubal ligation ([id number]). Hernia repair ([id number])., Reviewed as documented in chart. Family history: [...] Physical Examination Vital Signs Vital Signs/Vital Measures 06/20/2021 20:13 EST Systolic Blood Pressure 108 mmHg Diastolic Blood Pressure 62 mmHg Temperature Source Temporal artery scanning Temperature Mode Fahrenheit Temperature, Fahrenheit 97.2 Deg F Clinical Temperature, C 36.2 Deg C Peripheral Pulse Rate 94 bpm Respiratory Rate 20 Breaths/Min Oxygen Saturation 96 % Oxygen Therapy Mode Room air . Measurements 06/20/2021 20:13 EST Height Source Stated Height Entry Format [place] Height/Length, GREEK (ft) 5 ft Height/Length GREEK 9 Inch CLINICALHEIGHT 175.26 cm [place] Body Weight 65.73 kg Weight Source, ED Standing scale Weight Entry Format [place] Weight Pakistani lb 140 lb CLINICALWEIGHT 63.64 kg Body Surface Area (BSA) 1.78 m2 Body Mass Index 20.7 kg/m2 . Oxygen Saturation 06/20/2021 20:13 EST Oxygen Saturation 96 % . General: Alert, no acute distress. Skin: Warm. Head: Normocephalic. Neck: Supple. Eye: Sclera: not icteric. Ears, nose, mouth and throat: Oral mucosa moist, Tooth: Right, # 26, dental caries, fracture, Gum swelling around the tooth. Cardiovascular: Regular rate and rhythm, No murmur, Normal peripheral perfusion, No edema. Respiratory: Lungs are clear to auscultation, respirations are non-labored, breath sounds are equal. Chest wall: No tenderness. Back: Nontender. Gastrointestinal: Soft, Nontender, Non distended, Normal bowel sounds. Neurological: No focal neurological deficit observed. Lymphatics: No lymphadenopathy. Psychiatric: Cooperative. Medical Decision Making Differential Diagnosis: Dental pain, dental carries, dental abscess. Impression and Plan Diagnosis Dental abscess - Discharge, Medical Dental caries - Discharge, Medical Plan Condition: Stable. Disposition: Discharged Admit/Transfer/Discharge: Discharge (Order): Start: 06/20/2021 22:18 EST, Discharge to: Home. Patient was given the following educational materials: Dental Pain. Follow up with: [facility] Within 2 to 3 days; Pete Balderas Within 2 to 3 days Call in the AM follow-up with dentist, return to ER for increasing pain, fever, facial swelling, difficulty swallowing. Counseled: Patient, Regarding diagnosis, Regarding diagnostic results, Regarding prescription, Patient indicated understanding of instructions. documented in this encounter Plan of Treatment Not on file documented as of this encounter Visit Diagnoses Not on filedocumented in this encounter
--- OUTSIDE RECORDS SUMMARY | 2025-01-05 13:07 | XMS_ITS | Clinical Summary ---
Author Organization [employer] Address [address] [place] [address] Care Team Providers Care Professor Of Biblical Studies Name Role Phone Unavailable Primary Care Provider [...]
--- OUTSIDE RECORDS SUMMARY | 2025-01-05 13:07 | XMS_ITS | Encounter Summary ---
Author Organization [employer] Address [address] [place] [address] Care Team Providers Care Crystallizer Operator Name Role Phone Unavailable Primary Care Provider Unavailabl e Encounter Details Date Type Department Care Team (Late st Contact Info) Description 04/20/2021 Transcribed Document [facility] [place] [address] [place] [address] ProviderKentrell MD [address] [place], [place] [phone] Social History Tobacco Use Types Packs/Day Years Used Date Smoking Tobacco: Never Assessed Comments Unknown Sex and Gender Information Value Date Recorded Sex Assigned at Female 01/13/2022 1:46 PM CDT Legal Sex Female 1:46 PM CDT Gender Identity Female 01/13/2022 1:46 PM CDT Sexual Orientation Not on file documented as of this encounter Miscellaneous Notes * Cerner Conversion Note - Historical ProviderMD - 04/20/2021 12:34 AM CDT CR Chest 1 Vw Portable Ordered: 04/18/2021 Modified Reason for Exam: SOA 04/19/2021 14:25 04/20/2021 00:34 (BETO HANDY PA) Reviewed by Provider, No further action required x1 documented in this encounter Plan of Treatment Not on file documented as of this encounter Visit Diagnoses Not on filedocumented in this encounter
--- OUTSIDE RECORDS SUMMARY | 2025-01-05 13:07 | XMS_ITS | Encounter Summary ---
Author Organization [employer] Address [address] [place] [id number] Care Team Providers Care Vascular Sonographer Name Role Phone Unavailable Primary Care Provider Unavailabl e Encounter Details Date Type Department Care Team (Late st Contact Info) Description 04/18/2021 Transcribed Document [facility] [place] Family Medicine Formerly [facility] [place] [address] ProviderKentrell MD [address], [place] [id number] Social History Tobacco Use Types Packs/Day Years [...] Conversion Note - Historical ProviderMD - 04/18/2021 10:54 PM CDT ED Discharge Entered On: 04/18/2021 22:54 EDT Performed On: 04/18/2021 22:54 EDT by DIXON CARDENAS RN Discharge Process Patient Disposition : Discharge Personal Belongings With Patient : Yes Patient Education Completed : Yes Teaching Evaluation : Verbalizes understanding IV Discontinued : Not applicable Nursing Documentation Completed : Yes DIXON CARDENAS RN - 04/18/2021 22:54 EDT ED Discharge Discharge To : Home with ambulatory/outpatient follow-up Mode Of Departure : Private vehicle Accompanied By : Unaccompanied Discharge Instructions Reviewed With, Opportunity For Questions Given : Patient Prescriptions Given to Patient : Electronically sent Number of Prescriptions Given : 1 Medications Given to Patient : No Number of Medications Given : 0 DIXON CARDENAS RN - 04/18/2021 22:54 EDT documented in this encounter Plan of Treatment Not on file documented as of this encounter Visit Diagnoses Not on filedocumented in this encounter
[2025-01-05 13:10] VITALS: BP 123/73; PULSE 88; RESP 20; TEMP 37.1; O2SAT 98; BMI 20.7
--- NOTE | 2025-01-05 13:22 | XR_ITS ---
FINAL REPORT CLINICAL HISTORY: cp COMPARISON: 12/04/2022 FINDINGS: A portable view of the chest was obtained. Cardiac and mediastinal silhouettes are within normal limits. Previously seen left basilar pneumonia has resolved. Linear atelectasis or scar is noted at the left lung base. There is no pleural effusion or pneumothorax. IMPRESSION: Interval resolution left basilar pneumonia. Linear atelectasis or scar left lung base. Reviewed, Interpreted and Dictated by Naomie Arias MD Transcribed by Seda Nixon Authenticated and [facility]
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
[2025-01-05] MEDS: MAGIC MOUTHWASH 300ML BOTTLE 15 ML PO (13:27)
[2025-01-05 13:30] LABS: Basophils % 0.6 % (0.1-2.0); Eosinophils # 0.3 Kmm3 (0.0-0.4); Eosinophils % 4.8 % (0.1-12.0); Hematocrit 36.1 % (37.0-47.0); Hemoglobin 11.9 g/dL (12.2-16.2); Immature Granulocytes # 0.02 10^3uL; Immature Granulocytes % 0.4 %; Lymphocytes # 1.6 K/mm3 (0.7-4.5); Lymphocytes % 31.2 % (10-50); Mean Corpuscular Hemoglobin 30.1 pg (27.0-31.2); Mean Corpuscular Volume 91.4 fl (81-99); Mean Platelet Volume 9.3 fl (7.4-10.4); Monocytes # 0.5 K/mm3 (0.1-1.0); Monocytes % 10.3 % (1.7-9.3); Neutrophils # 2.7 K/mm3 (1.8-7.8); Neutrophils % 52.7 % (37.0-80.0); Nucleated Red Blood Cells # 0 10^3/uL; Nucleated Red Blood Cells % 0 %; Platelet Count 247 K/mm3 (142-424); Red Blood Count 3.95 M/mm3 (4.20-5.40); Red Cell Distribution Width 13.6 % (11.5-17.5); Red Cell Distribution Width-SD 45.7 fL; White Blood Count 5.2 K/mm3 (4.8-10.8)
[2025-01-05 13:31] LABS: Albumin Level 4.6 g/dl (3.5-5.0); Chloride 104 mmol/L (98-107); Potassium 3.6 mmoL/L (3.5-5.1); Sodium 137 mmol/L (136-145)
[2025-01-05 13:34] LABS: Alanine Aminotransferase 46 U/L (12-78); Albumin/Globulin Ratio 1.5 (1.1-1.8); Alkaline Phosphatase 68 U/L (38-126); Anion Gap 8.6 mEq/L (5-15); Aspartate Amino Transferase 87 U/L (14-36); Bilirubin,Total 0.6 mg/dl (0.2-1.3); Blood Urea Nitrogen 17 mg/dl (7-17); Carbon Dioxide 28 mmol/L (22.0-30.0); Creatinine Clearance Estimated 57 mL/min (50-200); Estimated Glomerular Filt Rate 101 ml/min (>60); GFR (African American) 122 ML/MIN (>60); Total Protein,Serum 7.6 g/dl (6.3-8.2)
[2025-01-05 13:35] LABS: Calcium 9.2 mg/dl (8.4-10.2); Glucose 96 mg/dl (74-100)
[2025-01-05] MEDS: ACETAMINOPHEN 500MG TAB 1000 MG PO (13:49)
[2025-01-05 13:59] LABS: Troponin I < 0.01 ng/ml (0.00-0.034)
[2025-01-05 14:18] VITALS: BP 117/79; PULSE 81; RESP 18; O2SAT 98
[2025-01-05 14:30] VITALS: BP 118/70; PULSE 80; RESP 20; O2SAT 97
[2025-01-05 14:37] LABS: Barbiturates Screen,Urine Negative ng/ml (<200)
[2025-01-05 14:38] LABS: Benzodiazepines Screen,Urine Negative ng/ml (<200)
[2025-01-05 14:39] LABS: Cocaine Screen,Urine Negative ng/ml (<300)
[2025-01-05 14:40] LABS: Cannabinoid Screen,Urine Negative ng/ml (<50); Methadone Screen,Urine Negative ng/ml (<300)
[2025-01-05 14:41] LABS: Opiate Screen,Urine Negative ng/ml (<300)
[2025-01-05 14:41] LABS: HIV Combo NEGATIVE (Negative)
[2025-01-05 14:42] LABS: Phencyclidine Screen,Urine Negative ng/ml (<25)
[2025-01-05 14:48] LABS: Hepatitis C Ab Qual. W/ RFX REACTIVE (Negative)
[2025-01-05 14:51] VITALS: BP 118/70; PULSE 83; RESP 18; TEMP 37.1; O2SAT 96
[2025-01-05 15:37] LABS: Vitamin B12 669 pg/mL (239-931)
[2025-01-05 16:06] LABS: Folate > 20.00 ng/mL
[2025-01-08 15:16] LABS: Amphetamine Positive (.); Amphetamine (GC/MS) 2174 ng/mL (Cutoff=500); Amphetamines Positive (.); Methamphetamine Positive (.); Methamphetamine (GC/MS) >3000 ng/mL (Cutoff=500)
== END 2025-01-05 15:00 | disposition home or self-care (01) ==
PROVIDERS: Nurse Practitioner; Emergency Provider Student in an Organized Health Care Education/Training Program
DX: R07.9 Chest pain, unspecified (principal); K12.0 Recurrent oral aphthae; R51.9 Headache, unspecified; F15.129 Other stimulant abuse with intoxication, unspecified; F17.210 Nicotine dependence, cigarettes, uncomplicated
CPT/HCPCS: 71045; 80053; 80307; 80324; 82607; 82746; 84484; 85025; 86803; 87389; 87522; 93005; 99284